=== PATIENT | female | born 1945 | race Caucasian/White ===

== ENCOUNTER 2019-08-17 08:30 | Observation (INO) | payer MEDICARE, OTHER ==
--- NOTE | 2019-08-17 09:09 | RAD ---
Chest one view HISTORY: Weakness. Dyspnea. COMPARISON: 12/06/2014. FINDINGS: Cardiac silhouette is magnified by projection. Pulmonary vasculature is unremarkable. Mediastinum is midline with a dual lead left subclavian cardiac electronic device. Right hemidiaphragm elevation is unchanged. No lobar consolidation or evidence of pneumothorax. IMPRESSION : No active cardiopulmonary abnormalities are demonstrated.
[2019-08-17 09:15] LABS: #Basophils 0.1 thou/uL (0.0-0.2); #Eosinphils 0.5 thou/uL (0.0-0.7); #Lymphocytes 3.7 thou/uL (1.20-3.40); #Monocytes 0.9 thou/uL (0.11-0.59); #Neutrophils 9.4 thou/uL (1.40-6.50); %Basophils 0.6 % (0.0-1.0); %Eosinophils 3.4 % (0.0-10.0); %Lymphocytes 25.2 % (21.0-51.0); %Monocytes 6.2 % (0.0-10.0); %Neutrophils 64.6 % (42.0-75.0); Hemoglobin 10.2 g/dL (12.0-16.0); Mean Corpuscular HGB CONC 33.1 g/dL (32.0-36.0); Mean Corpuscular Hemoglobin 30.3 pg (27.0-31.0); Mean Corpuscular Volume 91.8 fL (78.0-98.0); Mean Platelet Volume 8.6 fL (7.4-10.4); Platelet Count 307 thou/uL (130-400); RBC Distribution Width 15.1 % (11.5-14.5); Red Blood Cell (RBC) Count 3.38 mill/uL (4.20-5.40); White Blood Cell (WBC) Count 14.5 thou/uL (4.8-10.8)
[2019-08-17] MEDS ORDERED: cefTRIAXone\\ROCEPHIN 2 GM VIAL ONE (09:19)
[2019-08-17] MEDS ORDERED: Sodium Chloride 0.9% 100 ML ONE (09:19)
[2019-08-17 09:21] LABS: Bilirubin Negative (Negative); Blood, Urine Negative (Negative); Clarity Clear (Clear); Glucose, Urine (Dipstick) Normal (Negative); Leukocyte Negative Leu/uL (Negative); Nitrite Negative (Negative); Protein, Urine (Dipstick) Negative (Neg-Trace); Urobilinogen Normal mg/dL (Less than 2)
[2019-08-17 09:39] LABS: ALT (SGPT) 18 U/L (8-55); AST (SGOT) 29 U/L (5-34); Alkaline Phosphatase 53 U/L (40-110); Anion Gap 14 mmol/L (10-20); BUN (Urea Nitrogen) 13 mg/dL (9.8-20.1); Bilirubin, Total 0.5 mg/dL (0.2-1.2); Calc. Creatinine Clearance 0 mL/min (70-130); Calcium 9.6 mg/dL (7.8-10.44); Carbon Dioxide 23 mmol/L (23-31); Chloride 108 mmol/L (98-107); Estimated GFR-MDRD 62; Globulin 3.6 g/dL (2.4-3.5); Glucose 127 mg/dL (83-110); Potassium 3.7 mmol/L (3.5-5.1); Protein, Total 7.6 g/dL (6.0-8.3); Sodium 141 mmol/L (136-145)
--- NOTE | 2019-08-17 14:07 | CT ---
CT OF THE HEAD WITHOUT CONTRAST: 08/17/19 COMPARISON: 12/05/14. HISTORY: Weakness, history of multiple strokes. TECHNIQUE: Axial CT imaging at 5 mm intervals from vertex through skull base without contrast. FINDINGS: The imaged paranasal sinuses and mastoid air cells are well aerated. There is no displaced calvarial fracture, intracranial hemorrhage, midline shift, or mass effect. There is atherosclerotic calcification involving the distal left vertebral artery and bilateral indira nous carotid arteries. IMPRESSION: No intracranial hemorrhage, midline shift or mass effect. If there is clinical concern for acute infa rction, follow-up brain MRI suggested. POS: BLACK
[2019-08-17] MEDS ORDERED: Acetaminophen 325 MG TAB PO PRN (16:11)
[2019-08-17] MEDS ORDERED: Ondansetron PF 4 MG/2 ML Vial IVP PRN (16:11)
[2019-08-17] MEDS ORDERED: Ondansetron ODT 4 MG TAB SL PRN (16:11)
--- NOTE | 2019-08-17 16:37 | PDOC.FPRHP ---
- History of Present Illness Chief Complaint: Fatigue History of Present Illness: Pt is a 73 yo female with PMH significant for hypothyroidism, DM I, HLD, vascular dementia, HTN, CAD s/p pacemaker, CKD II, hx of cardiac murmur who presents to the emergency department for increasing weakness over the last few days. Her is her primary liquid sugar fortifier who states he is unable to care for the pt at home. Her can usually assist with her ADL's but now she is unable to get out of bed with his assistance. She denied any other symptoms during my interview. Of note, she endorsed LLQ abdominal pain to Dr. Chung. [facility] ED Course: In the ED CXR, Brain CT were WNL. UA was clean. She had an elevated white count. - Allergies/Adverse Reactions Allergies Allergy/AdvReac Type Severity Reaction Status Date / Time Iodine and Iodide Containing Allergy Verified 05/25/19 13:33 Produc meperidine HCl [From Demerol] Allergy Verified 05/25/19 13:33 propoxyphene HCl Allergy Verified 05/25/19 13:33 [From Darvon] - Home Medications Medication Instructions Recorded Confirmed Type Fenofibrate Nanocrystallized 145 mg PO DAILY 12/03/14 08/17/19 History [Tricor] Losartan Potassium [Cozaar] 100 mg PO DAILY 12/03/14 08/17/19 History Metoprolol Succinate 50 mg PO DAILY 12/03/14 08/17/19 History Pregabalin [Lyrica] 75 mg PO BID 12/03/14 08/17/19 History Venlafaxine HCl [Effexor XR] 75 mg PO BID 12/03/14 08/17/19 History Amlodipine [Norvasc] 10 mg PO DAILY #0 tab 12/18/14 08/17/19 Rx Clopidogrel Bisulfate [Plavix] 75 mg PO DAILY #0 tab 12/18/14 08/17/19 Rx Albuterol Sulfate [Proair HFA] 1 puff INH Q4HR PRN 08/17/19 08/17/19 History Aspirin 81 mg PO DAILY 08/17/19 08/17/19 History Atorvastatin Calcium [Lipitor] 40 mg PO QPM 08/17/19 08/17/19 History Insulin Lispro [Humalog Kwikpen] 5 - 10 unit SQ BID 08/17/19 08/17/19 History Levemir Flexpen [Levemir FlexPen] 30 units SC 1800 08/17/19 08/17/19 History Levothyroxine Sodium [Synthroid] 25 mcg PO DAILY 08/17/19 08/17/19 History metFORMIN [Glucophage] 850 mg PO BID 08/17/19 08/17/19 History - History PMHx: hypothyroidism, DM I, HLD, vascular dementia, HTN, CAD s/p pacemaker, CKD II, hx of cardiac murmur PSHx: hysterectomy, L4-L5 fusion, Pacemaker FHx: Father - htn Social: Denies tobacco, alcohol, drugs - Review of Systems General: denies: fever/chills, weight/appetite/sleep changes Eyes: denies: eye pain, vision changes ENT: denies: nasal congestion, rhinorrhea Respiratory: denies: cough, congestion, shortness of breath Cardiovascular: denies: chest pain, palpitation, edema Gastrointestinal: reports: abdominal pain. denies: nausea, vomiting, diarrhea, constipation Genitourinary: denies: incontinence, dysuria Skin: denies: rashes, lesions Musculoskeletal: denies: pain, tenderness Neurological: reports: weakness. denies: numbness, syncope Psychological: denies: anxiety, depression - Vital signs BP: 145/92 HR: 78 RR: 20 Tmax: 97.7 Pox: 96% on RA Wt: 82 kg - Physical Exam Constitutional: NAD, awake, alert and oriented HEENT: PERRLA, EOMI Neck: FROM, trachea midline, no JVD Heart: RRR, normal S1/S2, no edema -Heart: 3/6 systolic murmur noted on exam Lungs: CTAB, no respiratory distress Abdomen: soft, bowel sounds present -Abdomen: large abdomen, did not appreciate significant tenderness of my exam Musculoskeletal: normal structure, normal tone Neurological: no focal deficit, CN II-XII intact, normal sensation Skin: no rash/lesions, capillary refill <2 seconds Heme/Lymphatic: no purpura, no petechia Psychiatric: normal mood and affect FMR H&P: Results - Labs Result Diagrams: 08/17/19 09:07 08/17/19 09:07 Lab results: WBC 14.5 thou/uL (4.8-10.8) H 08/17/19 09:07 Hgb 10.2 g/dL (12.0-16.0) L 08/17/19 09:07 Hct 31.0 % (36.0-47.0) L 08/17/19 09:07 MCV 91.8 fL (78.0-98.0) 08/17/19 09:07 Plt Count 307 thou/uL (130-400) 08/17/19 09:07 Neutrophils % 64.6 % (42.0-75.0) 08/17/19 09:07 Sodium 141 mmol/L (136-145) 08/17/19 09:07 Potassium 3.7 mmol/L (3.5-5.1) 08/17/19 09:07 Chloride 108 mmol/L (98-107) H 08/17/19 09:07 Carbon Dioxide 23 mmol/L (23-31) 08/17/19 09:07 BUN 13 mg/dL (9.8-20.1) 08/17/19 09:07 Creatinine 0.90 mg/dL (0.6-1.1) 08/17/19 09:07 Glucose 127 mg/dL (83-110) H 08/17/19 09:07 Calcium 9.6 mg/dL (7.8-10.44) 08/17/19 09:07 Total Bilirubin 0.5 mg/dL (0.2-1.2) 08/17/19 09:07 AST 29 U/L (5-34) 08/17/19 09:07 ALT 18 U/L (8-55) 08/17/19 09:07 Alkaline Phosphatase 53 U/L (40-110) 08/17/19 09:07 Serum Total Protein 7.6 g/dL (6.0-8.3) 08/17/19 09:07 Albumin 4.0 g/dL (3.4-4.8) 08/17/19 09:07 Urine Ketones Negative mg/dL (Negative) 08/17/19 09:00 Urine Blood Negative (Negative) 08/17/19 09:00 Urine Nitrite Negative (Negative) 08/17/19 09:00 Ur Leukocyte Esterase Negative Erika/uL (Negative) 08/17/19 09:00 - EKG Interpretation EKG: NSR - Radiology Interpretation Chest x-ray Status: image reviewed by me, report reviewed by me Additional comment: no acute abnormalities CT scan - head Status: report reviewed by me Additional comment: no acute abnormalities FMR H&P: A/P - Problem List (1) Physical deconditioning Current Visit: Yes Status: Acute Code(s): R53.81 - OTHER MALAISE (2) LLQ discomfort Current Visit: Yes Status: Acute Code(s): R10.32 - LEFT LOWER QUADRANT PAIN (3) CVA (cerebral vascular accident) Current Visit: No Status: Acute Code(s): I63.9 - CEREBRAL INFARCTION, UNSPECIFIED Qualifiers: CVA mechanism: thrombosis Precerebral and cerebral artery: unspecified cerebral artery Qualified Code(s): I63.30 - Cerebral infarction due to thrombosis of unspecified cerebral artery (4) Diabetes 1.5, managed as type 2 Current Visit: No Status: Chronic Code(s): E13.9 - OTHER SPECIFIED DIABETES MELLITUS WITHOUT COMPLICATIONS (5) Dyslipidemia Current Visit: No Status: Chronic Code(s): E78.5 - HYPERLIPIDEMIA, UNSPECIFIED - Plan Pt is a 73 yo female here for deconditioning, LLQ pain: # Deconditioning # Weakness - discussed with Senior Placement Advisors - will see pt - Acute rehab consult placed - pt and agree with plan - denied by [facility] out of ED due to insurance # LLQ Pain - discuss with Dr. Craven about CT Abdomen in the setting of a leukocytosis , weakness # CAD s/p pacemaker - continue home meds # Hypothyroid - continue home meds # HTN - continue home meds # Vascular Dementia - monitor # DM - continue home meds # CKD Stage II - monitor # Systolic Cardiac Murmur - known Diet: HH VTE: SCD's Fluids: SL Code: DNR Dispo: admit to medical obs FMR H&P: Upper Level - Plan Date/Time: 08/17/19 0987 Gagandeep Metcalf, DO PGY3, have evaluated this patient and agree with findings/ plan as outlined by supply chain intern resident. Pertinent changes/additions are listed here. This is a 73 yo F w/hx of CAD, CVA, DM2, aortic stenosis and vascular dementia. Upon H&P she appears to be A&O x4, however her answers are disjointed and dont always make sense. No family or friends are available. Per ERMD she was brought to the ER for weakness, however pt states that she was having belly pain all day. Other than a WBC count of 14.5 her labs and vitals are WNL. Her exam is significant for 3/6 systolic murmur that radiates to her carotids and LLQ and suprapubic tenderness. UTI or diverticulitis are within the DDX for her pain. UA is not c/w UTI, thus will consider CT abd/pelvis with contrast. Otherwise will have pt evaluated for rehab placement as it appears the major reason for her presentation is deconditioning Addendum - Attending - Attending Attestation Date/Time: 08/18/19 0512 I personally evaluated the patient and discussed the management with Dr. Raymond. I agree with the History, Examination, Assessment and Plan documented above with any addition or exceptions noted below.
[2019-08-17] MEDS ORDERED: Albuterol Sulfate 2.5 mg/0.5 ml Neb NEB PRN (17:57)
[2019-08-17] MEDS ORDERED: HumaLOG 300 UNITS/3 ML VIAL SC PRN (17:59)
[2019-08-17] MEDS ORDERED: Dextrose 5% in Water 1,000 ML IV PRN (17:59)
[2019-08-17] MEDS ORDERED: Dextrose 50% Abboject 50 ML SYRINGE SLOW IVP PRN (17:59)
[2019-08-17] MEDS ORDERED: Insulin Glargine 30 UNITS in Pre-Filled Syringe 1 EACH SC SCH (18:00)
[2019-08-17] MEDS ORDERED: Non-Formulary Item 1 EACH (Levemir Flexpen [Levemir Flexpen] 30 UNITS) SC SCH (18:00)
[2019-08-17] MEDS: Pregabalin 75 MG CAP PO SCH (20:56)
[2019-08-17] MEDS: Atorvastatin Calcium 40 MG TAB PO SCH (20:56)
[2019-08-17] MEDS: predniSONE 50 MG TAB PO SCH (20:56)
[2019-08-17] MEDS: metFORMIN 850 MG TAB PO SCH (20:56)
[2019-08-17] MEDS: Venlafaxine HCl XR 75 MG CAP PO SCH (21:03)
[2019-08-17] MEDS: Acetaminophen 325 MG TAB PO PRN (21:48)
[2019-08-18] MEDS: predniSONE 50 MG TAB PO SCH ×2 (01:41→08:00)
[2019-08-18] MEDS: Levothyroxine Sodium 25 MCG TAB PO SCH (05:35)
[2019-08-18] MEDS: HumaLOG 300 UNITS/3 ML VIAL SC PRN ×2 (05:36→12:30)
--- NOTE | 2019-08-18 06:34 | PDOC.FM ---
- Subjective Subjective: Pt is awake in bed. is not at bedside. She is AAO x 3. Does require some redirecting. She endorsed LQ abdominal pain. She denies constipation or diarrhea. She otherwise has no complaints. - Objective Vital Signs & Weight: Vital Signs (12 hours) Temp Pulse Resp BP Pulse Ox 08/18/19 05:00 98.0 F 87 16 148/81 H 93 L 08/18/19 00:36 97.8 F 85 18 127/62 95 08/18/19 00:00 97.8 F 88 18 127/62 95 08/17/19 20:33 98.0 F 85 18 143/71 H 93 L Weight Weight 81 kg Result Diagrams: 08/18/19 06:50 08/17/19 09:07 Phys Exam - Physical Examination Constitutional: NAD HEENT: PERRLA, moist MMs Neck: no nodes, full ROM Respiratory: no wheezing, clear to auscultation bilateral Cardiovascular: RRR 3/6 systolic murmur Gastrointestinal: soft, no distention, positive bowel sounds mild tenderness to deep palpation in LQ, no rebound or guarding Musculoskeletal: no edema, pulses present Neurological: moves all 4 limbs Dx/Plan (1) Physical deconditioning Code(s): R53.81 - OTHER MALAISE Status: Acute (2) LLQ discomfort Code(s): R10.32 - LEFT LOWER QUADRANT PAIN Status: Acute (3) CVA (cerebral vascular accident) Code(s): I63.9 - CEREBRAL INFARCTION, UNSPECIFIED Status: Acute Qualifiers: CVA mechanism: thrombosis Precerebral and cerebral artery: unspecified cerebral artery Qualified Code(s): I63.30 - Cerebral infarction due to thrombosis of unspecified cerebral artery (4) Diabetes 1.5, managed as type 2 Code(s): E13.9 - OTHER SPECIFIED DIABETES MELLITUS WITHOUT COMPLICATIONS Status: Chronic (5) Dyslipidemia Code(s): E78.5 - HYPERLIPIDEMIA, UNSPECIFIED Status: Chronic - Plan Plan: Pt is a 73 yo female here for deconditioning, LLQ pain: # Deconditioning # Weakness - discussed with Senior Placement Advisors - will see pt - Acute rehab consult placed - pt and agree with plan - denied by [facility] out of ED due to insurance # LLQ Pain - pending u/s. Pt has allergy to iodine # CAD s/p pacemaker - continue home meds # Hypothyroid - continue home meds # HTN - continue home meds # Vascular Dementia - monitor # Hx of CVA - R sided sensory deficits - not documented in exam yesterday; will need to confirm with today - pending MRI # DM - continue home meds # CKD Stage II - monitor # Systolic Cardiac Murmur - known Diet: HH VTE: SCD's Fluids: SL Code: DNR Dispo: admit to medical obs Addendum - Attending - Attending Attestation Date/Time: 08/18/19 1302 I personally evaluated the patient and discussed the management with Dr. Raymond. I agree with the History, Examination, Assessment and Plan documented above with any addition or exceptions noted below.
[2019-08-18 07:28] LABS: Hemoglobin 10.4 g/dL (12.0-16.0); Mean Corpuscular HGB CONC 33.2 g/dL (32.0-36.0); Mean Corpuscular Hemoglobin 30.1 pg (27.0-31.0); Mean Corpuscular Volume 90.6 fL (78.0-98.0); Platelet Count 333 thou/uL (130-400); Red Blood Cell (RBC) Count 3.44 mill/uL (4.20-5.40); White Blood Cell (WBC) Count 10.6 thou/uL (4.8-10.8)
[2019-08-18] MEDS ORDERED: diphenhydrAMINE 25 MG CAP PO SCH (08:00)
[2019-08-18] MEDS: Venlafaxine HCl XR 75 MG CAP PO SCH ×2 (09:58→20:39)
[2019-08-18] MEDS: Amlodipine 5 MG TAB PO SCH (09:58)
[2019-08-18] MEDS: Fenofibrate Nanocrystallized 145 MG TAB PO SCH (09:59)
[2019-08-18] MEDS: Clopidogrel Bisulfate 75 MG TAB PO SCH (09:59)
[2019-08-18] MEDS: Losartan 25 MG TAB PO SCH (09:59)
[2019-08-18] MEDS: Pregabalin 75 MG CAP PO SCH ×2 (10:00→20:38)
[2019-08-18] MEDS: Aspirin Chewable 81 MG TAB PO SCH (10:00)
[2019-08-18] MEDS: metFORMIN 850 MG TAB PO SCH ×2 (10:08→20:38)
[2019-08-18 10:37] LABS: Band 2 % (5-11); Lymphocytes 17 % (21-51); MDiff Complete? YES; Neutrophil 81 % (42-75); Platelet Morphology Comment Appears Adequate; Polychromasia SLIGHT = 2-3 cells (100X) (0-2/hpf)
--- NOTE | 2019-08-18 11:50 | CT ---
CT OF THE ABDOMEN AND PELVIS WITH CONTRAST: COMPARISON: CT abdomen/pelvis 10/31/2015. HISTORY: Left lower quadrant abdominal pain and leukocytosis. TECHNIQUE: Multiple contiguous axial images were obtained in a CT of the abdomen and pelvis with contrast. Sagi ttal and coronal reformats were performed. FINDINGS: Thee is a subcentimeter hypodensity in the right kidney which is too small to definitely characterize but could represent a cyst. A nonobstructing calcification is seen within the left kidney measuring 3 mm in size. There is a 1.0 cm hypodensity in the tail of the pancreas. The liver, gallbladder, a drenal gland, and spleen are unremarkable. The patient is status post hysterectomy. The large and small bowel are unremarkable. No free air, f ree fluid, or stranding changes are seen in the abdomen or pelvis. The abdominal or pelvic lymphaden opathy are seen. Atherosclerotic calcifications are seen in the aorta. Degenerative changes are seen in the spine. The visualized inferior thorax and abdominal wall soft t issues are unremarkable. IMPRESSION: 1. No evidence of acute intraabdominal/pelvic abnormality. 2. Pancreatic hypodensity is stable compared to the prior examination and may represent a small simp le cyst or a pseudocyst. 3. Likely small right renal cyst also remains stable. 4. Nonobstructing left renal calcification. POS: EZEQUIELA
[2019-08-18 12:34] LABS: Bacteria/HPF None Seen HPF (None Seen); Bilirubin Negative (Negative); Blood, Urine 1+ (Negative); Clarity Clear (Clear); Glucose, Urine (Dipstick) 30 mg/dL (Negative); Leukocyte 75 Leu/uL (Negative); Nitrite Negative (Negative); Protein, Urine (Dipstick) 50 mg/dL (Neg-Trace); Squamous Epithelial 0-3 HPF (0-3); Urobilinogen Normal mg/dL (Less than 2)
[2019-08-18 12:36] LABS: Urine Culture Reflex Yes Yes
[2019-08-18] MEDS ORDERED: Iopamidol-370 76% 500 ML 1 ML ONE (13:17)
[2019-08-18] MEDS: Lactated Ringer's 1,000 ML IV SCH ×2 (16:48→23:54)
[2019-08-18] MEDS ORDERED: Prevnar 13-Val Conj/PF 0.5 ML SYRINGE IM ONE (17:45)
[2019-08-18] MEDS: Insulin Glargine 30 UNITS in Pre-Filled Syringe 1 EACH SC SCH (17:55)
[2019-08-18] MEDS: Atorvastatin Calcium 40 MG TAB PO SCH (20:38)
[2019-08-18] MEDS: Senokot S 8.6-50 MG TAB PO SCH (20:39)
[2019-08-19] MEDS: Levothyroxine Sodium 25 MCG TAB PO SCH (05:36)
--- NOTE | 2019-08-19 05:52 | PDOC.FM ---
- Subjective Subjective: Patient was resting comfortably in bed at the time of evaluation. She denied any acute overnight events, but stated that she was unable with the nurses for an unknown reason. Patient demonstrate difficulty with word finding and was slow to answer questions, often requiring redirection. - Objective Vital Signs & Weight: Vital Signs (12 hours) Temp Pulse Resp BP Pulse Ox 08/18/19 23:56 98.3 F 08/18/19 20:36 99.3 F 78 16 129/75 96 Weight Weight 81 kg I&O: 08/17/19 08/18/19 08/19/19 06:59 06:59 06:59 Intake Total 240 Output Total 200 975 Balance 40 -975 Result Diagrams: 08/18/19 06:50 08/19/19 08:51 Phys Exam - Physical Examination Constitutional: NAD HEENT: PERRLA, moist MMs, oral pharynx no lesions Neck: supple, full ROM Respiratory: no wheezing, no rales, no rhonchi, clear to auscultation bilateral Cardiovascular: RRR, no significant murmur, no rub Gastrointestinal: soft, non-tender, no distention, positive bowel sounds Musculoskeletal: no edema, pulses present Right sided weakness - patient states that she is at baseline Deviation from normal: A&Ox2 Skin: no rash Dx/Plan (1) LLQ discomfort Code(s): R10.32 - LEFT LOWER QUADRANT PAIN Status: Acute (2) Physical deconditioning Code(s): R53.81 - OTHER MALAISE Status: Acute (3) Dehydration, mild Code(s): E86.0 - DEHYDRATION Status: Acute (4) Diabetes 1.5, managed as type 2 Code(s): E13.9 - OTHER SPECIFIED DIABETES MELLITUS WITHOUT COMPLICATIONS Status: Chronic (5) Dyslipidemia Code(s): E78.5 - HYPERLIPIDEMIA, UNSPECIFIED Status: Chronic (6) Hypertension Code(s): I10 - ESSENTIAL (PRIMARY) HYPERTENSION Status: Chronic Qualifiers: Hypertension type: essential hypertension Qualified Code(s): I10 - Essential (primary) hypertension - Plan Plan: Patient is a 73 y/o female who presented to the ED for evaluation of physical deconditioning after patient's stated that he was no longer to care for her at home. # Deconditioning - Senior Placement Advisors: Consulted, recs appreciated - Acute Rehab consult placed - patient and both agree with plan - Patient was denied by [facility] following evaluation in ED 04/09 insurance provider # LLQ Pain - WBCs: 14.5 on admission - down to 10.6 on 08/17 - possibly Reactive Leukocytosis - CT ABD/Pelvis: NAF - Possibly 04/09 to urinary retention / stool retention - patient required Martínez catheter placement overnight - Martínez catheter placed on 08/18 - s/p evacuation of 350 ml of clear urine - Senokot S for constipation - Will monitor closely # CAD s/p pacemaker - Will continue home medication regimen # Hypothyroid - Continue home medication regimen # HTN - Continue home medication regimen # Vascular Dementia - Patient's stated that patient was altered from baseline, although reportedly A&Ox3 on initial evaluation - See below # Hx of CVA - Right-sided sensory deficits - not documented on previous exam; will need to confirm with today - Patient states that her right-sided deficits are stable, but patient was A& Ox2 so clinical picture is still unclear - CT Brain: NAF - MRI Brain: Pending # DM2 - Continue home medication regimen # CKD Stage II - Will continue to monitor # Systolic Cardiac Murmur - Stable - Will continue to monitor CODE: DNR PCP: IAN Fletcher Diet: LUCILA VTE: SCD's Fluids: SL Dispo: Patient is currently stable and admitted to the Medical Floor for ongoing evaluation of deconditioning. Case Management / Senior Placement Advisors consulted, recs appreciated. Will continue to evaluate for possible neurocognitive deficits - MRI pending later today. Expected LOS > 48H. Addendum - Attending - Attending Attestation Date/Time: 08/19/19 5980 I personally evaluated the patient and discussed the management with Dr. Forrester. I agree with the History, Examination, Assessment and Plan documented above with any addition or exceptions noted below. Patient status unchanged. We are still unable to find a cause of her supposed acute decline in function and mentation, or anything that would support an inpatient diagnosis. Possible MRI to evaluate for recurrent CVA but may not be possible due to her PM. CM working on placement.
[2019-08-19] MEDS: Senokot S 8.6-50 MG TAB PO SCH ×2 (08:24→21:23)
[2019-08-19] MEDS: Fenofibrate Nanocrystallized 145 MG TAB PO SCH (08:24)
[2019-08-19] MEDS: Amlodipine 5 MG TAB PO SCH (08:24)
[2019-08-19] MEDS: Clopidogrel Bisulfate 75 MG TAB PO SCH (08:25)
[2019-08-19] MEDS: Losartan 25 MG TAB PO SCH (08:25)
[2019-08-19] MEDS: Venlafaxine HCl XR 75 MG CAP PO SCH ×2 (08:26→21:23)
[2019-08-19] MEDS: metFORMIN 850 MG TAB PO SCH ×2 (08:26→21:21)
[2019-08-19] MEDS: Aspirin Chewable 81 MG TAB PO SCH (08:26)
[2019-08-19] MEDS: Pregabalin 75 MG CAP PO SCH ×2 (08:26→21:21)
[2019-08-19 09:28] LABS: Anion Gap 14 mmol/L (10-20); BUN (Urea Nitrogen) 21 mg/dL (9.8-20.1); Calc. Creatinine Clearance 66 mL/min (70-130); Carbon Dioxide 25 mmol/L (23-31); Chloride 104 mmol/L (98-107); Estimated GFR-MDRD 55; Glucose 105 mg/dL (83-110); Potassium 3.4 mmol/L (3.5-5.1); Sodium 140 mmol/L (136-145)
[2019-08-19] MEDS ORDERED: Potassium Chloride 20 MEQ TAB PO SCH (10:45)
[2019-08-19] MEDS: Lactated Ringer's 1,000 ML IV SCH ×3 (13:16→21:23)
[2019-08-19] MEDS: Insulin Glargine 30 UNITS in Pre-Filled Syringe 1 EACH SC SCH (18:24)
[2019-08-19 18:36] VITALS: BMI 33.1
[2019-08-19] MEDS: Atorvastatin Calcium 40 MG TAB PO SCH (21:21)
[2019-08-20] MEDS: Lactated Ringer's 1,000 ML IV SCH ×2 (03:54→08:32)
[2019-08-20] MEDS: Acetaminophen 325 MG TAB PO PRN (03:54)
[2019-08-20] MEDS: Levothyroxine Sodium 25 MCG TAB PO SCH (05:17)
[2019-08-20 05:37] LABS: #Eosinphils 0.3 thou/uL (0.0-0.7); #Lymphocytes 4.1 thou/uL (1.20-3.40); #Neutrophils 7.6 thou/uL (1.40-6.50); %Basophils 0.4 % (0.0-1.0); %Lymphocytes 31.4 % (21.0-51.0); %Monocytes 7.9 % (0.0-10.0); %Neutrophils 58.4 % (42.0-75.0); Hemoglobin 10.1 g/dL (12.0-16.0); Mean Corpuscular HGB CONC 33.2 g/dL (32.0-36.0); Mean Corpuscular Hemoglobin 30.1 pg (27.0-31.0); Mean Corpuscular Volume 90.8 fL (78.0-98.0); Mean Platelet Volume 8.5 fL (7.4-10.4); Platelet Count 358 thou/uL (130-400); RBC Distribution Width 15.2 % (11.5-14.5); Red Blood Cell (RBC) Count 3.36 mill/uL (4.20-5.40)
--- NOTE | 2019-08-20 05:52 | PDOC.FM ---
- Subjective Subjective: Patient was pleasant and resting comfortably in bed at the time of evaluation. She denied any acute overnight events, to include chest pain, SOB and subjective fevers. Note: Per nursing staff, patient's provided documentation of make/model of current cardiac device. - Objective Vital Signs & Weight: Vital Signs (12 hours) Temp Pulse Resp BP Pulse Ox 08/19/19 21:03 97.7 F 74 17 130/78 92 L Weight Admit Weight 80.739 kg Weight 84.8 kg I&O: 08/18/19 08/19/19 08/20/19 06:59 06:59 06:59 Intake Total 240 1200 1880 Output Total 200 1525 1800 Balance 40 -325 80 Result Diagrams: 08/20/19 05:03 08/20/19 05:03 Phys Exam - Physical Examination Constitutional: NAD HEENT: PERRLA, moist MMs, sclera anicteric, oral pharynx no lesions Neck: supple, full ROM Respiratory: no wheezing, no rales, no rhonchi, clear to auscultation bilateral Cardiovascular: RRR, no rub 3/6 systolic murmur with radiation to both Carotid Arteries Gastrointestinal: soft, non-tender, no distention, positive bowel sounds Musculoskeletal: no edema, pulses present Neurological: non-focal Continued right-sided weakness of upper/lower extremities Psychiatric: normal affect Deviation from normal: A&Ox2 (Person, Time) Skin: no rash Dx/Plan (1) LLQ discomfort Code(s): R10.32 - LEFT LOWER QUADRANT PAIN Status: Acute (2) Physical deconditioning Code(s): R53.81 - OTHER MALAISE Status: Acute (3) Dehydration, mild Code(s): E86.0 - DEHYDRATION Status: Acute (4) Diabetes 1.5, managed as type 2 Code(s): E13.9 - OTHER SPECIFIED DIABETES MELLITUS WITHOUT COMPLICATIONS Status: Chronic (5) Dyslipidemia Code(s): E78.5 - HYPERLIPIDEMIA, UNSPECIFIED Status: Chronic (6) Hypertension Code(s): I10 - ESSENTIAL (PRIMARY) HYPERTENSION Status: Chronic Qualifiers: Hypertension type: essential hypertension Qualified Code(s): I10 - Essential (primary) hypertension - Plan Plan: Patient is a 73 y/o female who presented to the ED for evaluation of physical deconditioning after patient's stated that he was no longer to care for her at home. # Deconditioning - Senior Placement Advisors: Consulted, recs appreciated - Acute Rehab consult placed - patient and both agree with plan - Patient was denied by [facility] following evaluation in ED 04/09 insurance provider # LLQ Pain - WBCs: 14.5 on admission - down to 10.6 on 08/17 - possibly Reactive Leukocytosis - CT ABD/Pelvis: NAF - Possibly 04/09 to urinary retention / stool retention - patient required Martínez catheter placement overnight - Martínez catheter placed on 08/18 - s/p evacuation of 350 ml of clear urine - Senokot S for constipation - will consider augmenting today if patient complains of constipation - Will monitor closely # CAD s/p pacemaker - Will continue home medication regimen # Hypothyroid - Continue home medication regimen # HTN - Continue home medication regimen # Vascular Dementia - Patient's stated that patient was altered from baseline, although reportedly A&Ox3 on initial evaluation - See below # Hx of CVA - Right-sided sensory deficits - consistent throughout hospitalization - Patient states that her right-sided deficits are stable, but patient was A& Ox2 so clinical picture is still unclear - CT Brain: NAF - MRI Brain: Pending # DM2 - Continue home medication regimen # CKD Stage II - Will continue to monitor # Systolic Cardiac Murmur - Stable - Will continue to monitor CODE: DNR PCP: IAN Fletcher Diet: VTE: SCD's Fluids: SL Dispo: Patient is currently stable and admitted to the Medical Floor for ongoing evaluation of deconditioning - medically stable at this point in time. Case Management / Senior Placement Advisors consulted, recs appreciated. Will continue to evaluate for possible neurocognitive deficits - MRI pending although may not be able to complete based on cardiac device - will confirm with Radiology today. Expected LOS > 48H. Addendum - Attending - Attending Attestation Date/Time: 08/20/19 0800 I personally evaluated the patient and discussed the management with Dr. Forrester. I agree with the History, Examination, Assessment and Plan documented above with any addition or exceptions noted below. Patient more alert this morning with clearer thought and speech. We still have been unable to find any major medical issue or qualifying inpatient diagnosis. CM on board for assistance with placement. Rehab has evaluated patient. Continue home meds and await placement.
[2019-08-20 06:01] LABS: Anion Gap 12 mmol/L (10-20); BUN (Urea Nitrogen) 18 mg/dL (9.8-20.1); Calc. Creatinine Clearance 81 mL/min (70-130); Carbon Dioxide 26 mmol/L (23-31); Chloride 102 mmol/L (98-107); Estimated GFR-MDRD 67; Glucose 79 mg/dL (83-110); Potassium 3.5 mmol/L (3.5-5.1); Sodium 136 mmol/L (136-145)
[2019-08-20] MEDS: Clopidogrel Bisulfate 75 MG TAB PO SCH (08:28)
[2019-08-20] MEDS: Losartan 25 MG TAB PO SCH (08:28)
[2019-08-20] MEDS: Fenofibrate Nanocrystallized 145 MG TAB PO SCH (08:28)
[2019-08-20] MEDS: Potassium Chloride 20 MEQ TAB PO SCH (08:28)
[2019-08-20] MEDS: Amlodipine 5 MG TAB PO SCH (08:29)
[2019-08-20] MEDS: Venlafaxine HCl XR 75 MG CAP PO SCH ×2 (08:29→21:57)
[2019-08-20] MEDS: Aspirin Chewable 81 MG TAB PO SCH (08:30)
[2019-08-20] MEDS: Pregabalin 75 MG CAP PO SCH ×2 (08:30→22:01)
[2019-08-20] MEDS: Senokot S 8.6-50 MG TAB PO SCH ×2 (08:30→22:01)
[2019-08-20] MEDS: metFORMIN 850 MG TAB PO SCH ×2 (08:31→22:00)
[2019-08-20] MEDS ORDERED: Tamsulosin HCl 0.4 MG CAP PO SCH (12:00)
[2019-08-20] MEDS ORDERED: Polyethylene Glycol 3350 17 GM Packet PO SCH (12:00)
[2019-08-20] MEDS ORDERED: Fleet Enema 133 ML BOT PR SCH (14:00)
[2019-08-20] MEDS: Insulin Glargine 30 UNITS in Pre-Filled Syringe 1 EACH SC SCH (17:41)
[2019-08-20] MEDS: Atorvastatin Calcium 40 MG TAB PO SCH (21:57)
[2019-08-21 05:49] LABS: Anion Gap 13 mmol/L (10-20); BUN (Urea Nitrogen) 18 mg/dL (9.8-20.1); Calc. Creatinine Clearance 77 mL/min (70-130); Calcium 9.1 mg/dL (7.8-10.44); Carbon Dioxide 25 mmol/L (23-31); Chloride 103 mmol/L (98-107); Estimated GFR-MDRD 63; Glucose 125 mg/dL (83-110); Potassium 3.7 mmol/L (3.5-5.1); Sodium 137 mmol/L (136-145)
[2019-08-21] MEDS: Levothyroxine Sodium 25 MCG TAB PO SCH (06:13)
--- NOTE | 2019-08-21 06:19 | PDOC.FM ---
- Subjective Subjective: Patient was resting comfortably in bed at the time of evaluation. She denied any acute overnight events, other than poor sleep due to the nature of the hospital bed. - Objective Vital Signs & Weight: Vital Signs (12 hours) Temp Pulse Resp BP Pulse Ox 08/21/19 03:58 97.9 F 72 18 131/80 93 L 08/20/19 23:44 98.1 F 70 18 139/77 95 08/20/19 20:29 97.6 F 67 18 109/68 94 L Weight Admit Weight 80.739 kg Weight 84.8 kg I&O: 08/19/19 08/20/19 08/21/19 06:59 06:59 06:59 Intake Total 1200 1880 480 Output Total 1525 1800 Balance -325 80 480 Result Diagrams: 08/20/19 05:03 08/21/19 05:03 Phys Exam - Physical Examination Constitutional: NAD HEENT: moist MMs, sclera anicteric, oral pharynx no lesions Neck: supple, full ROM Respiratory: no wheezing, no rales, no rhonchi, clear to auscultation bilateral Cardiovascular: RRR, no significant murmur, no rub Gastrointestinal: soft, non-tender, no distention, positive bowel sounds Musculoskeletal: no edema, pulses present Moderately decreased strength and ROM in RUE and RLE Dx/Plan (1) LLQ discomfort Code(s): R10.32 - LEFT LOWER QUADRANT PAIN Status: Acute (2) Physical deconditioning Code(s): R53.81 - OTHER MALAISE Status: Acute (3) Dehydration, mild Code(s): E86.0 - DEHYDRATION Status: Acute (4) Diabetes 1.5, managed as type 2 Code(s): E13.9 - OTHER SPECIFIED DIABETES MELLITUS WITHOUT COMPLICATIONS Status: Chronic (5) Dyslipidemia Code(s): E78.5 - HYPERLIPIDEMIA, UNSPECIFIED Status: Chronic (6) Hypertension Code(s): I10 - ESSENTIAL (PRIMARY) HYPERTENSION Status: Chronic Qualifiers: Hypertension type: essential hypertension Qualified Code(s): I10 - Essential (primary) hypertension - Plan Plan: Patient is a 73 y/o female who presented to the ED for evaluation of physical deconditioning and possible AMS after patient's stated that he was no longer able to care for her at home. # Deconditioning - Senior Placement Advisors: Consulted, recs appreciated - Acute Rehab consult placed - patient and both agree with plan - Patient was denied by [facility] following evaluation in ED / insurance provider # LLQ Pain - WBCs: 14.5 on admission - down to 10.6 on 08/17 - possibly Reactive Leukocytosis - CT ABD/Pelvis: NAF - Possibly 2/2 to urinary retention / stool retention - patient has Martínez Catheter in place - Voiding Trial: Passed on 08/19 - will attempt to d/c Martínez later this AM - Senokot S, Miralax and Fleets Enemas for constipation - s/p "massive" bowel movement on 08/19, per Nursing - Will monitor closely # CAD s/p pacemaker - Will continue home medication regimen # Hypothyroid - Continue home medication regimen # HTN - Continue home medication regimen # Vascular Dementia - Patient's stated that patient was altered from baseline on presentation, although reportedly A&Ox3 on initial evaluation - Patient's now notes that patient is "more like herself" - See below # Hx of CVA - Right-sided sensory deficits - consistent throughout hospitalization - Patient states that her right-sided deficits are stable, but patient was A& Ox2 so clinical picture is still unclear - CT Brain: NAF - MRI Brain: Pending - Will likely not performed based on cardiac device - will re-engage with Radiology today # DM2 - Continue home medication regimen # CKD Stage II - Will continue to monitor # Systolic Cardiac Murmur - Stable - Will continue to monitor CODE: DNR PCP: IAN Fletcher Diet: HH VTE: SCD's Fluids: SL Dispo: Patient is currently stable and admitted to the Medical Floor for ongoing evaluation of deconditioning - medically stable at this point in time. Case Management / Senior Placement Advisors consulted, recs appreciated. Will continue to evaluate for possible neurocognitive deficits - MRI pending although may not be able to complete based on cardiac device - will confirm with Radiology today. Expected LOS > 48H. Addendum - Attending - Attending Attestation Date/Time: 08/21/19 0049 I personally evaluated the patient and discussed the management with Dr. Forrester I agree with the History, Examination, Assessment and Plan documented above with any addition or exceptions noted below - Patient without complaints. Afebrile VSS A/P: 1) Deconditioning- awaiting insurance approval for rehab. Continue PT/OT. 2) Urinary retention- voiding trial passed. 3) Constipation- resolved; continue bowel regimen
[2019-08-21] MEDS: Acetaminophen 325 MG TAB PO PRN ×2 (08:31→16:45)
[2019-08-21] MEDS: Clopidogrel Bisulfate 75 MG TAB PO SCH (08:35)
[2019-08-21] MEDS: Senokot S 8.6-50 MG TAB PO SCH ×2 (08:35→21:20)
[2019-08-21] MEDS: Tamsulosin HCl 0.4 MG CAP PO SCH (08:35)
[2019-08-21] MEDS: Fenofibrate Nanocrystallized 145 MG TAB PO SCH (08:35)
[2019-08-21] MEDS: Aspirin Chewable 81 MG TAB PO SCH (08:35)
[2019-08-21] MEDS: metFORMIN 850 MG TAB PO SCH ×2 (08:35→21:20)
[2019-08-21] MEDS: Venlafaxine HCl XR 75 MG CAP PO SCH ×2 (08:35→21:20)
[2019-08-21] MEDS: Polyethylene Glycol 3350 17 GM Packet PO SCH (08:36)
[2019-08-21] MEDS: Potassium Chloride 20 MEQ TAB PO SCH (08:36)
[2019-08-21] MEDS: Fleet Enema 133 ML BOT PR SCH (08:36)
[2019-08-21] MEDS: Pregabalin 75 MG CAP PO SCH ×2 (08:37→21:21)
[2019-08-21] MEDS: Amlodipine 5 MG TAB PO SCH ×2 (08:57→09:46)
[2019-08-21] MEDS: Losartan 25 MG TAB PO SCH ×2 (08:57→09:45)
[2019-08-21] MEDS ORDERED: Ondansetron ODT 4 MG TAB PO PRN (13:18)
[2019-08-21] MEDS: HumaLOG 300 UNITS/3 ML VIAL SC PRN (16:44)
[2019-08-21] MEDS: Insulin Glargine 30 UNITS in Pre-Filled Syringe 1 EACH SC SCH (17:52)
[2019-08-21] MEDS: Atorvastatin Calcium 40 MG TAB PO SCH (21:20)
[2019-08-22 05:53] LABS: Anion Gap 10 mmol/L (10-20); BUN (Urea Nitrogen) 19 mg/dL (9.8-20.1); Calc. Creatinine Clearance 72 mL/min (70-130); Calcium 8.9 mg/dL (7.8-10.44); Carbon Dioxide 26 mmol/L (23-31); Chloride 104 mmol/L (98-107); Estimated GFR-MDRD 59; Glucose 99 mg/dL (83-110); Potassium 3.8 mmol/L (3.5-5.1); Sodium 136 mmol/L (136-145)
[2019-08-22] MEDS: Levothyroxine Sodium 25 MCG TAB PO SCH (05:54)
--- NOTE | 2019-08-22 05:55 | PDOC.FM ---
- Subjective Subjective: Patient was resting comfortably in bed, watching TV, at the time of evaluation. Patient denied any acute overnight events, but demonstrated notable difficulty with word-finding compared to previous exam. Patient was A&Ox3. - Objective Vital Signs & Weight: Vital Signs (12 hours) Temp Pulse Resp BP BP Pulse Ox 08/22/19 04:14 97.9 F 69 18 108/67 94 L 08/22/19 00:00 98 F 80 16 124/72 95 08/21/19 20:00 97.9 F 60 18 103/68 103/68 96 Weight Admit Weight 80.739 kg Weight 84.8 kg I&O: 08/20/19 08/21/19 08/22/19 06:59 06:59 06:59 Intake Total 1880 480 610 Output Total 1800 950 Balance 80 480 -340 Result Diagrams: 08/20/19 05:03 08/22/19 05:03 Phys Exam - Physical Examination Constitutional: NAD HEENT: moist MMs, sclera anicteric, oral pharynx no lesions Neck: supple, full ROM Respiratory: no wheezing, no rales, no rhonchi, clear to auscultation bilateral Cardiovascular: RRR, no rub 3/6 systolic murmur heard diffusely, with radiation to Carotid Arteries Gastrointestinal: soft, non-tender, no distention, positive bowel sounds Musculoskeletal: no edema, pulses present Right-sided weakness - stable Psychiatric: A&O x 3 Skin: no rash Dx/Plan (1) LLQ discomfort Code(s): R10.32 - LEFT LOWER QUADRANT PAIN Status: Resolved (2) Physical deconditioning Code(s): R53.81 - OTHER MALAISE Status: Acute (3) Dehydration, mild Code(s): E86.0 - DEHYDRATION Status: Resolved (4) Diabetes 1.5, managed as type 2 Code(s): E13.9 - OTHER SPECIFIED DIABETES MELLITUS WITHOUT COMPLICATIONS Status: Chronic (5) Dyslipidemia Code(s): E78.5 - HYPERLIPIDEMIA, UNSPECIFIED Status: Chronic (6) Hypertension Code(s): I10 - ESSENTIAL (PRIMARY) HYPERTENSION Status: Chronic Qualifiers: Hypertension type: essential hypertension Qualified Code(s): I10 - Essential (primary) hypertension - Plan Plan: Patient is a 73 y/o female who presented to the ED for evaluation of physical deconditioning and possible AMS after patient's stated that he was no longer able to care for her at home. # Deconditioning - Senior Placement Advisors: Consulted, recs appreciated - currently pending insurance provider authorization - Acute Rehab consult placed - patient and both agree with plan - Patient was denied by [facility] following evaluation in ED 04/09 insurance provider - PT/OT: Consulted, recs appreciated # LLQ Pain, resolved - WBCs: 14.5 on admission - down to 10.2 on 08/17 w/ slight bump to 13.0 on 08/18 - possibly Reactive Leukocytosis - Patient afebrile w/ VSS - CT ABD/Pelvis: NAF - Possibly 04/09 to urinary retention / stool retention - Voiding Trial: Passed on 08/19 - Martínez DC'd on 08/20 - Senokot S, Miralax and Fleets Enemas for constipation - s/p "massive" bowel movement on 08/19, per Nursing - Patient denies ABD symptoms this AM with benign physical exam # CAD s/p pacemaker - Will continue home medication regimen # Hypothyroid - Continue home medication regimen # HTN - Continue home medication regimen # Vascular Dementia - Patient's stated that patient was altered from baseline on presentation, although reportedly A&Ox3 on initial evaluation - Patient's now notes that patient is "more like herself" - Patient's mood and mental status appear to have improved since initial presentation, w/ A&OX3 on most recent evaluation - See below # Hx of CVA - Right-sided sensory deficits - consistent throughout hospitalization - Patient states that her right-sided deficits are stable - CT Brain: NAF - MRI Brain: Not performed due to patient's cardiac device # DM2 - Continue home medication regimen # CKD Stage II - Will continue to monitor # Systolic Cardiac Murmur - Stable - Will continue to monitor CODE: DNR PCP: IAN Fletcher Diet: HH Activity: Ambulate w/ Assist VTE: SCD's Fluids: SL Dispo: Patient is currently stable and admitted to the Medical Floor for ongoing evaluation of Deconditioning - medically stable at this point in time. Case Management / Senior Placement Advisors consulted, recs appreciated. Will continue to monitor mental status and prep for DC pending insurance provider authorization. Expected LOS > 48H.
[2019-08-22] MEDS: Amlodipine 5 MG TAB PO SCH (07:45)
[2019-08-22] MEDS: Polyethylene Glycol 3350 17 GM Packet PO SCH (07:45)
[2019-08-22] MEDS: Losartan 25 MG TAB PO SCH (07:46)
[2019-08-22] MEDS: Venlafaxine HCl XR 75 MG CAP PO SCH ×2 (07:46→21:05)
[2019-08-22] MEDS: Tamsulosin HCl 0.4 MG CAP PO SCH (07:46)
[2019-08-22] MEDS: Clopidogrel Bisulfate 75 MG TAB PO SCH (07:46)
[2019-08-22] MEDS: Fenofibrate Nanocrystallized 145 MG TAB PO SCH (07:46)
[2019-08-22] MEDS: Potassium Chloride 20 MEQ TAB PO SCH (07:47)
[2019-08-22] MEDS: Aspirin Chewable 81 MG TAB PO SCH (07:47)
[2019-08-22] MEDS: Senokot S 8.6-50 MG TAB PO SCH ×2 (07:47→21:06)
[2019-08-22] MEDS: Pregabalin 75 MG CAP PO SCH ×2 (07:47→21:06)
[2019-08-22] MEDS: Fleet Enema 133 ML BOT PR SCH (08:01)
[2019-08-22] MEDS: metFORMIN 850 MG TAB PO SCH ×2 (08:18→21:06)
[2019-08-22] MEDS: Atorvastatin Calcium 40 MG TAB PO SCH (21:06)
[2019-08-22] MEDS: Insulin Glargine 30 UNITS in Pre-Filled Syringe 1 EACH SC SCH (21:07)
--- NOTE | 2019-08-23 05:57 | PDOC.FM ---
- Subjective Subjective: Patient was laying in bed, finishing her breakfast, at the time of evaluation. She denied any acute overnight events. Patient's mood and affect were mildly depressed/flattened, consistent with previous exam. - Objective Vital Signs & Weight: Vital Signs (12 hours) Temp Pulse Resp BP Pulse Ox 08/22/19 19:36 97.4 F L 63 16 107/72 96 Weight Admit Weight 80.739 kg Weight 84.8 kg I&O: 08/21/19 08/22/19 08/23/19 06:59 06:59 06:59 Intake Total 480 610 720 Output Total 950 Balance 480 -340 720 Result Diagrams: 08/20/19 05:03 08/23/19 05:51 Phys Exam - Physical Examination Constitutional: NAD HEENT: moist MMs, sclera anicteric, oral pharynx no lesions Neck: supple, full ROM Respiratory: no wheezing, no rales, no rhonchi, clear to auscultation bilateral Cardiovascular: RRR, no rub 3/6 systolic murmur, c/w previous exam Gastrointestinal: soft, non-tender, no distention, positive bowel sounds Musculoskeletal: no edema, pulses present Neurological: moves all 4 limbs RUE/RLE weakness, c/w previous exam Psychiatric: A&O x 3 Skin: no rash Dx/Plan (1) LLQ discomfort Code(s): R10.32 - LEFT LOWER QUADRANT PAIN Status: Resolved (2) Physical deconditioning Code(s): R53.81 - OTHER MALAISE Status: Acute (3) Dehydration, mild Code(s): E86.0 - DEHYDRATION Status: Acute (4) Diabetes 1.5, managed as type 2 Code(s): E13.9 - OTHER SPECIFIED DIABETES MELLITUS WITHOUT COMPLICATIONS Status: Chronic (5) Dyslipidemia Code(s): E78.5 - HYPERLIPIDEMIA, UNSPECIFIED Status: Chronic (6) Hypertension Code(s): I10 - ESSENTIAL (PRIMARY) HYPERTENSION Status: Chronic Qualifiers: Hypertension type: essential hypertension Qualified Code(s): I10 - Essential (primary) hypertension - Plan Plan: Patient is a 73 y/o female who presented to the ED for evaluation of physical deconditioning and possible AMS after patient's stated that he was no longer able to care for her at home. # Deconditioning - Senior Placement Advisors: Consulted, recs appreciated - Insurance provider initially denied Inpatient Rehab placement on 08/21 - will initiate [id number] on 08/22 - Patient was denied by [facility] following evaluation in ED 2/ insurance provider - PT/OT: Consulted, recs appreciated # LLQ Pain, resolved - WBCs: 14.5 on admission - down to 10.2 on 08/17 w/ slight bump to 13.0 on 08/18 - possibly Reactive Leukocytosis - Patient afebrile w/ VSS - CT ABD/Pelvis: NAF - Possibly 04/09 to urinary retention / stool retention - Voiding Trial: Passed on 08/19 - Martínez DC'd on 08/20 - Senokot S, Miralax and Fleets Enemas for constipation - s/p "massive" bowel movement on 08/19, per Nursing - Fleets Enemas d/c'd - Patient denies ABD symptoms this AM with benign physical exam # CAD s/p pacemaker - Will continue home medication regimen # Hypothyroid - Continue home medication regimen # HTN - Continue home medication regimen # Vascular Dementia - Patient's stated that patient was altered from baseline on presentation, although reportedly A&Ox3 on initial evaluation - Patient's now notes that patient is "more like herself" - Patient's mood and mental status appear to have improved since initial presentation, w/ A&OX3 on most recent evaluation - See below # Hx of CVA - Right-sided sensory deficits - consistent throughout hospitalization - Patient states that her right-sided deficits are stable - CT Brain: NAF - MRI Brain: Not performed due to patient's cardiac device # DM2 - Continue home medication regimen # CKD Stage II - Will continue to monitor # Systolic Cardiac Murmur - Stable - Will continue to monitor CODE: DNR PCP: IAN Fletcher Diet: HH Activity: Ambulate w/ Assist VTE: SCD's Fluids: SL Dispo: Patient is currently stable and admitted to the Medical Floor for ongoing evaluation of Deconditioning - medically stable at this point in time. Case Management / Senior Placement Advisors consulted, recs appreciated. Will initiate [id number] as per above this AM. Will continue to monitor mental status and prep for DC pending insurance provider authorization. Expected LOS > 48H.
[2019-08-23 06:37] LABS: Anion Gap 13 mmol/L (10-20); BUN (Urea Nitrogen) 21 mg/dL (9.8-20.1); Calc. Creatinine Clearance 74 mL/min (70-130); Calcium 9.1 mg/dL (7.8-10.44); Carbon Dioxide 24 mmol/L (23-31); Chloride 104 mmol/L (98-107); Estimated GFR-MDRD 60; Glucose 79 mg/dL (83-110); Potassium 3.8 mmol/L (3.5-5.1); Sodium 137 mmol/L (136-145)
[2019-08-23] MEDS: Levothyroxine Sodium 25 MCG TAB PO SCH (06:56)
[2019-08-23] MEDS: Losartan 25 MG TAB PO SCH (09:42)
[2019-08-23] MEDS: Polyethylene Glycol 3350 17 GM Packet PO SCH (09:42)
[2019-08-23] MEDS: Venlafaxine HCl XR 75 MG CAP PO SCH ×2 (09:43→21:01)
[2019-08-23] MEDS: Senokot S 8.6-50 MG TAB PO SCH ×2 (09:43→20:59)
[2019-08-23] MEDS: Fenofibrate Nanocrystallized 145 MG TAB PO SCH (09:43)
[2019-08-23] MEDS: Clopidogrel Bisulfate 75 MG TAB PO SCH (09:43)
[2019-08-23] MEDS: Tamsulosin HCl 0.4 MG CAP PO SCH (09:43)
[2019-08-23] MEDS: Aspirin Chewable 81 MG TAB PO SCH (09:43)
[2019-08-23] MEDS: Potassium Chloride 20 MEQ TAB PO SCH (09:44)
[2019-08-23] MEDS: Pregabalin 75 MG CAP PO SCH ×2 (09:45→21:00)
[2019-08-23] MEDS: Amlodipine 5 MG TAB PO SCH (09:45)
[2019-08-23] MEDS: metFORMIN 850 MG TAB PO SCH ×2 (09:46→21:05)
[2019-08-23] MEDS: Insulin Glargine 30 UNITS in Pre-Filled Syringe 1 EACH SC SCH (19:25)
[2019-08-23] MEDS ORDERED: Insulin Glargine 20 UNITS in Pre-Filled Syringe 1 EACH SC SCH (19:45)
[2019-08-23] MEDS: Atorvastatin Calcium 40 MG TAB PO SCH (21:02)
--- NOTE | 2019-08-24 05:20 | PDOC.FM ---
- Subjective Subjective: Patient was resting comfortably in bed at the time of evaluation with her present. Patient denied any acute overnight events. - Objective Vital Signs & Weight: Vital Signs (12 hours) Temp Pulse Resp BP Pulse Ox 08/23/19 20:00 97.9 F 78 16 120/70 92 L Weight Admit Weight 80.739 kg Weight 84.8 kg I&O: 08/22/19 08/23/19 08/24/19 06:59 06:59 06:59 Intake Total 610 720 Output Total 950 Balance -340 720 Result Diagrams: 08/24/19 09:48 08/23/19 05:51 Phys Exam - Physical Examination Constitutional: NAD HEENT: moist MMs, sclera anicteric, oral pharynx no lesions Neck: supple, full ROM Respiratory: no wheezing, no rales, no rhonchi, clear to auscultation bilateral Cardiovascular: RRR, no rub 3/6 systolic murmur with radiation to Carotids - stable Gastrointestinal: soft, non-tender, no distention, positive bowel sounds Musculoskeletal: no edema, pulses present Stable right-sided defecits Deviation from normal: Flattened affect Dx/Plan (1) LLQ discomfort Code(s): R10.32 - LEFT LOWER QUADRANT PAIN Status: Resolved (2) Physical deconditioning Code(s): R53.81 - OTHER MALAISE Status: Acute (3) Dehydration, mild Code(s): E86.0 - DEHYDRATION Status: Acute (4) Diabetes 1.5, managed as type 2 Code(s): E13.9 - OTHER SPECIFIED DIABETES MELLITUS WITHOUT COMPLICATIONS Status: Chronic (5) Dyslipidemia Code(s): E78.5 - HYPERLIPIDEMIA, UNSPECIFIED Status: Chronic (6) Hypertension Code(s): I10 - ESSENTIAL (PRIMARY) HYPERTENSION Status: Chronic Qualifiers: Hypertension type: essential hypertension Qualified Code(s): I10 - Essential (primary) hypertension - Plan Plan: Patient is a 73 y/o female who presented to the ED for evaluation of physical deconditioning and possible AMS after patient's stated that he was no longer able to care for her at home. # Deconditioning - Senior Placement Advisors: Consulted, recs appreciated - Insurance provider initially denied Inpatient Rehab placement on 08/21 - denial confirmed following Ogcw-fu-Uzri on 08/22 - Patient was denied by [facility] following evaluation in ED /2 insurance provider - PT/OT: Consulted, recs appreciated # LLQ Pain, resolved - Patient initially complained of LLQ Pain during initial evaluation - Patient continues to remain afebrile w/ VSS - CT ABD/Pelvis: NAF - Large amount of urine noted in bladder, with large stool burden seen also - Possibly 2/2 to urinary retention / stool retention - Senokot S, Miralax and Fleets Enemas for constipation - s/p "massive" bowel movement on 08/19, per Nursing - Voiding Trial: Passed on 08/19 - Martínez DC'd on 08/20 - Fleets Enemas d/c'd - Patient continues to deny ABD symptoms and difficulty w/ voiding/stooling # CAD s/p pacemaker - Will continue home medication regimen # Hypothyroid - Continue home medication regimen # HTN - Continue home medication regimen # Vascular Dementia - Patient's stated that patient was altered from baseline on presentation, although reportedly A&Ox3 on initial evaluation - Patient's now notes that patient is "more like herself" - Patient's mood and mental status appear to have improved since initial presentation, w/ A&OX3 on most recent evaluation - See below # Hx of CVA - Right-sided sensory deficits - consistent throughout hospitalization - Patient states that her right-sided deficits are stable - CT Brain: NAF - MRI Brain: Not performed due to patient's cardiac device # DM2 - Continue home medication regimen # CKD Stage II - Will continue to monitor # Systolic Cardiac Murmur - Stable - Will continue to monitor CODE: DNR PCP: IAN Fletcher Diet: HH Activity: Ambulate w/ Assist VTE: SCD's Fluids: SL Dispo: Patient is currently admitted to the Medical Floor and awaiting placement - medically stable at this point in time. Case Management / Senior Placement Advisors consulted, recs appreciated. Referrals sent for SNF to [facility], w/ [facility] listed as alternative. Will continue to monitor mental status and prep for DC pending insurance provider authorization. Expected LOS > 48H. Addendum - Attending - Attending Attestation Date/Time: 08/24/19 9285 I personally evaluated the patient and discussed the management with Dr. Forrester I agree with the History, Examination, Assessment and Plan documented above with any addition or exceptions noted below - Patient without complaints. Afebrile VSS. A/P: 1) Deconditioning- awaiting SNF placement. 2) DM- continue current meds, 3) HTN- stable; continue current meds.
[2019-08-24] MEDS: Levothyroxine Sodium 25 MCG TAB PO SCH (06:16)
[2019-08-24] MEDS: Tamsulosin HCl 0.4 MG CAP PO SCH (09:44)
[2019-08-24] MEDS: Potassium Chloride 20 MEQ TAB PO SCH (09:44)
[2019-08-24] MEDS: Polyethylene Glycol 3350 17 GM Packet PO SCH (09:44)
[2019-08-24] MEDS: Amlodipine 5 MG TAB PO SCH (09:45)
[2019-08-24] MEDS: Fenofibrate Nanocrystallized 145 MG TAB PO SCH (09:45)
[2019-08-24] MEDS: Pregabalin 75 MG CAP PO SCH ×2 (09:46→21:08)
[2019-08-24] MEDS: Venlafaxine HCl XR 75 MG CAP PO SCH ×2 (09:47→21:08)
[2019-08-24] MEDS: Senokot S 8.6-50 MG TAB PO SCH ×2 (09:47→21:08)
[2019-08-24] MEDS: Aspirin Chewable 81 MG TAB PO SCH (09:47)
[2019-08-24] MEDS: Clopidogrel Bisulfate 75 MG TAB PO SCH (09:47)
[2019-08-24] MEDS: metFORMIN 850 MG TAB PO SCH ×2 (09:49→21:07)
[2019-08-24] MEDS: Losartan 25 MG TAB PO SCH (09:53)
[2019-08-24 09:57] LABS: #Eosinphils 0.6 thou/uL (0.0-0.7); #Lymphocytes 2.9 thou/uL (1.20-3.40); #Monocytes 0.8 thou/uL (0.11-0.59); #Neutrophils 5.5 thou/uL (1.40-6.50); %Basophils 0.4 % (0.0-1.0); %Eosinophils 5.6 % (0.0-10.0); %Lymphocytes 29.6 % (21.0-51.0); %Monocytes 8.4 % (0.0-10.0); Hemoglobin 10.5 g/dL (12.0-16.0); Mean Corpuscular HGB CONC 33.5 g/dL (32.0-36.0); Mean Corpuscular Hemoglobin 30.2 pg (27.0-31.0); Mean Corpuscular Volume 90.4 fL (78.0-98.0); Mean Platelet Volume 8.1 fL (7.4-10.4); Platelet Count 380 thou/uL (130-400); RBC Distribution Width 14.7 % (11.5-14.5); Red Blood Cell (RBC) Count 3.47 mill/uL (4.20-5.40); White Blood Cell (WBC) Count 9.9 thou/uL (4.8-10.8)
[2019-08-24] MEDS: Acetaminophen 325 MG TAB PO PRN (15:54)
[2019-08-24] MEDS: Insulin Glargine 30 UNITS in Pre-Filled Syringe 1 EACH SC SCH (18:38)
[2019-08-24] MEDS: Atorvastatin Calcium 40 MG TAB PO SCH (21:07)
--- NOTE | 2019-08-25 04:30 | PDOC.FM ---
- Subjective Subjective: Patient was resting comfortably in bed at the time of evaluation. She denied any current pain or acute overnight events. - Objective Vital Signs & Weight: Vital Signs (12 hours) Temp Pulse Resp BP BP Pulse Ox 08/24/19 20:00 97.4 F L 66 16 106/63 94 L 08/24/19 16:29 97.4 F L 67 16 102/68 102/68 94 L Weight Admit Weight 80.739 kg Weight 84.8 kg I&O: 08/23/19 08/24/19 08/25/19 06:59 06:59 06:59 Intake Total 720 840 Balance 720 840 Result Diagrams: 08/24/19 09:48 08/23/19 05:51 Phys Exam - Physical Examination Constitutional: NAD HEENT: moist MMs, sclera anicteric, oral pharynx no lesions Neck: supple, full ROM Respiratory: no wheezing, no rales, no rhonchi, clear to auscultation bilateral Cardiovascular: RRR, no rub 3/6 systolic murmur w/ radiation to Carotid Arteries - stable Gastrointestinal: soft, non-tender, no distention, positive bowel sounds Musculoskeletal: no edema, pulses present Neurological: non-focal Persistent right-sided weakness Skin: no rash Dx/Plan (1) LLQ discomfort Code(s): R10.32 - LEFT LOWER QUADRANT PAIN Status: Resolved (2) Physical deconditioning Code(s): R53.81 - OTHER MALAISE Status: Acute (3) Dehydration, mild Code(s): E86.0 - DEHYDRATION Status: Acute (4) Diabetes 1.5, managed as type 2 Code(s): E13.9 - OTHER SPECIFIED DIABETES MELLITUS WITHOUT COMPLICATIONS Status: Chronic (5) Dyslipidemia Code(s): E78.5 - HYPERLIPIDEMIA, UNSPECIFIED Status: Chronic (6) Hypertension Code(s): I10 - ESSENTIAL (PRIMARY) HYPERTENSION Status: Chronic Qualifiers: Hypertension type: essential hypertension Qualified Code(s): I10 - Essential (primary) hypertension - Plan Plan: Patient is a 73 y/o female who presented to the ED for evaluation of physical deconditioning and possible AMS after patient's stated that he was no longer able to care for her at home. # Deconditioning - Senior Placement Advisors: Consulted, recs appreciated - PT/OT: Consulted, recs appreciated - Patient was initially denied by [facility] following evaluation in ED 04/09 insurance provider - Insurance provider denied Inpatient Rehab placement on 08/21 - denial confirmed following Skqn-[id number] on 08/22 - Choice Letter sent to [facility], awaiting insurance provider authorization # LLQ Pain, resolved - Patient initially complained of LLQ Pain during initial evaluation - Patient continues to remain afebrile w/ VSS - CT ABD/Pelvis: NAF - Large amount of urine noted in bladder, with large stool burden seen also - Possibly 04/09 to urinary retention / stool retention - Senokot S, Miralax and Fleets Enemas for constipation - s/p "massive" bowel movement on 08/19, per Nursing - Voiding Trial: Passed on 08/19 - Martínez DC'd on 08/20 - Fleets Enemas d/c'd - Patient continues to deny ABD symptoms or difficulty w/ voiding/stooling # CAD s/p pacemaker - Will continue home medication regimen # Hypothyroid - Continue home medication regimen # HTN - Continue home medication regimen # Vascular Dementia - Patient's stated that patient was altered from baseline on presentation, although reportedly A&Ox3 on initial evaluation - Patient's now notes that patient is "more like herself" - Patient's mood and mental status appear to have improved since initial presentation, w/ A&OX3 on most recent evaluation - See below # Hx of CVA - Right-sided sensory deficits - consistent throughout hospitalization - Patient states that her right-sided deficits are stable - CT Brain: NAF - MRI Brain: Not performed due to patient's cardiac device # DM2 - Glucose measurements have been at acceptable range since admission - Continue home medication regimen - Hypoglycemia Protocol # CKD Stage II - CR; 0.92 on 08/22 - Will continue to monitor # Systolic Cardiac Murmur - Stable - Will continue to monitor CODE: DNR PCP: IAN Fletcher Diet: HH Activity: Ambulate w/ Assist VTE: SCD's Fluids: SL Dispo: Patient is currently admitted to the Medical Floor and awaiting placement - continues to remain medically stable at this point in time. Case Management / Senior Placement Advisors consulted, recs appreciated. Referrals sent for SNF to [facility], w/ [facility] listed as alternative. Will continue to monitor mental status, vital signs and prep for DC pending insurance provider authorization. Expected LOS > 48H. Addendum - Attending - Attending Attestation Date/Time: 08/25/191928 I personally evaluated the patient and discussed the management with Dr. Forrester I agree with the History, Examination, Assessment and Plan documented above with any addition or exceptions noted below- Patient without compalints. Afebrile VSS. A/P: 1) Deconditioining- awaiting insurance approval for SNF placement. Continue PT. 2) DM- stable. .
[2019-08-25] MEDS: Levothyroxine Sodium 25 MCG TAB PO SCH (05:44)
[2019-08-25] MEDS: Polyethylene Glycol 3350 17 GM Packet PO SCH (09:05)
[2019-08-25] MEDS: Venlafaxine HCl XR 75 MG CAP PO SCH ×2 (09:07→20:38)
[2019-08-25] MEDS: metFORMIN 850 MG TAB PO SCH ×2 (09:10→20:38)
[2019-08-25] MEDS: Fenofibrate Nanocrystallized 145 MG TAB PO SCH (09:10)
[2019-08-25] MEDS: Clopidogrel Bisulfate 75 MG TAB PO SCH (09:11)
[2019-08-25] MEDS: Aspirin Chewable 81 MG TAB PO SCH (09:11)
[2019-08-25] MEDS: Pregabalin 75 MG CAP PO SCH ×2 (09:12→20:37)
[2019-08-25] MEDS: Amlodipine 5 MG TAB PO SCH (09:12)
[2019-08-25] MEDS: Losartan 25 MG TAB PO SCH (09:15)
[2019-08-25] MEDS: Tamsulosin HCl 0.4 MG CAP PO SCH (09:16)
[2019-08-25] MEDS: Senokot S 8.6-50 MG TAB PO SCH ×2 (09:16→20:38)
[2019-08-25] MEDS: Potassium Chloride 20 MEQ TAB PO SCH (13:34)
[2019-08-25] MEDS: Insulin Glargine 30 UNITS in Pre-Filled Syringe 1 EACH SC SCH ×2 (17:18→18:30)
[2019-08-25] MEDS: HumaLOG 300 UNITS/3 ML VIAL SC PRN (17:18)
[2019-08-25] MEDS: Atorvastatin Calcium 40 MG TAB PO SCH (20:38)
[2019-08-26] MEDS: Levothyroxine Sodium 25 MCG TAB PO SCH (05:28)
[2019-08-26] MEDS: metFORMIN 850 MG TAB PO SCH ×2 (09:41→21:01)
[2019-08-26] MEDS: Tamsulosin HCl 0.4 MG CAP PO SCH (09:41)
[2019-08-26] MEDS: Aspirin Chewable 81 MG TAB PO SCH (09:41)
[2019-08-26] MEDS: Clopidogrel Bisulfate 75 MG TAB PO SCH (09:41)
[2019-08-26] MEDS: Venlafaxine HCl XR 75 MG CAP PO SCH ×2 (09:41→21:00)
[2019-08-26] MEDS: Fenofibrate Nanocrystallized 145 MG TAB PO SCH (09:41)
[2019-08-26] MEDS: Polyethylene Glycol 3350 17 GM Packet PO SCH (09:59)
[2019-08-26] MEDS: Senokot S 8.6-50 MG TAB PO SCH ×2 (10:00→21:01)
[2019-08-26] MEDS: Pregabalin 75 MG CAP PO SCH ×2 (10:49→21:01)
--- NOTE | 2019-08-26 10:56 | EKG ---
Test Reason : Blood Pressure : / mmHG Vent. Rate : 084 BPM Atrial Rate : 084 BPM P-R Int : 190 ms QRS Dur : 086 ms QT Int : 382 ms P-R-T Axes : 055 011 037 degrees QTc Int : 451 ms Atrial-paced rhythm Abnormal ECG Confirmed by ZENA BACON DO ([id number]), multimedia editor BENITO IGNACIO ([id number]) on 08/26/2019 10:56:13 AM Referred By: Confirmed By:ZENA BACON DO
[2019-08-26] MEDS: HumaLOG 300 UNITS/3 ML VIAL SC PRN (11:48)
[2019-08-26] MEDS: Amlodipine 5 MG TAB PO SCH (11:58)
[2019-08-26] MEDS: Losartan 25 MG TAB PO SCH (11:59)
--- NOTE | 2019-08-26 14:05 | PDOC.FM ---
- Subjective Subjective: Patient is doing well this morning. Ate breakfast this morning, worked with PT yesterday. She is ready for d/c pending SNF placement. She denies CP, SOB, constipation, dysuria. - Objective MAR Reviewed: Yes Vital Signs & Weight: Vital Signs (12 hours) Temp Pulse Resp BP Pulse Ox 08/26/19 07:48 98.0 F 63 18 113/72 96 Weight Admit Weight 80.739 kg Weight 84.8 kg I&O: 08/25/19 08/26/19 08/27/19 06:59 06:59 06:59 Intake Total 840 240 Balance 840 240 Result Diagrams: 08/24/19 09:48 08/23/19 05:51 Phys Exam - Physical Examination Constitutional: NAD HEENT: PERRLA, moist MMs, sclera anicteric Respiratory: no wheezing, no rales, clear to auscultation bilateral Cardiovascular: RRR, no significant murmur Gastrointestinal: soft, non-tender, no distention, positive bowel sounds Musculoskeletal: no edema, pulses present Neurological: normal sensation, moves all 4 limbs Lymphatic: no nodes Psychiatric: normal affect Dx/Plan (1) Physical deconditioning Code(s): R53.81 - OTHER MALAISE Status: Acute (2) Diabetes 1.5, managed as type 2 Code(s): E13.9 - OTHER SPECIFIED DIABETES MELLITUS WITHOUT COMPLICATIONS Status: Chronic (3) Hypertension Code(s): I10 - ESSENTIAL (PRIMARY) HYPERTENSION Status: Chronic Qualifiers: Hypertension type: essential hypertension Qualified Code(s): I10 - Essential (primary) hypertension (4) CVA (cerebral vascular accident) Code(s): I63.9 - CEREBRAL INFARCTION, UNSPECIFIED Status: Chronic Qualifiers: CVA mechanism: thrombosis Precerebral and cerebral artery: unspecified cerebral artery Qualified Code(s): I63.30 - Cerebral infarction due to thrombosis of unspecified cerebral artery - Plan Plan: Deconditioning - Senior Placement Advisors: Consulted, recs appreciated - PT/OT: Consulted, recs appreciated - Patient was initially denied by [facility] following evaluation in ED 04/09 insurance provider - Insurance provider denied Inpatient Rehab placement on 08/21 - denial confirmed following [id number] on 08/22 - Choice Letter sent to [facility], awaiting insurance provider authorization # CAD s/p pacemaker - Will continue home medication regimen # Hypothyroid - Continue home medication regimen # HTN - Continue home medication regimen # Vascular Dementia - Patient's stated that patient was altered from baseline on presentation, although reportedly A&Ox3 on initial evaluation - Patient's now notes that patient is "more like herself" - Patient's mood and mental status appear to have improved since initial presentation, w/ A&OX3 on most recent evaluation - See below # Hx of CVA - Right-sided sensory deficits - consistent throughout hospitalization - Patient states that her right-sided deficits are stable - CT Brain: NAF - MRI Brain: Not performed due to patient's cardiac device # DM2 - Glucose measurements have been at acceptable range since admission - Continue home medication regimen - Hypoglycemia Protocol # CKD Stage II - CR; 0.92 on 08/22 - Will continue to monitor # Systolic Cardiac Murmur - Stable - Will continue to monitor CODE: DNR PCP: IAN Fletcher Diet: HH Activity: Ambulate w/ Assist VTE: SCD's Dispo: stable, ready for d/c pending placement Addendum - Attending - Attending Attestation Date/Time: 08/26/19 [id number] I personally evaluated the patient and discussed the management with Dr. Bernard I agree with the History, Examination, Assessment and Plan documented above with any addition or exceptions noted below - Patient without complaints. Comfortable watching TV. Afebrile VSS. A/P: 1) Deconditioning - awaiting placement at [facility].
[2019-08-26] MEDS: Insulin Glargine 30 UNITS in Pre-Filled Syringe 1 EACH SC SCH (17:39)
[2019-08-26] MEDS: Atorvastatin Calcium 40 MG TAB PO SCH (21:01)
[2019-08-27] MEDS: Levothyroxine Sodium 25 MCG TAB PO SCH (05:22)
--- NOTE | 2019-08-27 07:36 | PDOC.FM ---
- Subjective Subjective: Pt is doing well, denies pain, SOB, n/v/d/c. No acute events overnight. - Objective MAR Reviewed: Yes Vital Signs & Weight: Vital Signs (12 hours) Temp Pulse Resp BP Pulse Ox 08/27/19 07:20 97.6 F 78 16 134/82 95 08/27/19 00:23 97.6 F 67 17 119/71 96 08/26/19 19:53 97.7 F 66 66 H 96/62 94 L Weight Admit Weight 80.739 kg Weight 84.8 kg I&O: 08/26/19 08/27/19 08/28/19 06:59 06:59 06:59 Intake Total 240 Balance 240 Result Diagrams: 08/24/19 09:48 08/23/19 05:51 Phys Exam - Physical Examination Constitutional: NAD HEENT: moist MMs Respiratory: no wheezing, no rales, clear to auscultation bilateral Cardiovascular: RRR Gastrointestinal: soft, non-tender, positive bowel sounds Musculoskeletal: no edema, pulses present Neurological: moves all 4 limbs Deviation from normal: AOx1 Dx/Plan (1) Physical deconditioning Code(s): R53.81 - OTHER MALAISE Status: Acute (2) Diabetes 1.5, managed as type 2 Code(s): E13.9 - OTHER SPECIFIED DIABETES MELLITUS WITHOUT COMPLICATIONS Status: Chronic (3) Hypertension Code(s): I10 - ESSENTIAL (PRIMARY) HYPERTENSION Status: Chronic Qualifiers: Hypertension type: essential hypertension Qualified Code(s): I10 - Essential (primary) hypertension (4) CVA (cerebral vascular accident) Code(s): I63.9 - CEREBRAL INFARCTION, UNSPECIFIED Status: Chronic Qualifiers: CVA mechanism: thrombosis Precerebral and cerebral artery: unspecified cerebral artery Qualified Code(s): I63.30 - Cerebral infarction due to thrombosis of unspecified cerebral artery - Plan Plan: Deconditioning - Senior Placement Advisors: Consulted, recs appreciated - PT/OT: Consulted, recs appreciated - Patient was initially denied by [facility] following evaluation in ED 04/09 insurance provider - Insurance provider denied Inpatient Rehab placement on 08/21 - denial confirmed following [id number] on 08/22 - Choice Letter sent to [facility], awaiting insurance provider authorization # CAD s/p pacemaker - Will continue home medication regimen # Hypothyroid - Continue home medication regimen # HTN - Continue home medication regimen # Vascular Dementia - Patient's stated that patient was altered from baseline on presentation, although reportedly A&Ox3 on initial evaluation - Patient's now notes that patient is "more like herself" - Patient's mood and mental status appear to have improved since initial presentation, w/ A&OX3 on most recent evaluation - See below # Hx of CVA - Right-sided sensory deficits - consistent throughout hospitalization - Patient states that her right-sided deficits are stable - CT Brain: NAF - MRI Brain: Not performed due to patient's cardiac device # DM2 - Glucose measurements have been at acceptable range since admission - Continue home medication regimen - Hypoglycemia Protocol # CKD Stage II - CR; 0.92 on 08/22 - Will continue to monitor # Systolic Cardiac Murmur - Stable - Will continue to monitor CODE: DNR PCP: IAN Fletcher Diet: HH Activity: Ambulate w/ Assist VTE: SCD's Dispo: stable, ready for d/c pending placement Addendum - Attending - Attending Attestation Date/Time: 08/27/19 1250 I personally evaluated the patient and discussed the management with Dr. [] I agree with the History, Examination, Assessment and Plan documented above with any addition or exceptions noted below.
[2019-08-27] MEDS: metFORMIN 850 MG TAB PO SCH ×2 (08:59→21:48)
[2019-08-27] MEDS: Fenofibrate Nanocrystallized 145 MG TAB PO SCH (09:00)
[2019-08-27] MEDS: Venlafaxine HCl XR 75 MG CAP PO SCH ×2 (09:00→21:48)
[2019-08-27] MEDS: Tamsulosin HCl 0.4 MG CAP PO SCH (09:00)
[2019-08-27] MEDS: Amlodipine 5 MG TAB PO SCH (09:00)
[2019-08-27] MEDS: Clopidogrel Bisulfate 75 MG TAB PO SCH (09:00)
[2019-08-27] MEDS: Aspirin Chewable 81 MG TAB PO SCH (09:00)
[2019-08-27] MEDS: Pregabalin 75 MG CAP PO SCH ×2 (09:00→21:48)
[2019-08-27] MEDS: Losartan 25 MG TAB PO SCH (09:01)
[2019-08-27] MEDS: Polyethylene Glycol 3350 17 GM Packet PO SCH (09:19)
[2019-08-27] MEDS: Senokot S 8.6-50 MG TAB PO SCH ×2 (09:20→21:48)
[2019-08-27] MEDS: Insulin Glargine 30 UNITS in Pre-Filled Syringe 1 EACH SC SCH (18:47)
[2019-08-27] MEDS: Atorvastatin Calcium 40 MG TAB PO SCH (21:48)
[2019-08-28] MEDS: Levothyroxine Sodium 25 MCG TAB PO SCH (04:59)
--- NOTE | 2019-08-28 06:35 | PDOC.FM ---
- Subjective Subjective: Doing well this morning. She states she feels the same as yesterday, no concerns. - Objective MAR Reviewed: Yes Vital Signs & Weight: Vital Signs (12 hours) Temp Pulse Resp BP Pulse Ox 08/27/19 19:32 97.8 F 61 17 96/60 97 Weight Admit Weight 80.739 kg Weight 84.8 kg I&O: 08/26/19 08/27/19 08/28/19 06:59 06:59 06:59 Intake Total 240 480 Balance 240 480 Result Diagrams: 08/24/19 09:48 08/23/19 05:51 Phys Exam - Physical Examination Constitutional: NAD HEENT: PERRLA, moist MMs Neck: supple Respiratory: no wheezing, no rales, no rhonchi, clear to auscultation bilateral Cardiovascular: RRR, no rub Gastrointestinal: soft, non-tender Musculoskeletal: no edema, pulses present atrophied Neurological: non-focal Psychiatric: normal affect Dx/Plan (1) Type II diabetes mellitus Status: Acute (2) Physical deconditioning Code(s): R53.81 - OTHER MALAISE Status: Acute (3) Dehydration, mild Code(s): E86.0 - DEHYDRATION Status: Acute (4) Dysphagia Code(s): R13.10 - DYSPHAGIA, UNSPECIFIED Status: Acute (5) CVA (cerebral vascular accident) Code(s): I63.9 - CEREBRAL INFARCTION, UNSPECIFIED Status: Chronic Qualifiers: CVA mechanism: thrombosis Precerebral and cerebral artery: unspecified cerebral artery Qualified Code(s): I63.30 - Cerebral infarction due to thrombosis of unspecified cerebral artery (6) Dyslipidemia Code(s): E78.5 - HYPERLIPIDEMIA, UNSPECIFIED Status: Chronic (7) Hyperhomocystinemia Code(s): E72.11 - HOMOCYSTINURIA Status: Chronic (8) Hypertension Code(s): I10 - ESSENTIAL (PRIMARY) HYPERTENSION Status: Chronic Qualifiers: Hypertension type: essential hypertension Qualified Code(s): I10 - Essential (primary) hypertension - Plan Plan: Deconditioning - Senior Placement Advisors: Consulted, recs appreciated - PT/OT: Consulted, recs appreciated - Patient was initially denied by [facility] following evaluation in ED 04/09 insurance provider - Insurance provider denied Inpatient Rehab placement on 08/21 - denial confirmed following [id number] on 08/22 - Choice Letter sent to [facility], awaiting insurance provider authorization CAD s/p pacemaker - Will continue home medication regimen Hypothyroid - Continue home medication regimen HTN - Continue home medication regimen Vascular Dementia - Patient's mood and mental status appear to have improved since initial presentation, w/ A&OX3 on most recent evaluation - See below Hx of CVA - Right-sided sensory deficits - consistent throughout hospitalization - Patient states that her right-sided deficits are stable - CT Brain: NAF - MRI Brain: Not performed due to patient's cardiac device DM2 - Glucose measurements have been at acceptable range since admission - Continue home medication regimen - Hypoglycemia Protocol CKD Stage II - stable - CR; 0.92 on 08/22 - Will continue to monitor Systolic Cardiac Murmur - Stable - Will continue to monitor CODE: DNR PCP: IAN Fletcher Diet: Activity: Ambulate w/ Assist VTE: SCD's Dispo: stable, ready for d/c pending placement
[2019-08-28] MEDS: Clopidogrel Bisulfate 75 MG TAB PO SCH (09:57)
[2019-08-28] MEDS: Aspirin Chewable 81 MG TAB PO SCH (09:57)
[2019-08-28] MEDS: Senokot S 8.6-50 MG TAB PO SCH ×2 (09:57→20:34)
[2019-08-28] MEDS: Fenofibrate Nanocrystallized 145 MG TAB PO SCH (09:58)
[2019-08-28] MEDS: metFORMIN 850 MG TAB PO SCH ×2 (09:58→20:36)
[2019-08-28] MEDS: Tamsulosin HCl 0.4 MG CAP PO SCH (09:59)
[2019-08-28] MEDS: Venlafaxine HCl XR 75 MG CAP PO SCH ×2 (09:59→20:36)
[2019-08-28] MEDS: Polyethylene Glycol 3350 17 GM Packet PO SCH (10:01)
[2019-08-28] MEDS: Losartan 25 MG TAB PO SCH (10:02)
[2019-08-28] MEDS: Amlodipine 5 MG TAB PO SCH (10:02)
[2019-08-28] MEDS: Pregabalin 75 MG CAP PO SCH ×2 (10:03→20:34)
--- NOTE | 2019-08-28 12:18 | PRG ---
DATE OF SERVICE: 08/28/2019 Ms. Crowell is a pleasant, but unfortunate 73-year-old female patient with a history of CVA. She also has type 2 diabetes and presented mildly dehydrated with some physical deconditioning. We are currently awaiting SNF placement as she is clinically much improved. Job ID: [id number]
[2019-08-28] MEDS: Insulin Glargine 30 UNITS in Pre-Filled Syringe 1 EACH SC SCH (19:00)
[2019-08-28] MEDS: Atorvastatin Calcium 40 MG TAB PO SCH (20:36)
[2019-08-29] MEDS: Levothyroxine Sodium 25 MCG TAB PO SCH (05:44)
[2019-08-29 07:38] VITALS: TEMP 97.5
--- NOTE | 2019-08-29 08:16 | PDOC.FM ---
- Subjective Subjective: Doing well this morning. No concerns or complaints. - Objective MAR Reviewed: Yes Vital Signs & Weight: Vital Signs (12 hours) Temp Pulse Resp BP Pulse Ox 08/29/19 07:35 97.5 F L 64 18 120/78 95 08/29/19 04:00 97.4 F L 71 16 122/72 96 08/29/19 00:00 97.4 F L 65 16 105/67 97 Weight Admit Weight 80.739 kg Weight 84.8 kg I&O: 08/28/19 08/29/19 08/30/19 06:59 06:59 06:59 Intake Total 480 Balance 480 Result Diagrams: 08/24/19 09:48 08/23/19 05:51 Phys Exam - Physical Examination Constitutional: NAD HEENT: moist MMs Neck: supple, full ROM Respiratory: no wheezing, no rales, no rhonchi, clear to auscultation bilateral Cardiovascular: RRR, no significant murmur Gastrointestinal: soft, non-tender Neurological: non-focal Psychiatric: normal affect, A&O x 3 Skin: normal turgor Dx/Plan (1) Type II diabetes mellitus Status: Acute (2) Physical deconditioning Code(s): R53.81 - OTHER MALAISE Status: Acute (3) Dehydration, mild Code(s): E86.0 - DEHYDRATION Status: Acute (4) Dysphagia Code(s): R13.10 - DYSPHAGIA, UNSPECIFIED Status: Acute (5) CVA (cerebral vascular accident) Code(s): I63.9 - CEREBRAL INFARCTION, UNSPECIFIED Status: Chronic Qualifiers: CVA mechanism: thrombosis Precerebral and cerebral artery: unspecified cerebral artery Qualified Code(s): I63.30 - Cerebral infarction due to thrombosis of unspecified cerebral artery (6) Dyslipidemia Code(s): E78.5 - HYPERLIPIDEMIA, UNSPECIFIED Status: Chronic (7) Hyperhomocystinemia Code(s): E72.11 - HOMOCYSTINURIA Status: Chronic (8) Hypertension Code(s): I10 - ESSENTIAL (PRIMARY) HYPERTENSION Status: Chronic Qualifiers: Hypertension type: essential hypertension Qualified Code(s): I10 - Essential (primary) hypertension - Plan Plan: Deconditioning - Senior Placement Advisors: Consulted, recs appreciated - PT/OT: Consulted, recs appreciated - Approved at [facility]. Plan to d/c today. CAD s/p pacemaker - Will continue home medication regimen Hypothyroid - Continue home medication regimen HTN - Continue home medication regimen Vascular Dementia - Patient's mood and mental status appear to have improved since initial presentation, w/ A&OX3 on most recent evaluation - See below Hx of CVA - Right-sided sensory deficits - consistent throughout hospitalization - Patient states that her right-sided deficits are stable - CT Brain: NAF - MRI Brain: Not performed due to patient's cardiac device DM2 - Glucose measurements have been at acceptable range since admission - Continue home medication regimen - Hypoglycemia Protocol CKD Stage II - stable Systolic Cardiac Murmur - Stable - Will continue to monitor CODE: DNR PCP: IAN Fletcher Diet: HH Activity: Ambulate w/ Assist VTE: SCD's Dispo: stable, ready for d/c pending placement Addendum - Attending - Attending Attestation Date/Time: 08/29/19 9891 I personally evaluated the patient and discussed the management with Dr. Morrow. I agree with the History, Examination, Assessment and Plan documented above with any addition or exceptions noted below. Patient stable for discharge to [facility] for SNF.
[2019-08-29] MEDS: Pregabalin 75 MG CAP PO SCH (08:28)
[2019-08-29] MEDS: Tamsulosin HCl 0.4 MG CAP PO SCH (08:28)
[2019-08-29] MEDS: Polyethylene Glycol 3350 17 GM Packet PO SCH (08:30)
[2019-08-29] MEDS: Senokot S 8.6-50 MG TAB PO SCH (08:32)
[2019-08-29] MEDS: Aspirin Chewable 81 MG TAB PO SCH (08:32)
[2019-08-29] MEDS: Venlafaxine HCl XR 75 MG CAP PO SCH (08:32)
[2019-08-29] MEDS: Clopidogrel Bisulfate 75 MG TAB PO SCH (08:32)
[2019-08-29] MEDS: Fenofibrate Nanocrystallized 145 MG TAB PO SCH (08:32)
[2019-08-29] MEDS: Amlodipine 5 MG TAB PO SCH (08:33)
[2019-08-29] MEDS: Losartan 25 MG TAB PO SCH (08:34)
[2019-08-29] MEDS: metFORMIN 850 MG TAB PO SCH (08:40)
[2019-08-29 11:05] VITALS: BP 108/66
--- NOTE | 2019-08-30 13:42 | DIS ---
DATE OF ADMISSION: 08/17/2019 DATE OF DISCHARGE: 08/29/2019 RESIDENT: Rebeca Morrow MD ADMITTING ATTENDING: Arley Sutton MD DISCHARGE ATTENDING: Arley Sutton MD CONSULT: None. PROCEDURES PERFORMED: Martínez catheter, enemas. PRIMARY DIAGNOSIS: Deconditioning. SECONDARY DIAGNOSES: Left lower quadrant pain, coronary artery disease, hypothyroidism, hypertension, vascular dementia, diabetes, chronic kidney disease, and systolic cardiac murmur. DISCHARGE MEDICATIONS: 1. Albuterol. 2. Aspirin. 3. Atorvastatin 40 mg nightly. 4. Fenofibrate 145 mg daily. 5. Insulin sliding scale. 6. Levemir 30 units subcu nightly. 7. Synthroid 25 mcg daily. 8. Losartan 100 mg daily. 9. Metformin 850 b.i.d. 10. Metoprolol 50 daily. 11. Lyrica 75 b.i.d. 12. Venlafaxine 75 mg b.i.d. 13. Amlodipine 10 mg daily. 14. Plavix 75 mg daily. DISCONTINUED MEDICATIONS: None. HISTORY OF PRESENT ILLNESS/HOSPITAL COURSE: Ms. Crowell is a 73-year-old female with past medical history of hypothyroidism, diabetes, hyperlipidemia, vascular dementia, hypertension, coronary artery disease, chronic kidney disease, history of cardiac murmur, who presented for increasing weakness all over for the past several days. 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 Upon admission, a rehab consult was placed and she was subsequently denied inpatient rehab. Case Management was done [place] a [place] [facility] [place] versus group home to be discharged to. Insurance approval took several days which lengthened her hospital stay significantly. She was finally able to be discharged [place] the [place] a [place] [facility] [place] for continued physical and occupational therapy. DISPOSITION: Stable. DISCHARGE INSTRUCTIONS: 1. Location: [facility]. 2. Diet: Heart healthy, diabetic. 3. Activity: Ad tony. 4. Followup: Follow up with primary care physician once discharged. Job ID: [id number] MTDD
== END 2019-08-29 12:31 ==
LOC: ERS 08:30 → T4-B 12:17
PROVIDERS: ADMIT Student in an Organized Health Care Education/Training Program; ATTEND Student in an Organized Health Care Education/Training Program
DX: R53.81 Other malaise (principal); R10.32 Left lower quadrant pain; I12.9 Hypertensive chronic kidney disease with stage 1 through stage 4 chronic kidney disease, or unspecified chronic kidney disease; E11.22 Type 2 diabetes mellitus with diabetic chronic kidney disease; N18.2 Chronic kidney disease, stage 2 (mild); E03.9 Hypothyroidism, unspecified; E78.5 Hyperlipidemia, unspecified; F01.50 Vascular dementia, unspecified severity, without behavioral disturbance, psychotic disturbance, mood disturbance, and anxiety; I25.10 Atherosclerotic heart disease of native coronary artery without angina pectoris; Z79.4 Long term (current) use of insulin; Z79.82 Long term (current) use of aspirin; Z79.899 Other long term (current) drug therapy; Z86.73 Personal history of transient ischemic attack (TIA), and cerebral infarction without residual deficits; Z88.5 Allergy status to narcotic agent; Z91.041 Radiographic dye allergy status
CPT/HCPCS: 36415; 36416; 51701; 51702; 51798; 70450; 71045; 74177; 80048; 80053; 81001; 81003; 84484; 85007; 85025; 85027; 87086; 93005; 96361; 96365; G0378; J0696; J1815; J3490; J7512; Q0162; Q0163; Q9967

== ENCOUNTER 2019-09-10 13:36 | Inpatient (IN) | payer MEDICARE ==
[~2019-09-10 13:36] MED LIST: Iopamidol-370 76% 500 ML 1 ML ONE
[2019-09-10] MEDS ORDERED: diphenhydrAMINE 50 MG/ML VIAL ONE (13:53)
[2019-09-10] MEDS ORDERED: Famotidine/PF 20 mg/2ml Vial ONE (13:53)
[2019-09-10] MEDS ORDERED: methylPREDNISolone Sod Succ/PF 125 MG/2 ML VIAL ONE (13:53)
[2019-09-10] MEDS ORDERED: Hydrocortisone Sod Succ/PF 100 mg/2 ml Vial ONE (13:54)
[2019-09-10 14:10] LABS: #Basophils 0.1 thou/uL (0.0-0.2); #Eosinphils 0.2 thou/uL (0.0-0.7); #Monocytes 0.6 thou/uL (0.11-0.59); #Neutrophils 4.8 thou/uL (1.40-6.50); %Basophils 0.6 % (0.0-1.0); %Eosinophils 2.2 % (0.0-10.0); %Lymphocytes 34.5 % (21.0-51.0); %Monocytes 7.1 % (0.0-10.0); %Neutrophils 55.6 % (42.0-75.0); Hemoglobin 11.4 g/dL (12.0-16.0); Mean Corpuscular HGB CONC 33.1 g/dL (32.0-36.0); Mean Corpuscular Hemoglobin 29.4 pg (27.0-31.0); Mean Corpuscular Volume 88.8 fL (78.0-98.0); Mean Platelet Volume 9.4 fL (7.4-10.4); Platelet Count 280 thou/uL (130-400); RBC Distribution Width 13.8 % (11.5-14.5); Red Blood Cell (RBC) Count 3.89 mill/uL (4.20-5.40); White Blood Cell (WBC) Count 8.6 thou/uL (4.8-10.8)
[2019-09-10 14:16] LABS: INR-International Normal Ratio 1.1; PTT 27.9 sec (22.9-36.1); Prothrombin Time 14.3 sec (12.0-14.7)
[2019-09-10 14:36] LABS: ALT (SGPT) 22 U/L (8-55); AST (SGOT) 34 U/L (5-34); Albumin 3.9 g/dL (3.4-4.8); Alkaline Phosphatase 37 U/L (40-110); Anion Gap 15 mmol/L (10-20); BUN (Urea Nitrogen) 34 mg/dL (9.8-20.1); Bilirubin, Total 0.4 mg/dL (0.2-1.2); CK (CPK) 36 U/L (29-168); Calc. Creatinine Clearance 0 mL/min (70-130); Calcium 9.6 mg/dL (7.8-10.44); Carbon Dioxide 21 mmol/L (23-31); Chloride 106 mmol/L (98-107); Estimated GFR-MDRD 37; Globulin 3.2 g/dL (2.4-3.5); Glucose 99 mg/dL (83-110); Potassium 4.7 mmol/L (3.5-5.1); Protein, Total 7.1 g/dL (6.0-8.3); Sodium 137 mmol/L (136-145)
[2019-09-10] MEDS ORDERED: Aspirin Chewable 81 MG TAB ONE (14:39)
[2019-09-10 14:51] LABS: CKMB 1.5 ng/mL (0-6.6)
--- NOTE | 2019-09-10 15:26 | CT ---
CT BRAIN: Date: 09-10-2019 Provided Clinical History: Right sided facial droop and weakness. Comparison: 08-17-2019 FINDINGS: The ventricular system appears normal in size and morphology. There is no evidence for intracranial h emorrhage or mass effect. The extracranial soft tissues and osseous structures demonstrate no acute f indings. IMPRESSION: No evidence for intracranial hemorrhage or mass effect. Findings communicated to Dr. Wesley 1:49 p.m. 09-10-2019. POS: [facility]
--- NOTE | 2019-09-10 15:31 | RAD ---
PORTABLE CHEST: Date: 09-10-2019 Provided Clinical History: Right sided weakness Comparison: 08-17-2019 FINDINGS: Cardiac silhouette appears prominent. Left subclavian cardiac pacing device is noted in similar posit ion. No focal consolidation, pleural fluid, or pneumothorax apparent. IMPRESSION: No evidence for an acute cardiopulmonary process. POS: [facility]
--- NOTE | 2019-09-10 15:43 | CT ---
CT ANGIOGRAM GREAT VESSELS NECK WITH IV CONTRAST AND 3D MIP RECONSTRUCTIONS CT ANGIOGRAM BRAIN WITH IV CONTRAST AND 3D MIP RECONSTRUCTIONS: Provided Clinical History: Right sided facial droop and right sided weakness. FINDINGS: There is a common origin of the innominate and left common carotid arteries. There is moderate athero sclerotic vascular calcification at the left common carotid artery origin without evidence for high g rade stenosis. There is moderate atherosclerotic vascular calcification involving the left proximal i nternal carotid artery/carotid bulb region, without high grade stenosis. There is minimal calcificati ons seen involving the right carotid bulb without evidence for significant stenosis. The right verteb ral artery is diminutive and left vertebral artery is dominant. There is multifocal atherosclerotic i rregularity of the diminutive right vertebral artery with poor opacification/non-opacification involv ing its distal most intracranial segment. The intracranial circulation is suboptimally evaluated on t he basis of contrast bolus timing issues related to patient motion after contrast injection. There is conspicuous atherosclerotic vascular calcification involving the cavernous portion of both internal carotid arteries. There is no evidence for high grade focal vessel stenosis or branch occlusion invol ving the proximal anterior cerebral, middle cerebral, or posterior cerebral arteries. IMPRESSION: 1. Limited study due to bolus timing issues as discussed above. 2. Moderate atherosclerotic vascular disease without evidence for high grade internal carotid artery stenosis. 3. No evidence for proximal LORENA/MCA/BLOCK SETTER GYPSUM high grade stenosis or occlusion. Findings communicated to Dr. Wesley 3:08 p.m. 09-10-2019. Code CR POS: [facility]
--- NOTE | 2019-09-10 15:49 | PDOC.FPRHP ---
- History of Present Illness History of Present Illness: This is a 73yo F with PMH significant for hypothyroidism, DM I, HLD, vascular dementia, HTN, CAD s/p pacemaker, CKD II, and CVA with right sided deficits who presents to the ER from [facility] for feeling fatigue, clamy, low BP and worsening right sided facial droop. She has had 3 CVAs that have all affected her right side. Went to see Dr. Shell and stated that her pacemaker was doing well. He scheduled her a stress test a few weeks from now. Yesterday, saw her through the window and was able to interact like normal. - Allergies/Adverse Reactions Allergies Allergy/AdvReac Type Severity Reaction Status Date / Time Iodine and Iodide Containing Allergy Verified 05/25/19 13:33 Produc meperidine HCl [From Demerol] Allergy Verified 05/25/19 13:33 propoxyphene HCl Allergy Verified 05/25/19 13:33 [From Darvon] - Home Medications Medication Instructions Recorded Confirmed Type Fenofibrate Nanocrystallized 145 mg PO DAILY 12/03/14 08/17/19 History [Tricor] Losartan Potassium [Cozaar] 100 mg PO DAILY 12/03/14 08/17/19 History Metoprolol Succinate 50 mg PO DAILY 12/03/14 08/17/19 History Pregabalin [Lyrica] 75 mg PO BID 12/03/14 08/17/19 History Venlafaxine HCl [Effexor XR] 75 mg PO BID 12/03/14 08/17/19 History Amlodipine [Norvasc] 10 mg PO DAILY #0 tab 12/18/14 08/17/19 Rx Clopidogrel Bisulfate [Plavix] 75 mg PO DAILY #0 tab 12/18/14 08/17/19 Rx Albuterol Sulfate [Proair HFA] 1 puff INH Q4HR PRN 08/17/19 08/17/19 History Aspirin 81 mg PO DAILY 08/17/19 08/17/19 History Atorvastatin Calcium [Lipitor] 40 mg PO QPM 08/17/19 08/17/19 History Insulin Lispro [Humalog Kwikpen 5 - 10 unit SQ BID 08/17/19 08/17/19 History U-100] Levemir Flexpen [Levemir FlexPen] 30 units SC 1800 08/17/19 08/17/19 History Levothyroxine Sodium [Synthroid] 25 mcg PO DAILY 08/17/19 08/17/19 History metFORMIN [Glucophage] 850 mg PO BID 08/17/19 08/17/19 History - History PMHx: [place] in 2011 s/p pacemaker, DM I, hypothyroidism, HTN, vascular dementia, CKD stage II, stage 2 decubitus ulcer PSHx: pacemaker, hysterectomy FHx: Mother - Parkinsons/Alzheimers, Father - [place] age 62; Aunt - stroke at age 85 Social: Denies alcohol drug or tobacco use. Lives at [facility] - Review of Systems General: reports: fatigue. denies: fever/chills, weight/appetite/sleep changes , night sweats Eyes: denies: vision changes ENT: denies: nasal congestion Respiratory: denies: cough, congestion, shortness of breath Cardiovascular: denies: chest pain, palpitation, edema Gastrointestinal: reports: constipation, abdominal pain. denies: nausea, vomiting, diarrhea Genitourinary: denies: dysuria Skin: denies: rashes, lesions Musculoskeletal: denies: pain, tenderness, stiffness, swelling Neurological: reports: other (seizure) Psychological: reports: depression - Vital signs BP: 132/68, Pulse: 62, Resp: 19, Pain: 0, O2 sat: 93, Weight 76 kg Time: 2019 14:04 - Physical Exam Constitutional: NAD HEENT: normocephalic and atraumatic, conjunctiva clear Neck: supple Chest: no-tender to palpation, no lesions Heart: RRR Lungs: CTAB, no respiratory distress, no rales/rhonchi, no wheezing, no retractions -Lungs: poor air movement Abdomen: soft, non-tender, bowel sounds present Musculoskeletal: normal structure -Neurological: Patient w/ R sided hemiparesis 1/5 strength in RLE, 2/5 in RUE, R facial droop Cranial Nerve: 1: not assessed 2: not assessed 3: EOM in tact, delayed 4: intact wnl 5: unable to assess 6: in tact wnl 7: R facial droop and weakness 8: grossly in tact 9: intact, R sided deviation 10: not assessed 11: R sided weakness, L sided wnl 12: intact Heme/Lymphatic: no unusual bruising or bleeding, no purpura, no petechia FMR H&P: Results - Labs Result Diagrams: 09/10/19 13:44 09/10/19 13:44 Lab results: WBC 8.6 thou/uL (4.8-10.8) 09/10/19 13:44 Hgb 11.4 g/dL (12.0-16.0) L 09/10/19 13:44 Hct 34.5 % (36.0-47.0) L 09/10/19 13:44 MCV 88.8 fL (78.0-98.0) 09/10/19 13:44 Plt Count 280 thou/uL (130-400) 09/10/19 13:44 Neutrophils % 55.6 % (42.0-75.0) 09/10/19 13:44 Sodium 137 mmol/L (136-145) 09/10/19 13:44 Potassium 4.7 mmol/L (3.5-5.1) 09/10/19 13:44 Chloride 106 mmol/L (98-107) 09/10/19 13:44 Carbon Dioxide 21 mmol/L (23-31) L 09/10/19 13:44 BUN 34 mg/dL (9.8-20.1) H 09/10/19 13:44 Creatinine 1.41 mg/dL (0.6-1.1) H 09/10/19 13:44 Glucose 99 mg/dL (83-110) 09/10/19 13:44 Calcium 9.6 mg/dL (7.8-10.44) 09/10/19 13:44 Total Bilirubin 0.4 mg/dL (0.2-1.2) 09/10/19 13:44 AST 34 U/L (5-34) 09/10/19 13:44 ALT 22 U/L (8-55) 09/10/19 13:44 Alkaline Phosphatase 37 U/L (40-110) L 09/10/19 13:44 Creatine Kinase 36 U/L (29-168) 09/10/19 13:44 CK-MB (CK-2) 1.5 ng/mL (0-6.6) 09/10/19 13:44 Serum Total Protein 7.1 g/dL (6.0-8.3) 09/10/19 13:44 Albumin 3.9 g/dL (3.4-4.8) 09/10/19 13:44 Troponin .040, .038 - Radiology Interpretation CT scan - head Status: image reviewed by me, report reviewed by me (CT Brain showing no acute hemorrhage CTA showing no embolism/occlusion) Chest x-ray Status: image reviewed by me, report reviewed by me (No acute cardiopulm process ) FMR H&P: A/P - Plan Encephalopathy 2/2 new/evolving CVA: - CTH and CTA both negative for acute processes - PT, OT, SLT consults - Bowel regimen - ECHO - Trend trops - ferritin, LDH, CRP, BNP, Ammonia level, Procal JARED - LR @110cc/hr - Check residual bladder volume, if >300cc place lopez - monitor I/O - UA DM - A1c CAD: History of [place] s/p pacemaker placement-not MRI compatible - Aware, will continue home meds HLD - Aware, will continue home meds HTN - Aware, will continue home meds HoThyroid: - Aware, will continue home meds HLD - Aware, will continue home meds Dispo: Will admit to stroke observation, LOS<48 hrs FMR H&P: Upper Level - Plan Date/Time: 09/10/19 9845 I, Leora Felder MD, have evaluated this patient and agree with findings/plan as outlined by paid intern resident. Pertinent changes/additions are listed here. This is a 73yo F who presents from [facility] for worsening right sided facial droop, hypotension, and cold/claminess. Patient has a PMH significant for CVAs with right sided deficits. She was recently discharged about a week ago for deconditioning and was discharged to the SNF. Per SNF, the patient was clamy and cold last Wednesday and she refused to go into the hospital at that time. She had a trop drawn that was indeterminant at that time. No known COVID exposures at the assisted. No fever. She has not had a great appetite. The patient was seen normal yesterday by her . He was present in the ER and was able to give hx that she was doing well yesterday and was responding normally. He states that today she is different in regards to her speech. He thinks her droop and right sided weakness is her normal. He believes that she has been constipated but is unsure. On exam, the patient does respond appropriately, but other times seems very lethargic. She is able to move her right side, but it is weaker than the left. Right sided facial droop noted. Patient endorses abdominal pain with TTP mostly suprapubic. Plan: admit to stroke, obs. Patient with encephalopathy likely 2/2 TIA vs new CVA or evolving old infarct. Dysphagia screen - NPO until cleared. PT/OT/Speech ordered. No infectious source noted at this time - procal ordered. UA ordered. CXR showing no infiltrate. She does have a stage 2 decubitus ulcer that was being treated at the SNF. Will order wound care to treat here. Patient with hx of constipatoin and urinary incontinance - will order for bowel regimen. Lopez to be placed. Hx of DM - will order a1c, SS ordered. No hx of CHF, BNP mildly elevated and murmur - echo ordered. Will give mIVF. Dispo: admit tele, obs PPx: heparin Code: FULL, palliative care ordered as patient was previously DNR. Poor prognosis. Case discussed with Dr. Fletcher Addendum - Attending - Attending Attestation Date/Time: 09/10/19 7003 I personally evaluated the patient and discussed the management with Dr. Purdy I agree with the History, Examination, Assessment and Plan documented above with any addition or exceptions noted below. Patient with recent significant decline in overall functional capacity. Significant RIGOBERTO recommend Echocardiogram if none recent as exam suggestive of worsening Aortic Stenosis. Patient appears to have suffered recent CVA based on subjective increased right sided weakness swallow study. Wound consult for sacral decubitus and Palliative care to review goals of care note recent change from DNR-DNI to full code.
[2019-09-10] MEDS ORDERED: Acetaminophen 325 MG TAB PO PRN (16:40)
[2019-09-10] MEDS ORDERED: Acetaminophen 650 MG Suppository PR PRN (16:40)
[2019-09-10 17:54] LABS: Troponin I 0.038 ng/mL (< 0.028)
[2019-09-10] MEDS ORDERED: Dextrose 50% Abboject 50 ML SYRINGE SLOW IVP PRN (18:08)
[2019-09-10] MEDS ORDERED: Senokot S 8.6-50 MG TAB PO PRN (18:08)
[2019-09-10] MEDS ORDERED: HumaLOG 300 UNITS/3 ML VIAL SC PRN ×2 (18:08)
[2019-09-10] MEDS ORDERED: Dextrose 5% in Water 1,000 ML IV PRN (18:08)
[2019-09-10] MEDS ORDERED: Ondansetron HCl/PF 4 MG in Sodium Chloride 0.9% 50 ML IVPB PRN (18:15)
[2019-09-10] MEDS ORDERED: Ondansetron PF 4 MG/2 ML Vial SLOW IVP PRN (18:22)
[2019-09-10] MEDS ORDERED: Polyethylene Glycol 3350 17 GM Packet PO SCH (18:30)
[2019-09-10 19:50] VITALS: BMI 29.4
[2019-09-10 20:53] LABS: Troponin I 0.044 ng/mL (< 0.028)
[2019-09-10] MEDS: Heparin 5,000 UNITS/ML VIAL SC SCH (20:55)
[2019-09-10] MEDS: Lactated Ringer's 1,000 ML IV SCH (21:06)
[2019-09-11 01:34] LABS: Troponin I 0.034 ng/mL (< 0.028)
[2019-09-11] MEDS: Lactated Ringer's 1,000 ML IV SCH ×3 (04:00→20:04)
[2019-09-11 04:35] LABS: Bacteria/HPF 3+ HPF (None Seen); Bilirubin Negative (Negative); Blood, Urine Negative (Negative); Clarity Clear (Clear); Glucose, Urine (Dipstick) Normal (Negative); Ketone, Urine Trace mg/dL (Negative); Leukocyte 250 Leu/uL (Negative); Nitrite 1+ (Negative); Protein, Urine (Dipstick) Negative (Neg-Trace); RBC/HPF 0-3 HPF (0-3); Specific Gravity, Urine 1.034 (1.002-1.036); Squamous Epithelial 0-3 HPF (0-3); Urobilinogen Normal mg/dL (Less than 2); WBC/HPF 0-3 HPF (0-3)
[2019-09-11 04:41] LABS: Urine Culture Reflex Yes Yes
[2019-09-11 05:10] LABS: #Lymphocytes 1.6 thou/uL (1.20-3.40); #Monocytes 0.2 thou/uL (0.11-0.59); #Neutrophils 5.4 thou/uL (1.40-6.50); %Basophils 0.5 % (0.0-1.0); %Eosinophils 0.2 % (0.0-10.0); %Lymphocytes 22.5 % (21.0-51.0); %Monocytes 2.2 % (0.0-10.0); %Neutrophils 74.6 % (42.0-75.0); Hemoglobin 10.8 g/dL (12.0-16.0); Mean Corpuscular HGB CONC 32.4 g/dL (32.0-36.0); Mean Corpuscular Hemoglobin 28.8 pg (27.0-31.0); Mean Corpuscular Volume 89.1 fL (78.0-98.0); Mean Platelet Volume 9.5 fL (7.4-10.4); Platelet Count 266 thou/uL (130-400); RBC Distribution Width 13.8 % (11.5-14.5); Red Blood Cell (RBC) Count 3.76 mill/uL (4.20-5.40); White Blood Cell (WBC) Count 7.2 thou/uL (4.8-10.8)
[2019-09-11 05:18] LABS: Anion Gap 18 mmol/L (10-20); BUN (Urea Nitrogen) 32 mg/dL (9.8-20.1); Calc. Creatinine Clearance 49 mL/min (70-130); Calcium 9.5 mg/dL (7.8-10.44); Carbon Dioxide 19 mmol/L (23-31); Cardiac Risk 5.9 (Less than 4.5); Chloride 106 mmol/L (98-107); Cholesterol 164 mg/dl (< 200 Desired); Estimated GFR-MDRD 43; Glucose 127 mg/dL (83-110); HDL Cholesterol 28 mg/dL (>60 Neg Risk); LDL Cholesterol, Calculated 94 mg/dL; Potassium 4.5 mmol/L (3.5-5.1); Sodium 138 mmol/L (136-145); Triglycerides 212 mg/dL (Less than 150)
--- NOTE | 2019-09-11 05:49 | PDOC.FM ---
- Subjective Subjective: Pt is a 73 yo F with a PMH of multiple CVAs, DM 1, HLD, HTN, hypothyroidism, and [place] s/p packemaker who presented with R sided weakness in the setting of encephalopathy likely 2/2 new CVA. Overnight, nurse called about patient being very altered. She was complaining of bugs in her bed and talking "a lot of nonsense". Today, patient was oriented to person but not place or [place]. [place] that her father was sleeping in the room when there was no one there. She had pulled out her IV and was pulling on her SCDs. She endorses new dysuria and mild subprapubic pain. She denies any numbness or weakness, and says she feels much better compared to when she came to the ED. Denies MCCLELLAN, changes in vision, SOB, CP, N/V, chills, abdominal pain. - Objective MAR Reviewed: Yes Vital Signs & Weight: Vital Signs (12 hours) Temp Pulse Resp BP Pulse Ox 09/11/19 04:09 98.6 F 79 16 141/67 H 97 09/11/19 00:00 97.7 F 76 18 134/72 97 09/10/19 20:00 97.9 F 77 16 144/76 H 99 09/10/19 17:53 98 F 67 16 121/57 L 97 Weight Weight 75.41 kg I&O: I/O: 30/200 balance: -170mLs Result Diagrams: 09/11/19 04:45 09/11/19 04:46 Phys Exam - Physical Examination Constitutional: NAD HEENT: sclera anicteric Neck: full ROM Respiratory: no wheezing, clear to auscultation bilateral Cardiovascular: RRR Gastrointestinal: soft, positive bowel sounds tender to palpation in the suprapubic region Musculoskeletal: no edema, pulses present Neurological: moves all 4 limbs (Patient has decreased strength on her right UE & LE (2/5 strength), which is her baseline from her previous strokes. She also has a slight facial droop on her right side. She is able to follow commands without difficulty) Psychiatric: normal affect Deviation from normal: Oriented to person, but not to time or place. Skin: no rash, normal turgor Dx/Plan - Plan Plan: Encephalopathy 2/2 likely new vs evolving CVA: - CTH and CTA both negative for acute processes - cannot get MRI due to pacemaker which is MRI not compatible - PT, OT, SLT consults - Bowel regimen - ECHO pending AMS likely 2/2 UTI -will work to reorient patient today - positive nitrites, 250 leuks, 3+ bacteria - Rocephin 1g q24H (09/10) - f/u U cx JARED - likely pre renal, +ketones on UA - LR @110cc/hr - monitor I/O Elevated Troponin no CP, SOB - Trops stable .04, .038, .044, .034 - patient has a history of elevated troponins DM - A1c 5.0 - Humalog moderate SSI CAD: History of [place] s/p pacemaker placement - Aware, will continue home meds HLD - Aware, will continue home meds HTN - Aware, will continue home meds Hypohyroid: - Aware, will continue home meds HLD - Aware, will continue home meds Dispo: admit tele, obs PPx: heparin Code: FULL, palliative care ordered as patient was previously DNR. Poor prognosis. Addendum - Attending - Attending Attestation Date/Time: 09/11/19 1203 I personally evaluated the patient and discussed the management with Dr. Nava. I agree with the History, Examination, Assessment and Plan documented above with any addition or exceptions noted below. Patient here for encephalopathy likely superimposed on mild dementia at baseline. We are treating for UTI at this time and awaiting cultures. She had very extensive workup a few weeks ago that did not reveal much pertinent to this admission. Renal function stable. Continue therapy. Do not suspect repeat stroke as no focal findings. Monitor mentation as we treat her infection.
[2019-09-11] MEDS: cefTRIAXone\\ROCEPHIN 1 GM in Sodium Chloride 0.9% 100 ML IVPB SCH (10:36)
[2019-09-11] MEDS: Heparin 5,000 UNITS/ML VIAL SC SCH ×3 (10:36→20:03)
[2019-09-11] MEDS: Polyethylene Glycol 3350 17 GM Packet PO SCH (10:37)
--- NOTE | 2019-09-11 11:32 | CON ---
DATE OF CONSULTATION: 09/11/2019 REASON FOR CONSULTATION: Rule out CVA. HISTORY OF PRESENT ILLNESS: Ms. Crowell is a 73-year-old female with history significant for diabetes, hypertension, vascular dementia, hypothyroidism, coronary artery disease, status post pacemaker, end-stage renal disease, and prior CVA with right-sided deficits, [facility] because of worsening right facial droop and weakness on the right side of the body. The patient denies nausea, vomiting, headache, dizziness, chest pain, vertigo, loss of vision, blurred vision, loss of consciousness, or abnormal body movement associated with the episode. REVIEW OF SYSTEMS: All 14 systems were reviewed and were negative except for the pertinent positives and negatives mentioned in the HPI. - Allergies/Adverse Reactions Allergies Allergy/AdvReac Type Severity Reaction Status Date / Time Iodine and Iodide Containing Allergy Verified 05/25/19 13:33 Produc meperidine HCl [From Demerol] Allergy Verified 05/25/19 13:33 propoxyphene HCl Allergy Verified 05/25/19 13:33 [From Darvon] - Home Medications Medication Instructions Recorded Confirmed Type Fenofibrate Nanocrystallized 145 mg PO DAILY 12/03/14 08/17/19 History [Tricor] Losartan Potassium [Cozaar] 100 mg PO DAILY 12/03/14 08/17/19 History Metoprolol Succinate 50 mg PO DAILY 12/03/14 08/17/19 History Pregabalin [Lyrica] 75 mg PO BID 12/03/14 08/17/19 History Venlafaxine HCl [Effexor XR] 75 mg PO BID 12/03/14 08/17/19 History Amlodipine [Norvasc] 10 mg PO DAILY #0 tab 12/18/14 08/17/19 Rx Clopidogrel Bisulfate [Plavix] 75 mg PO DAILY #0 tab 12/18/14 08/17/19 Rx Albuterol Sulfate [Proair HFA] 1 puff INH Q4HR PRN 08/17/19 08/17/19 History Aspirin 81 mg PO DAILY 08/17/19 08/17/19 History Atorvastatin Calcium [Lipitor] 40 mg PO QPM 08/17/19 08/17/19 History Insulin Lispro [Humalog Kwikpen 5 - 10 unit SQ BID 08/17/19 08/17/19 History U-100] Levemir Flexpen [Levemir FlexPen] 30 units SC 1800 08/17/19 08/17/19 History Levothyroxine Sodium [Synthroid] 25 mcg PO DAILY 08/17/19 08/17/19 History metFORMIN [Glucophage] 850 mg PO BID 08/17/19 08/17/19 History PAST MEDICAL HISTORY: 1. Myocardial infarction, status post pacemaker in 2011. 2. Diabetes. 3. Hypertension. 4. Vascular dementia. 5. End-stage renal disease. PAST SURGICAL HISTORY: 1. Status post pacemaker implantation. 2. Hysterectomy. FAMILY HISTORY: Significant for Alzheimer in the mother, and father of stroke. SOCIAL HISTORY: The patient lives at [facility]. She denies smoking, alcohol, or illegal drug use. Vital Signs & Weight: Vital Signs (12 hours) Temp Pulse Resp BP Pulse Ox 09/11/19 04:09 98.6 F 79 16 141/67 H 97 09/11/19 00:00 97.7 F 76 18 134/72 97 09/10/19 20:00 97.9 F 77 16 144/76 H 99 09/10/19 17:53 98 F 67 16 121/57 L 97 Weight Weight 75.41 kg - Physical Exam Constitutional: NAD HEENT: normocephalic and atraumatic Neck: supple Chest: no-tender to palpation, no lesions Heart: RRR Lungs: CTAB, no respiratory distress, no rales/rhonchi, no wheezing, no retractions Abdomen: soft, non-tender Musculoskeletal: normal structure -Neurological: Mental status, the patient is alert and oriented to person only. Speech is slurred. She does have receptive aphasia. Cranial nerves; pupils are round and reactive to light. Right facial droop. Sensation intact in V1, V2, V3 distribution. Tongue midline. Moves neck in both direction. Hearing seems to be intact. Motor; muscle tone is decreased on the right, normal on the left. Right hemiparesis. Right upper extremity 2/5, right lower extremity 3/5. Reflexes symmetric bilaterally. Cerebellar, unable to perform on the right secondary to weakness. Gait deferred due to the patient's safety reasons. Lab results: WBC 8.6 thou/uL (4.8-10.8) 09/10/19 13:44 Hgb 11.4 g/dL (12.0-16.0) L 09/10/19 13:44 Hct 34.5 % (36.0-47.0) L 09/10/19 13:44 MCV 88.8 fL (78.0-98.0) 09/10/19 13:44 Plt Count 280 thou/uL (130-400) 09/10/19 13:44 Neutrophils % 55.6 % (42.0-75.0) 09/10/19 13:44 Sodium 137 mmol/L (136-145) 09/10/19 13:44 Potassium 4.7 mmol/L (3.5-5.1) 09/10/19 13:44 Chloride 106 mmol/L (98-107) 09/10/19 13:44 Carbon Dioxide 21 mmol/L (23-31) L 09/10/19 13:44 BUN 34 mg/dL (9.8-20.1) H 09/10/19 13:44 Creatinine 1.41 mg/dL (0.6-1.1) H 09/10/19 13:44 Glucose 99 mg/dL (83-110) 09/10/19 13:44 Calcium 9.6 mg/dL (7.8-10.44) 09/10/19 13:44 Total Bilirubin 0.4 mg/dL (0.2-1.2) 09/10/19 13:44 AST 34 U/L (5-34) 09/10/19 13:44 ALT 22 U/L (8-55) 09/10/19 13:44 Alkaline Phosphatase 37 U/L (40-110) L 09/10/19 13:44 Creatine Kinase 36 U/L (29-168) 09/10/19 13:44 CK-MB (CK-2) 1.5 ng/mL (0-6.6) 09/10/19 13:44 Serum Total Protein 7.1 g/dL (6.0-8.3) 09/10/19 13:44 Albumin 3.9 g/dL (3.4-4.8) 09/10/19 13:44 - Radiology Interpretation CT scan - head Status: image reviewed by me, report reviewed by me (CT Brain showing no acute hemorrhage CTA showing no embolism/occlusion) Chest x-ray Status: image reviewed by me, report reviewed by me (No acute cardiopulmonary process) DATA REVIEWED: I reviewed the labs, which were significant for anemia, hemoglobin 11.4, hematocrit is 34.5. BUN was 34 and creatinine was 1.4. The rest of the labs were unremarkable. I reviewed the CT of the head, which showed old infarct, but no acute intracranial pathology. CT angiogram was also reviewed, which was negative for hemodynamically significant stenosis. ASSESSMENT AND PLAN: Ms. Kaur Crowell is consulted for worsening right-sided weakness and right facial droop. She does have risk factors for stroke. I recommend head CT 48 hours after symptom onset, if MRI of brain is not compatible with pacemaker to rule out acute intracranial process, Telemetry. Recommend aspirin and high- intensity statin for secondary stroke prevention. Neuro checks every 4 hours. 2D echo to rule out cardioembolic source. Recommend EEG for altered mental status. N.p.o. till formal speech eval for dysphagia, PT/OT. Continue medical management per primary team. Further recommendations depend upon the results of the testing. We will continue to follow. Thank you for the consult. Job ID: [id number] [facility]
--- NOTE | 2019-09-11 11:41 | OP ---
EEG REPORT DATE OF PROCEDURE: 09/11/2019 This EEG was performed using 24-channel [employer] video digital EEG machine with 24- disk electrodes. This was an extended 2 hour and 5 minutes of inpatient video EEG recording. Digital analysis of the EEG was done for spike and seizure detection , which revealed no abnormalities. BACKGROUND: The posterior background rhythm was not observed. HYPERVENTILATION: Not performed. PHOTIC STIMULATION: No significant response seen with photic stimulation. EEG DIAGNOSES: 1. Intermittent irregular theta activity seen during the recording. 2. Nonsustained posterior background rhythm. CLINICAL INTERPRETATION: This EEG is consistent with mild generalized nonspecific cerebral dysfunction. No ictal or interictal epileptiform abnormalities seen during the recording. Job ID: [id number] [facility]
[2019-09-11] MEDS ORDERED: Albuterol Sulfate 1.25 MG/3 ML NEB NEB PRN (17:45)
[2019-09-11] MEDS: Pregabalin 75 MG CAP PO SCH (20:03)
[2019-09-11] MEDS: metFORMIN 850 MG TAB PO SCH (20:03)
[2019-09-11] MEDS: Atorvastatin Calcium 40 MG TAB PO SCH (20:03)
[2019-09-11] MEDS: Venlafaxine HCl XR 75 MG CAP PO SCH (20:04)
[2019-09-12] MEDS: Levothyroxine Sodium 25 MCG TAB PO SCH (05:18)
[2019-09-12] MEDS: Lactated Ringer's 1,000 ML IV SCH ×3 (05:19→21:48)
--- NOTE | 2019-09-12 05:57 | PDOC.FM ---
- Subjective Subjective: Pt is a 73 yo F with a PMH of multiple CVAs, DM 1, HLD, HTN, hypothyroidism, and [place] s/p packemaker who presented with R sided weakness in the setting of encephalopathy likely 2/2 new CVA and AMS in the setting of UTI. Overnight, no acute events. EEG done yesterday showed showed mild generalized nonspecific cerebral dysfunction. Today, patient is resting comfortably in bed. She is alert to person and time. When asked about where she was, she was able to answer that she was in a hospital but could not tell me where. She is not having hallucinations. Patient states she was very confused yesterday and is doing much better today. She does endorse improvement in the R sided weakness she came to the ED with, but states she is more weak than her baseline. She denies dysuria, suprapubic pain, MCCLELLAN, CP , SOB, abdominal pain, or edema. - Objective MAR Reviewed: Yes Vital Signs & Weight: Vital Signs (12 hours) Temp Pulse Resp BP Pulse Ox 09/12/19 03:43 97.4 F L 69 20 143/64 H 97 09/11/19 23:36 97.6 F 77 16 139/64 99 09/11/19 19:42 97.9 F 72 16 142/68 H 97 Weight Admit Weight 75.41 kg Weight 75.41 kg I&O: 09/10/19 09/11/19 09/12/19 06:59 06:59 06:59 Intake Total 30 3066 Output Total 200 3250 Balance -170 -184 Result Diagrams: 09/12/19 05:55 09/12/19 05:55 Phys Exam - Physical Examination Constitutional: NAD HEENT: moist MMs, sclera anicteric Neck: supple, full ROM Respiratory: no wheezing, no rales, no rhonchi Cardiovascular: RRR systolic murmur noted on exam Gastrointestinal: soft, non-tender, no distention, positive bowel sounds Musculoskeletal: no edema Neurological: moves all 4 limbs (patient has right facial droop, 2/5 strength in RUE and RLE. Able to follow commands without difficulty) Psychiatric: normal affect, A&O x 3 (see HPI about comment on orientation to place) Skin: no rash, normal turgor Dx/Plan - Plan Plan: Encephalopathy 2/2 likely new vs evolving CVA: - CTH and CTA both negative for acute processes - cannot get MRI due to pacemaker which is MRI not compatible - PT, OT on board - SLT consulted, recommended pureed thick, appreciate the recs - ECHO and CTA Angio neck results pending - repeat heat CT today as per neuro - Dr. Vee, neuro on board, appreciate the recs AMS likely 2/2 UTI - EEG done as per neuro, showed mild generalized nonspecific cerebral dysfunction - will continue to work to reorient patient - positive nitrites, 250 leuks, 3+ bacteria - Rocephin 1g q24H (09/10) - f/u U cx JARED - likely pre renal, +ketones on UA - improving, Cr today 1.02 from 1.23 - d/c IVF (09/11) patient is tolerating PO - monitor I/O Elevated Troponin no CP, SOB - Trops stable .04, .038, .044, .034 - patient has a history of elevated troponins DM - A1c 5.0 - Humalog moderate SSI CAD: History of [place] s/p pacemaker placement - Aware, will continue home meds HLD - Aware, will continue home meds HTN - Aware, will continue home meds Hypohyroid: - Aware, will continue home meds HLD - Aware, will continue home meds Patient's was contacted yesterday afternoon to discuss patient care as per his request. He is also concerned about the cost of [place]. Case management has been consulted for dispo planning. Will try to contact patient's again today. PCP: Chance Dispo: admit tele, inpatient PPx: heparin Code: FULL Addendum - Attending - Attending Attestation Date/Time: 09/12/19 7548 I personally evaluated the patient and discussed the management with Dr. Nava. I agree with the History, Examination, Assessment and Plan documented above with any addition or exceptions noted below. Patient overall improved this morning, but still suffering from some disorientation. We continue to treat her encephalopathy from UTI with Rocephin. Awaiting cultures. Neuro on board for concern of possible new infarct and unable to get MRI. Repeat CT read pending. Continue usual post-stroke care for now. Hoping that mentation will continue to clear though she does likely have some degree of baseline dementia that is complicating her improvement.
[2019-09-12 06:05] LABS: #Eosinphils 0.1 thou/uL (0.0-0.7); #Monocytes 1.1 thou/uL (0.11-0.59); #Neutrophils 5.7 thou/uL (1.40-6.50); %Basophils 0.2 % (0.0-1.0); %Eosinophils 0.6 % (0.0-10.0); %Lymphocytes 36.9 % (21.0-51.0); %Monocytes 9.9 % (0.0-10.0); %Neutrophils 52.5 % (42.0-75.0); Hemoglobin 10.8 g/dL (12.0-16.0); Mean Corpuscular HGB CONC 33.4 g/dL (32.0-36.0); Mean Corpuscular Hemoglobin 29.1 pg (27.0-31.0); Mean Corpuscular Volume 87.3 fL (78.0-98.0); Mean Platelet Volume 9.1 fL (7.4-10.4); Platelet Count 282 thou/uL (130-400); RBC Distribution Width 13.8 % (11.5-14.5); Red Blood Cell (RBC) Count 3.69 mill/uL (4.20-5.40); White Blood Cell (WBC) Count 10.8 thou/uL (4.8-10.8)
[2019-09-12 06:29] LABS: ALT (SGPT) 19 U/L (8-55); AST (SGOT) 31 U/L (5-34); Albumin 3.8 g/dL (3.4-4.8); Alkaline Phosphatase 35 U/L (40-110); Anion Gap 14 mmol/L (10-20); BUN (Urea Nitrogen) 21 mg/dL (9.8-20.1); Bilirubin, Total 0.4 mg/dL (0.2-1.2); Calc. Creatinine Clearance 59 mL/min (70-130); Calcium 9.3 mg/dL (7.8-10.44); Carbon Dioxide 24 mmol/L (23-31); Chloride 105 mmol/L (98-107); Estimated GFR-MDRD 53; Glucose 83 mg/dL (83-110); Potassium 3.9 mmol/L (3.5-5.1); Protein, Total 6.8 g/dL (6.0-8.3); Sodium 139 mmol/L (136-145)
--- NOTE | 2019-09-12 08:21 | CT ---
Exam: Head CT without contrast HISTORY: Right-sided weakness COMPARISON: 09/10/2019 FINDINGS: Hemorrhage: Alcohol narrowing without myometrial Brain parenchyma: Loss of maya-white matter differentiation involving the medial left frontal lobe, a t the level the corpus callosum.Chronic small vessel ischemic changes of the left frontal subcortical white matter is noted. Ventricular system: Ventricles and sulci are patent and symmetric. Calvarium: Intact. Sinuses and mastoid air cells: Adequate aeration. IMPRESSION: 1. Findings suggesting a subacute infarct involving the medial left frontal lobe
[2019-09-12] MEDS: Losartan 25 MG TAB PO SCH (09:11)
[2019-09-12] MEDS: Clopidogrel Bisulfate 75 MG TAB PO SCH (09:11)
[2019-09-12] MEDS: metFORMIN 850 MG TAB PO SCH ×2 (09:11→21:48)
[2019-09-12] MEDS: Pregabalin 75 MG CAP PO SCH ×2 (09:11→21:49)
[2019-09-12] MEDS: Fenofibrate Nanocrystallized 145 MG TAB PO SCH (09:12)
[2019-09-12] MEDS: Aspirin Chewable 81 MG TAB PO SCH (09:12)
[2019-09-12] MEDS: Venlafaxine HCl XR 75 MG CAP PO SCH ×2 (09:12→21:49)
[2019-09-12] MEDS: Polyethylene Glycol 3350 17 GM Packet PO SCH (09:13)
[2019-09-12] MEDS: Heparin 5,000 UNITS/ML VIAL SC SCH ×3 (09:13→21:48)
[2019-09-12] MEDS: Amlodipine 5 MG TAB PO SCH (09:13)
[2019-09-12] MEDS: cefTRIAXone\\ROCEPHIN 1 GM in Sodium Chloride 0.9% 100 ML IVPB SCH (09:30)
--- NOTE | 2019-09-12 11:44 | PDOC.HOSPP ---
- Subjective Encounter Date: 09/12/19 Subjective: NEUROLOGY PROGRESS NOTE Patient is alert, awake and follows commands. Head CT positive for stroke. Persistent speech deficit. - Objective Vital Signs & Weight: Vital Signs (12 hours) Temp Pulse Resp BP Pulse Ox 09/12/19 09:13 67 09/12/19 07:17 97.5 F L 67 20 148/62 H 97 09/12/19 03:43 97.4 F L 69 20 143/64 H 97 Weight Admit Weight 166 lb 4 oz Weight 166 lb 4 oz I&O: 09/11/19 09/12/19 09/13/19 06:59 06:59 06:59 Intake Total 30 3066 Output Total 200 3250 Balance -170 -184 Result Diagrams: 09/12/19 05:55 09/12/19 05:55 Additional Labs: Accuchecks 09/12/19 09/12/19 09/11/19 11:04 05:39 19:53 POC Glucose 127 H 80 148 H 09/11/19 09/11/19 16:46 13:34 POC Glucose 91 84 Radiology Reviewed by me: Yes EKG Reviewed by me: Yes Hospitalist ROS - Review of Systems ROS unobtainable: due to mental status (speech deficit) - Medication Medications: Active Medications Generic Name Dose Route Start Last Admin Trade Name Henrry PRN Reason Stop Dose Admin Amlodipine Besylate 10 mg 09/12/19 09:00 09/12/19 09:13 Norvasc PO 10 mg DAILY NATHANIEL Administration Aspirin 81 mg 09/12/19 09:00 09/12/19 09:12 Aspirin Chewable PO 81 mg DAILY NATAHNIEL Administration Atorvastatin Calcium 40 mg 09/11/19 21:00 09/11/19 20:03 Lipitor PO 40 mg HS NATHANIEL Administration Clopidogrel Bisulfate 75 mg 09/12/19 09:00 09/12/19 09:11 Plavix PO 75 mg DAILY NATHANIEL Administration Fenofibrate 145 mg 09/12/19 09:00 09/12/19 09:12 Tricor PO 145 mg DAILY NATHANIEL Administration Heparin Sodium (Porcine) 5,000 units 09/10/19 21:00 09/12/19 09:13 Heparin SC 5,000 units TID NATHANIEL Administration Lactated Ringer's 1,000 mls @ 110 mls/hr 09/10/19 18:30 09/12/19 05:19 Lactated Ringer's IV 1,000 mls .[id number] NATHANIEL Administration Ceftriaxone Sodium 1 gm/ 100 mls @ 200 mls/hr 09/11/19 07:00 09/12/19 09:30 Sodium Chloride IVPB 100 mls Q24HR NATHANIEL Administration Levothyroxine Sodium 25 mcg 09/12/19 06:00 09/12/19 05:18 Synthroid PO 25 mcg 0600 NATHANIEL Administration Losartan Potassium 100 mg 09/12/19 09:00 09/12/19 09:11 Cozaar PO 100 mg DAILY NATHANIEL Administration Metformin HCl 850 mg 09/11/19 21:00 09/12/19 09:11 Glucophage PO 850 mg BID NATHANIEL Administration Metoprolol Succinate 50 mg 09/12/19 09:00 09/12/19 09:12 Toprol Xl PO 50 mg DAILY NATHANIEL Administration Polyethylene Glycol 17 gm 09/11/19 09:00 09/12/19 09:13 Miralax PO 17 gm DAILY NATHANIEL Administration Pregabalin 75 mg 09/11/19 21:00 09/12/19 09:11 Lyrica PO 75 mg BID NATHANIEL Administration Venlafaxine HCl 75 mg 09/11/19 21:00 09/12/19 09:12 Effexor Xr PO 75 mg BID NATHNAIEL Administration - Exam General Appearance: awake alert Eye: PERRL ENT: normocephalic atraumatic Neck: supple Heart: RRR Respiratory: CTAB Gastrointestinal: soft Extremities: no cyanosis Skin: normal turgor Neurological: no new deficit, speech deficit Musculoskeletal: normal tone, no muscle wasting Psychiatric: normal affect, normal behavior, oriented to person, oriented to place, oriented to time Hosp A/P (1) CVA (cerebral vascular accident) Code(s): I63.9 - CEREBRAL INFARCTION, UNSPECIFIED Status: Chronic Qualifiers: CVA mechanism: thrombosis Precerebral and cerebral artery: unspecified cerebral artery Qualified Code(s): I63.30 - Cerebral infarction due to thrombosis of unspecified cerebral artery (2) Type II diabetes mellitus Status: Acute (3) Diabetes 1.5, managed as type 2 Code(s): E13.9 - OTHER SPECIFIED DIABETES MELLITUS WITHOUT COMPLICATIONS Status: Chronic - Plan PT/OT, speech therapy, out of bed/ambulate 73 year old presented with altered mental status and speech deficit. Recent Head CT positive for subacute left frontal lobe infarct. Initial CT Head and CTA reviewed which was both negative for acute processes Unable to get MRI due to pacemaker Recommend ASA and statin for secondary stroke prevention. EEG did not show nay seizure activity. Telemetry. ECHO pending PT/OT/Speech Continue home medications. Continue medical management per primary team. Plan discussed with patient and floor team during MDR rounds.
[2019-09-12] MEDS: Atorvastatin Calcium 40 MG TAB PO SCH (21:49)
[2019-09-13] MEDS: Levothyroxine Sodium 25 MCG TAB PO SCH (05:00)
[2019-09-13 05:29] LABS: #Basophils 0.1 thou/uL (0.0-0.2); #Eosinphils 0.2 thou/uL (0.0-0.7); #Monocytes 0.9 thou/uL (0.11-0.59); #Neutrophils 4.8 thou/uL (1.40-6.50); %Basophils 0.6 % (0.0-1.0); %Eosinophils 1.8 % (0.0-10.0); %Lymphocytes 40.3 % (21.0-51.0); %Monocytes 9.1 % (0.0-10.0); %Neutrophils 48.2 % (42.0-75.0); Hemoglobin 10.8 g/dL (12.0-16.0); Mean Corpuscular HGB CONC 32.9 g/dL (32.0-36.0); Mean Corpuscular Volume 88.2 fL (78.0-98.0); Mean Platelet Volume 9.3 fL (7.4-10.4); Platelet Count 272 thou/uL (130-400); RBC Distribution Width 13.5 % (11.5-14.5); Red Blood Cell (RBC) Count 3.72 mill/uL (4.20-5.40); White Blood Cell (WBC) Count 9.9 thou/uL (4.8-10.8)
--- NOTE | 2019-09-13 05:55 | PDOC.FM ---
- Subjective Subjective: Pt is a 73 yo F with a PMH of multiple CVAs, DM 1, HLD, HTN, hypothyroidism, and [place] s/p packemaker who presented with R sided weakness in the setting of encephalopathy 2/2 new CVA and AMS in the setting of UTI. Overnight, the night team was called about patient's IV. It was found to be infiltrated, so it was removed. This is the second time this has happened. Patient is only receiving Rocephin via her IV, so changed Abx to PO as we wait for final UCx results and sensitivities. I called patient's to discuss placement, and he wants to explore all of the options, and does not want to commit to a place until he speaks with case management to discuss further options now that she has a diagnosis of a new stroke. Today, patient is resting comfortably in bed. She is alert and oriented to person, time and she thinks she is in a house in [place], [place]. She has no complaints. She denies MCCLELLAN, CP, SOB, dysuria, abdominal pain, increased weakness or numbness. - Objective MAR Reviewed: Yes Vital Signs & Weight: Vital Signs (12 hours) Temp Pulse Resp BP Pulse Ox 09/13/19 04:37 97.7 F 68 18 134/66 94 L 09/12/19 21:49 98 09/12/19 19:49 97.2 F L 58 L 20 98 Weight Admit Weight 75.41 kg Weight 75.41 kg I&O: 09/11/19 09/12/19 09/13/19 06:59 06:59 06:59 Intake Total 30 3066 1534 Output Total 200 3250 700 Balance -170 -184 834 Result Diagrams: 09/13/19 04:49 09/13/19 04:49 Phys Exam - Physical Examination Constitutional: NAD HEENT: sclera anicteric Neck: supple, full ROM Respiratory: no wheezing, clear to auscultation bilateral Cardiovascular: RRR, no rub systolic murmur auscultated Gastrointestinal: soft, non-tender, no distention, positive bowel sounds Musculoskeletal: no edema, pulses present Neurological: moves all 4 limbs (patient has right sided facial droop, 2/5 strength in RUE and RLE but is able to follow commands without difficulty) Psychiatric: normal affect Deviation from normal: alert to person & time, knows shes in [place], [place] but thinks shes in a house Skin: no rash, normal turgor Dx/Plan - Plan Plan: Encephalopathy likely 2/2 new CVA: - CTH and CTA both negative for acute processes - cannot get MRI due to pacemaker which is MRI not compatible - PT, OT, speech on board - ECHO and CTA Angio neck results pending - repeat heat CT showed subacute infarct of medial left frontal lobe (09/11) - Dr. Vee, neuro on board, appreciate the recs AMS likely 2/2 UTI - EEG done as per neuro, showed mild generalized nonspecific cerebral dysfunction - will continue to work to reorient patient - positive nitrites, 250 leuks, 3+ bacteria - Rocephin stopped and switch to PO Omnicef 2/2 infiltrated IV (09/12) - f/u U cx and sensitivities JARED - likely pre renal, +ketones on UA - improving, Cr today 1.02 from 1.23 - d/c IVF (09/11) patient is tolerating PO - monitor I/O Elevated Troponin no CP, SOB - Trops stable .04, .038, .044, .034 - patient has a history of elevated troponins DM - A1c 5.0 - Humalog moderate SSI CAD: History of [place] s/p pacemaker placement - Aware, will continue home meds HLD - Aware, will continue home meds HTN - Aware, will continue home meds Hypohyroid: - Aware, will continue home meds HLD - Aware, will continue home meds Patient's was contacted to discuss patient care yesterday. He is not taking well to declining function of his . Palliative care on board to discuss goals of care, appreciate the help. Originally was going to try to get patient back to [place], but wants to explore all options available for therapy for his in detail, so I spoke with case management and they are going to contact the today. PCP: Chance Dispo: admit tele, inpatient PPx: heparin Code: FULL Addendum - Attending - Attending Attestation Date/Time: 09/13/19 1201 I personally evaluated the patient and discussed the management with Dr. Nava. I agree with the History, Examination, Assessment and Plan documented above with any addition or exceptions noted below. Patient with some improvement in mentation today. Suspect subacute CVA along with encephalopathy from UTI as reason for her presentation. Awaiting urine cx and sensitivities. Placement pending. Neuro on board. Usual post CVA care.
[2019-09-13 06:05] LABS: ALT (SGPT) 19 U/L (8-55); AST (SGOT) 32 U/L (5-34); Albumin 3.7 g/dL (3.4-4.8); Alkaline Phosphatase 36 U/L (40-110); Anion Gap 14 mmol/L (10-20); BUN (Urea Nitrogen) 19 mg/dL (9.8-20.1); Bilirubin, Total 0.4 mg/dL (0.2-1.2); Calc. Creatinine Clearance 64 mL/min (70-130); Calcium 9.4 mg/dL (7.8-10.44); Carbon Dioxide 25 mmol/L (23-31); Chloride 105 mmol/L (98-107); Estimated GFR-MDRD 58; Glucose 95 mg/dL (83-110); Potassium 3.9 mmol/L (3.5-5.1); Protein, Total 6.7 g/dL (6.0-8.3); Sodium 140 mmol/L (136-145)
[2019-09-13] MEDS ORDERED: Cefdinir 300 MG CAP PO SCH (09:00)
[2019-09-13] MEDS: Lactated Ringer's 1,000 ML IV SCH ×3 (09:13→22:48)
[2019-09-13] MEDS: Losartan 25 MG TAB PO SCH (09:19)
[2019-09-13] MEDS: Heparin 5,000 UNITS/ML VIAL SC SCH ×3 (09:19→21:56)
[2019-09-13] MEDS: Fenofibrate Nanocrystallized 145 MG TAB PO SCH (09:19)
[2019-09-13] MEDS: Clopidogrel Bisulfate 75 MG TAB PO SCH (09:20)
[2019-09-13] MEDS: Polyethylene Glycol 3350 17 GM Packet PO SCH (09:20)
[2019-09-13] MEDS: Pregabalin 75 MG CAP PO SCH ×2 (09:20→21:57)
[2019-09-13] MEDS: Aspirin Chewable 81 MG TAB PO SCH (09:21)
[2019-09-13] MEDS: Amlodipine 5 MG TAB PO SCH (09:21)
[2019-09-13] MEDS: Venlafaxine HCl XR 75 MG CAP PO SCH ×2 (10:09→21:57)
[2019-09-13] MEDS: metFORMIN 850 MG TAB PO SCH ×2 (10:09→21:57)
--- NOTE | 2019-09-13 12:26 | PDOC.HOSPP ---
- Subjective Encounter Date: 09/13/19 Subjective: NEUROLOGY PROGRESS NOTE Patient is alert, awake and follows commands. Head CT positive for stroke. Persistent speech deficit which is improved today. She was able to speak in a full sentence - Objective Vital Signs & Weight: Vital Signs (12 hours) Temp Pulse Pulse Resp BP BP BP 09/13/19 11:17 97.8 F 55 L 22 H 126/64 09/13/19 10:09 68 121/75 119/72 09/13/19 09:21 70 09/13/19 08:00 09/13/19 07:35 97.5 F L 70 19 137/71 09/13/19 04:37 97.7 F 68 18 134/66 Pulse Ox 09/13/19 11:17 97 09/13/19 10:09 09/13/19 09:21 09/13/19 08:00 97 09/13/19 07:35 97 09/13/19 04:37 94 L Weight Admit Weight 166 lb 4 oz Weight 166 lb 4 oz I&O: 09/12/19 09/13/19 09/14/19 06:59 06:59 06:59 Intake Total 3066 1784 180 Output Total 3250 1500 Balance -184 284 180 Result Diagrams: 09/13/19 04:49 09/13/19 04:49 Additional Labs: Accuchecks 09/13/19 09/13/19 09/12/19 10:44 06:14 21:54 POC Glucose 152 H 98 112 H 09/12/19 17:05 POC Glucose 92 Radiology Reviewed by me: Yes EKG Reviewed by me: Yes Hospitalist ROS - Review of Systems ROS unobtainable: due to mental status Eyes: denies: pain, vision change, conjunctivae inflammation, eyelid inflammation, redness, other ENT: denies: ear pain, ear discharge, nose pain, nose discharge, nose congestion , mouth pain, mouth swelling, throat pain, throat swelling, other Respiratory: denies: cough, dry, shortness of breath, hemoptysis, SOB with excertion, pleuritic pain, sputum, wheezing, other Cardiovascular: denies: chest pain, palpitations, orthopnea, paroxysmal noc. dyspnea, edema, light headedness, other Gastrointestinal: denies: nausea, vomiting, abdominal pain, diarrhea, constipation, melena, hematochezia, other Musculoskeletal: denies: neck pain, shoulder pain, arm pain, back pain, hand pain, leg pain, foot pain, other Skin: denies: rash, lesions, mara, bruising, other Neurological: reports: change in speech - Medication Medications: Active Medications Generic Name Dose Route Start Last Admin Trade Name Freq PRN Reason Stop Dose Admin Amlodipine Besylate 10 mg 09/12/19 09:00 09/13/19 09:21 Norvasc PO 10 mg DAILY NATHANIEL Administration Aspirin 81 mg 09/12/19 09:00 09/13/19 09:21 Aspirin Chewable PO 81 mg DAILY NATHANIEL Administration Atorvastatin Calcium 40 mg 09/11/19 21:00 09/12/19 21:49 Lipitor PO 40 mg HS [facility] Administration Cefdinir 300 mg 09/13/19 09:00 09/13/19 09:20 Omnicef PO 300 mg BID NATHANIEL Administration Clopidogrel Bisulfate 75 mg 09/12/19 09:00 09/13/19 09:20 Plavix PO 75 mg DAILY [facility] Administration Fenofibrate 145 mg 09/12/19 09:00 09/13/19 09:19 Tricor PO 145 mg DAILY [facility] Administration Heparin Sodium (Porcine) 5,000 units 09/10/19 21:00 09/13/19 09:19 Heparin SC 5,000 units TID [facility] Administration Lactated Ringer's 1,000 mls @ 110 mls/hr 09/10/19 18:30 09/13/19 09:13 Lactated Ringer's IV Not Given .Q9H6M [facility] Insulin Human Lispro 0 units 09/10/19 18:08 09/13/19 11:47 Humalog SC 2 unit .MILD SLIDING SCALE PRN Administration Mild Correctional Scale Levothyroxine Sodium 25 mcg 09/12/19 06:00 09/13/19 05:00 Synthroid PO 25 mcg 0600 [facility] Administration Losartan Potassium 100 mg 09/12/19 09:00 09/13/19 09:19 Cozaar PO 100 mg DAILY [facility] Administration Metformin HCl 850 mg 09/11/19 21:00 09/13/19 10:09 Glucophage PO 850 mg BID [facility] Administration Metoprolol Succinate 50 mg 09/12/19 09:00 09/13/19 09:19 Toprol Xl PO 50 mg DAILY [facility] Administration Polyethylene Glycol 17 gm 09/11/19 09:00 09/13/19 09:20 Miralax PO 17 gm DAILY NATHANIEL Administration Pregabalin 75 mg 09/11/19 21:00 09/13/19 09:20 Lyrica PO 75 mg BID NATHANIEL Administration Venlafaxine HCl 75 mg 09/11/19 21:00 09/13/19 10:09 Effexor Xr PO 75 mg BID NATHANIEL Administration - Exam General Appearance: awake alert Eye: PERRL ENT: normocephalic atraumatic Neck: supple Heart: RRR Respiratory: CTAB Gastrointestinal: soft Extremities: no cyanosis Skin: normal turgor Neurological: no new deficit, speech deficit Musculoskeletal: normal tone, no muscle wasting Psychiatric: normal affect, normal behavior, A&O x 3 Hosp A/P (1) CVA (cerebral vascular accident) Code(s): I63.9 - CEREBRAL INFARCTION, UNSPECIFIED Status: Chronic Qualifiers: CVA mechanism: thrombosis Precerebral and cerebral artery: unspecified cerebral artery Qualified Code(s): I63.30 - Cerebral infarction due to thrombosis of unspecified cerebral artery (2) Type II diabetes mellitus Status: Acute (3) Diabetes 1.5, managed as type 2 Code(s): E13.9 - OTHER SPECIFIED DIABETES MELLITUS WITHOUT COMPLICATIONS Status: Chronic - Plan PT/OT, speech therapy 73 year old presented with altered mental status and speech deficit. Imaging positive for acute stroke. Aphasia improved today . Recent Head CT positive for subacute left frontal lobe infarct. Initial CT Head and CTA reviewed which were both negative for acute processes Unable to get MRI due to pacemaker Continue ASA and statin for secondary stroke prevention. EEG did not show any seizure activity. Telemetry. ECHO 55-60 %. No thrombus or PFO. PT/OT/Speech Continue home medications. Continue medical management per primary team. Plan discussed with patient and floor team during MDR rounds.
[2019-09-13] MEDS: Sulfameth/Trimethoprim DS 800-160mg TAB PO SCH (21:57)
[2019-09-13] MEDS: Atorvastatin Calcium 40 MG TAB PO SCH (21:57)
--- NOTE | 2019-09-14 05:37 | PDOC.FM ---
- Subjective Subjective: Pt is a 73 yo F with a PMH of multiple CVAs, DM 1, HLD, HTN, hypothyroidism, and [place] s/p packemaker who presented with R sided weakness in the setting of encephalopathy 2/2 new CVA and AMS in the setting of UTI. Overnight, no acute events. Patient is resting comfortably in bed. She is alert and oriented to person and time. She knows she is in a hospital but does not know what city. She has no complaints. Denies MCCLELLAN, CP, SOB, dysuria, frequency, subrapubic pain, new onset weakness or numbness. - Objective MAR Reviewed: Yes Vital Signs & Weight: Vital Signs (12 hours) Temp Pulse Resp BP Pulse Ox 09/14/19 03:43 97.6 F 68 20 119/77 98 09/14/19 00:22 98.4 F 61 111/65 95 09/13/19 21:00 99.0 F 69 121/61 95 Weight Admit Weight 75.41 kg Weight 75.41 kg I&O: 09/12/19 09/13/19 09/14/19 06:59 06:59 06:59 Intake Total 3066 1784 520 Output Total 3250 1500 550 Balance -184 284 -30 Result Diagrams: 09/14/19 07:00 09/14/19 07:00 Phys Exam - Physical Examination Constitutional: NAD HEENT: sclera anicteric Neck: full ROM Respiratory: no wheezing, clear to auscultation bilateral Cardiovascular: RRR systolic murmur noted Gastrointestinal: soft, non-tender, positive bowel sounds Musculoskeletal: no edema, pulses present Neurological: moves all 4 limbs (right facial droop. 2/5 strength in RUE and LLE. Follows commands without difficulty. Sensation normal in all extremities.) Psychiatric: normal affect Skin: no rash, normal turgor Dx/Plan - Plan Plan: Encephalopathy likely 2/2 new CVA: - intital CTH and CTA both negative for acute processes - cannot get MRI due to pacemaker which is MRI not compatible - PT, OT, speech on board - repeat heat CT showed subacute infarct of medial left frontal lobe (09/11) - ECHO sowed EF 55-60% with diastolic dysfunction and moderate to severe aortic stenosis - CTA Angio neck results pending - Dr. Vee, neuro on board, appreciate the recs AMS likely 2/2 UTI - EEG done as per neuro, showed mild generalized nonspecific cerebral dysfunction - will continue to work to reorient patient - positive nitrites, 250 leuks, 3+ bacteria - Rocephin stopped and switch to PO Omnicef 2/2 infiltrated IV (09/12) - switched to PO Bactrim 2/2 sensitivities (09/12) Hypokalemia potassium today is 3.4, will replace -continue to monitor JARED - likely pre renal, +ketones on UA - Cr today 1.09 - d/c IVF (09/11) patient is tolerating PO, encourage PO intake - monitor I/O Elevated Troponin no CP, SOB - Trops stable .04, .038, .044, .034 - patient has a history of elevated troponins DM - A1c 5.0 - Humalog moderate SSI CAD: History of [place] s/p pacemaker placement - Aware, will continue home meds HLD - Aware, will continue home meds HTN - Aware, will continue home meds Hypohyroid: - Aware, will continue home meds HLD - Aware, will continue home meds Case management on board, appreciate the help. Plan is for patient to [facility] as per husbands first choice. If denied, would like patient to go back to [place] with hopes of going back home after rehab. PCP: [facility] Dispo: admit tele, inpatient PPx: heparin Code: FULL Addendum - Attending - Attending Attestation Date/Time: 09/14/19 3346 I personally evaluated the patient and discussed the management with Dr. Nava. I agree with the History, Examination, Assessment and Plan documented above with any addition or exceptions noted below. Patient with continued improved mentation and speech this morning. Continue usual post CVA care, including therapy. Neuro on board. She will also be started on Bactrim for her UTI that we anticipate contributed to her encephalopathy. Working on post acute care disposition, likely SNF.
[2019-09-14] MEDS: Levothyroxine Sodium 25 MCG TAB PO SCH (06:13)
[2019-09-14 07:12] LABS: #Eosinphils 0.3 thou/uL (0.0-0.7); #Lymphocytes 4.4 thou/uL (1.20-3.40); #Monocytes 0.8 thou/uL (0.11-0.59); #Neutrophils 4.3 thou/uL (1.40-6.50); %Basophils 0.5 % (0.0-1.0); %Eosinophils 2.6 % (0.0-10.0); %Lymphocytes 44.6 % (21.0-51.0); %Monocytes 8.4 % (0.0-10.0); Hemoglobin 10.3 g/dL (12.0-16.0); Mean Corpuscular HGB CONC 32.8 g/dL (32.0-36.0); Mean Corpuscular Hemoglobin 28.9 pg (27.0-31.0); Mean Corpuscular Volume 88.2 fL (78.0-98.0); Mean Platelet Volume 9.1 fL (7.4-10.4); Platelet Count 231 thou/uL (130-400); RBC Distribution Width 13.6 % (11.5-14.5); Red Blood Cell (RBC) Count 3.57 mill/uL (4.20-5.40); White Blood Cell (WBC) Count 9.8 thou/uL (4.8-10.8)
[2019-09-14 07:30] LABS: ALT (SGPT) 18 U/L (8-55); AST (SGOT) 27 U/L (5-34); Albumin 3.4 g/dL (3.4-4.8); Alkaline Phosphatase 34 U/L (40-110); Anion Gap 14 mmol/L (10-20); BUN (Urea Nitrogen) 27 mg/dL (9.8-20.1); Bilirubin, Total 0.3 mg/dL (0.2-1.2); Calc. Creatinine Clearance 56 mL/min (70-130); Calcium 9.1 mg/dL (7.8-10.44); Carbon Dioxide 22 mmol/L (23-31); Chloride 107 mmol/L (98-107); Estimated GFR-MDRD 49; Globulin 2.8 g/dL (2.4-3.5); Glucose 99 mg/dL (83-110); Potassium 3.4 mmol/L (3.5-5.1); Protein, Total 6.2 g/dL (6.0-8.3); Sodium 140 mmol/L (136-145)
[2019-09-14] MEDS ORDERED: Potassium Chloride 20 MEQ TAB PO SCH (09:00)
[2019-09-14] MEDS: Clopidogrel Bisulfate 75 MG TAB PO SCH (09:22)
[2019-09-14] MEDS: Polyethylene Glycol 3350 17 GM Packet PO SCH (09:22)
[2019-09-14] MEDS: Pregabalin 75 MG CAP PO SCH ×2 (09:23→20:27)
[2019-09-14] MEDS: Losartan 25 MG TAB PO SCH (09:25)
[2019-09-14] MEDS: Venlafaxine HCl XR 75 MG CAP PO SCH ×2 (09:25→20:28)
[2019-09-14] MEDS: metFORMIN 850 MG TAB PO SCH ×2 (09:25→20:28)
[2019-09-14] MEDS: Amlodipine 5 MG TAB PO SCH (09:26)
[2019-09-14] MEDS: Sulfameth/Trimethoprim DS 800-160mg TAB PO SCH ×2 (09:26→20:28)
[2019-09-14] MEDS: Fenofibrate Nanocrystallized 145 MG TAB PO SCH (09:26)
[2019-09-14] MEDS: Heparin 5,000 UNITS/ML VIAL SC SCH ×3 (09:27→20:28)
[2019-09-14] MEDS: Aspirin Chewable 81 MG TAB PO SCH (09:27)
--- NOTE | 2019-09-14 12:29 | PDOC.HOSPP ---
- Subjective Encounter Date: 09/14/19 Subjective: NEUROLOGY PROGRESS NOTE Patient is alert, awake and follows commands. Head CT positive for stroke. Clinical improvement in peech deficit . She was able to speak in a full sentences. - Objective Vital Signs & Weight: Vital Signs (12 hours) Temp Pulse Resp BP Pulse Ox 09/14/19 11:36 97.9 F 67 22 H 131/69 97 09/14/19 09:26 64 09/14/19 08:00 97 09/14/19 07:20 97.3 F L 64 17 114/73 97 09/14/19 03:43 97.6 F 68 20 119/77 98 Weight Admit Weight 166 lb 4 oz Weight 166 lb 4 oz I&O: 09/13/19 09/14/19 09/15/19 06:59 06:59 06:59 Intake Total 1784 520 240 Output Total 1500 950 Balance 284 -430 240 Result Diagrams: 09/14/19 07:00 09/14/19 07:00 Additional Labs: Accuchecks 09/14/19 09/14/19 09/13/19 10:42 05:55 19:52 POC Glucose 116 H 101 126 H 09/13/19 16:34 POC Glucose 118 H Radiology Reviewed by me: Yes EKG Reviewed by me: Yes Hospitalist ROS - Review of Systems Constitutional: denies: fever, chills, sweats, weakness, malaise, other Eyes: denies: pain, vision change, conjunctivae inflammation, eyelid inflammation, redness, other ENT: denies: ear pain, ear discharge, nose pain, nose discharge, nose congestion , mouth pain, mouth swelling, throat pain, throat swelling, other Respiratory: denies: cough, dry, shortness of breath, hemoptysis, SOB with excertion, pleuritic pain, sputum, wheezing, other Cardiovascular: denies: chest pain, palpitations, orthopnea, paroxysmal noc. dyspnea, edema, light headedness, other Gastrointestinal: denies: nausea, vomiting, abdominal pain, diarrhea, constipation, melena, hematochezia, other Genitourinary: denies: dysuria, frequency, incontinence, hematuria, retention, other Musculoskeletal: denies: neck pain, shoulder pain, arm pain, back pain, hand pain, leg pain, foot pain, other Neurological: reports: change in speech. denies: weakness, numbness, incoordination, confusion, seizures, other - Medication Medications: Active Medications Generic Name Dose Route Start Last Admin Trade Name Henrry PRN Reason Stop Dose Admin Amlodipine Besylate 10 mg 09/12/19 09:00 09/14/19 09:26 Norvasc PO 10 mg DAILY NATHANIEL Administration Aspirin 81 mg 09/12/19 09:00 09/14/19 09:27 Aspirin Chewable PO 81 mg DAILY NATHANIEL Administration Atorvastatin Calcium 40 mg 09/11/19 21:00 09/13/19 21:57 Lipitor PO 40 mg HS NATHANIEL Administration Clopidogrel Bisulfate 75 mg 09/12/19 09:00 09/14/19 09:22 Plavix PO 75 mg DAILY NATHANIEL Administration Fenofibrate 145 mg 09/12/19 09:00 09/14/19 09:26 Tricor PO 145 mg DAILY NATHANIEL Administration Heparin Sodium (Porcine) 5,000 units 09/10/19 21:00 09/14/19 09:27 Heparin SC 5,000 units TID NATHANIEL Administration Insulin Human Lispro 0 units 09/10/19 18:08 09/13/19 11:47 Humalog SC 2 unit .MILD SLIDING SCALE PRN Administration Mild Correctional Scale Levothyroxine Sodium 25 mcg 09/12/19 06:00 09/14/19 06:13 Synthroid PO 25 mcg 0600 NATHANIEL Administration Losartan Potassium 100 mg 09/12/19 09:00 09/14/19 09:25 Cozaar PO 100 mg DAILY NATHANIEL Administration Metformin HCl 850 mg 09/11/19 21:00 09/14/19 09:25 Glucophage PO 850 mg BID NATHANEIL Administration Metoprolol Succinate 50 mg 09/12/19 09:00 09/14/19 09:27 Toprol Xl PO 50 mg DAILY NATHANIEL Administration Polyethylene Glycol 17 gm 09/11/19 09:00 09/14/19 09:22 Miralax PO 17 gm DAILY NATHANIEL Administration Pregabalin 75 mg 09/11/19 21:00 09/14/19 09:23 Lyrica PO 75 mg BID NATHANIEL Administration Trimethoprim/Sulfamethoxazole 1 tab 09/13/19 21:00 09/14/19 09:26 Bactrim Ds PO 09/16/19 10:00 1 tab BID NATHANIEL Administration Venlafaxine HCl 75 mg 09/11/19 21:00 09/14/19 09:25 Effexor Xr PO 75 mg BID NATHANIEL Administration - Exam General Appearance: awake alert Eye: PERRL ENT: normocephalic atraumatic Neck: supple Heart: RRR Respiratory: CTAB Gastrointestinal: soft Extremities: no cyanosis Skin: normal turgor Neurological: no new deficit, speech deficit Musculoskeletal: no muscle wasting Psychiatric: normal affect, normal behavior, A&O x 3, oriented to person, oriented to time Hosp A/P (1) CVA (cerebral vascular accident) Code(s): I63.9 - CEREBRAL INFARCTION, UNSPECIFIED Status: Chronic Qualifiers: CVA mechanism: thrombosis Precerebral and cerebral artery: unspecified cerebral artery Qualified Code(s): I63.30 - Cerebral infarction due to thrombosis of unspecified cerebral artery (2) Type II diabetes mellitus Status: Acute (3) Diabetes 1.5, managed as type 2 Code(s): E13.9 - OTHER SPECIFIED DIABETES MELLITUS WITHOUT COMPLICATIONS Status: Chronic - Plan PT/OT, speech therapy, DVT proph w/lovenox 73 year old presented with altered mental status and speech deficit. Imaging positive for acute stroke. Aphasia improving.Speech on board Continue home medications. Continue medical management per primary team. Continue home medications. Continue medical management per primary team. PT/OT Head CT positive for subacute left frontal lobe infarct. Initial CT Head and CTA reviewed which were both negative for acute processes Unable to get MRI due to pacemaker EEG did not show any seizure activity. Telemetry. ECHO 55-60 %. No thrombus or PFO. Plan discussed with patient and the primary team
--- NOTE | 2019-09-14 15:06 | PQF ---
DATE: 09-14-19 ATTN: DR. ANGELA FAUST Please exercise your independent, professional judgment in responding to the clarification form. Clinical indicators are provided on the bottom of this form for your review Please check appropriate box(s): [ x] Encephalopathy: Type: [ x] Acute [ ] Subacute [ ] Chronic Etiology: [ ] Metabolic [ x] due to CVA [ ] Other (please specify) [ ] Transient Alteration of Awareness [ ] Other diagnosis [ ] Unable to determine In addition, please specify: Present on Admission (POA): [ x] Yes [ ] No [ ] Unable to determine For continuity of documentation, please document condition throughout progress notes and discharge summary. Thank You. CLINICAL INDICATORS - SIGNS / SYMPTOMS / LABS / RESULTS AND LOCATION IN EMR: H&P 09-10-19: ENCEPHALOPATHY 2/2 NEW/EVOLVING CVA, JARED, DM PN DR. FAUST 09-11-19: PRESENTED WITH R SIDED WEAKNESS IN THE SETTING OF ENCEPHALOPATHY 2/2 NEW CVA ABD AMS IN THE STETTING OF UTI. RISK FACTORS / RESULTS AND LOCATION IN EMR: PN DR. FAUST 09-11-19: PRESENTED WITH R SIDED WEAKNESS IN THE SETTING OF ENCEPHALOPATHY 2/2 NEW CVA ABD AMS IN THE STETTING OF UTI. TREATMENTS / RESULTS AND LOCATION IN EMR: ER NOTES 09-10-19: ASA PO NEUROLOGY CONSULT 09-13-19 MAR: 09-10-19: HEPARIN SC, LR IVF 09-10-19 (This form is maintained as a part of the permanent medical record) 2014 [employer], [employer]. All Rights Reserved [email or web address] [facility]
[2019-09-14] MEDS: Atorvastatin Calcium 40 MG TAB PO SCH (20:28)
[2019-09-15] MEDS: Levothyroxine Sodium 25 MCG TAB PO SCH (05:46)
--- NOTE | 2019-09-15 06:05 | PDOC.FM ---
- Subjective Subjective: Pt is a 73 yo F with a PMH of multiple CVAs, DM 1, HLD, HTN, hypothyroidism, and SD s/p packemaker who presented with R sided weakness in the setting of acute encephalopathy 2/2 new CVA and AMS in the setting of UTI. Overnight, no acute events. Today, patient is resting comfortably in bed and seems to be at her baseline. Alert and oriented to person, time, and knows she is in a hospital but is unsure what city. Aphasia has improved since admission. No complaints. - Objective MAR Reviewed: Yes Vital Signs & Weight: Vital Signs (12 hours) Temp Pulse Resp BP Pulse Ox 09/15/19 04:00 98.4 F 59 L 18 120/62 94 L 09/15/19 00:00 98.0 F 61 18 124/64 94 L 09/14/19 19:30 97.6 F 64 18 119/65 99 Weight Admit Weight 75.41 kg Weight 75.41 kg I&O: 09/13/19 09/14/19 09/15/19 06:59 06:59 06:59 Intake Total 1784 520 910 Output Total 1500 950 Balance 284 -430 910 Result Diagrams: 09/14/19 07:00 09/14/19 13:20 Phys Exam - Physical Examination Constitutional: NAD HEENT: sclera anicteric Neck: full ROM Respiratory: no wheezing, clear to auscultation bilateral Cardiovascular: RRR, no significant murmur Gastrointestinal: soft, non-tender, positive bowel sounds Musculoskeletal: no edema, pulses present Neurological: moves all 4 limbs facial droop on the right side. 2/5 strength in RLE and RUE. Psychiatric: normal affect Deviation from normal: see HPI for details on orientation. patient is alert. Skin: no rash, normal turgor Dx/Plan - Plan Plan: Acute encephalopathy likely 2/2 new CVA: - intital CTH and CTA both negative for acute processes - cannot get MRI due to pacemaker which is MRI not compatible - PT, OT, speech on board - repeat heat CT showed subacute infarct of medial left frontal lobe (09/11) - ECHO sowed EF 55-60% with diastolic dysfunction and moderate to severe aortic stenosis - CTA Angio neck results pending - Dr. Vee, neuro on board, appreciate the recs AMS likely 2/2 UTI, resolved - EEG done as per neuro, showed mild generalized nonspecific cerebral dysfunction - positive nitrites, 250 leuks, 3+ bacteria - Rocephin stopped and switch to PO Omnicef 2/2 infiltrated IV (09/12) - switched to PO Bactrim 2/2 sensitivities (09/12) Hypokalemia, resolved potassium was 3.4 -repeat was 4.0 after replacement JARED - likely pre renal, +ketones on UA - d/c IVF (09/11) patient is tolerating PO, encourage PO intake - monitor I/O Elevated Troponin no CP, SOB - Trops stable .04, .038, .044, .034 - patient has a history of elevated troponins DM - A1c 5.0 - Humalog moderate SSI CAD: History of SD s/p pacemaker placement - Aware, will continue home meds HLD - Aware, will continue home meds HTN - Aware, will continue home meds Hypohyroid: - Aware, will continue home meds HLD - Aware, will continue home meds Case management on board, appreciate the help. Plan is for patient to go to rehab at [facility] as per husbands first choice. If denied, would like patient to go back to [place] with hopes of going back home after rehab. PCP: Chance Dispo: admit tele, inpatient PPx: heparin Code: FULL Addendum - Attending - Attending Attestation Date/Time: 09/15/19 1572 I personally evaluated the patient and discussed the management with Dr. Nava. I agree with the History, Examination, Assessment and Plan documented above with any addition or exceptions noted below. Patient overall stable. Has been approved for rehab due to her acute encephalopathy and speech issues from new CVA. She is stable for dc today.
[2019-09-15 08:05] VITALS: TEMP 97.5
[2019-09-15] MEDS: Heparin 5,000 UNITS/ML VIAL SC SCH ×2 (10:25→16:51)
[2019-09-15] MEDS: Aspirin Chewable 81 MG TAB PO SCH (10:26)
[2019-09-15] MEDS: Losartan 25 MG TAB PO SCH (10:26)
[2019-09-15] MEDS: Amlodipine 5 MG TAB PO SCH (10:26)
[2019-09-15] MEDS: Clopidogrel Bisulfate 75 MG TAB PO SCH (10:26)
[2019-09-15] MEDS: Venlafaxine HCl XR 75 MG CAP PO SCH (10:27)
[2019-09-15] MEDS: Pregabalin 75 MG CAP PO SCH (10:27)
[2019-09-15] MEDS: metFORMIN 850 MG TAB PO SCH (10:27)
[2019-09-15] MEDS: Polyethylene Glycol 3350 17 GM Packet PO SCH (10:27)
[2019-09-15] MEDS: Sulfameth/Trimethoprim DS 800-160mg TAB PO SCH (10:27)
[2019-09-15] MEDS: Fenofibrate Nanocrystallized 145 MG TAB PO SCH (10:27)
[2019-09-15 11:57] VITALS: BP 144/67
--- NOTE | 2019-09-16 01:04 | DIS ---
DATE OF ADMISSION: 09/10/2019 DATE OF DISCHARGE: 09/15/2019 RESIDENT: Jordana Nava MD ADMITTING ATTENDING: Pedro Fletcher MD DISCHARGE ATTENDING: Arley Sutton MD CONSULTS: 1. Case Management. 2. Neurology. 3. Palliative Care. 4. OT. 5. PT. 6. Speech. 7. Wound care. IMAGING DATA: Includes brain CT, chest x-ray, CT angio of the [place] [facility] [place] , all of which were negative for acute changes. Echo was done which showed EF 55 -60% with diastolic dysfunction and moderate to severe aortic stenosis. Repeat brain CT showed subacute infarct of the medial left frontal lobe. PRIMARY DIAGNOSES: Acute encephalopathy secondary to new CVA. SECONDARY DIAGNOSES: 1. Altered mental status likely secondary to urinary tract infection, resolved. 2. Hypokalemia, resolved. 3. Acute kidney injury, resolved. 4. Elevated troponin. 5. Diabetes. 6. Coronary artery disease, status post pacemaker placement. 7. Hyperlipidemia. 8. Hypertension. 9. Hypothyroidism. DISCHARGE MEDICATIONS: Bactrim p.o. b.i.d., albuterol sulfate 8.5 g one puff every 4 hours as needed, aspirin 81 mg daily, atorvastatin 40 mg QHS, fenofibrate 145 mg daily, Humalog 5 to 10 units b.i.d., Levemir 30 units at 1800 , levothyroxine 25 mcg, losartan 100 mg daily, metformin 850 mg b.i.d., metoprolol 50 mg daily, Lyrica 75 mg b.i.d., Effexor 75 mg b.i.d., amlodipine 10 mg daily, Plavix 75 mg daily. Discontinued medications: None. HISTORY OF PRESENT ILLNESS/HOSPITAL COURSE: The patient is a 73-year-old female with a past medical history of multiple CVAs; diabetes; hyperlipidemia; hypertension; hypothyroidism; and MA, status post pacemaker, who presented to the ER with right-sided weakness in the setting of acute encephalopathy secondary to new CVA and altered mental status in the setting of UTI. The patient was admitted about 1 month ago with similar complaints. The patient was altered, alert and oriented x0 and had worsening right-sided weakness and aphasia. The right-sided weakness and aphasia improved over the course of hospitalization and patient was altered until treatment started for UTI. Of note, patient does have baseline right sided weakness from previous stroke. Patient's UA showed positive nitrite, 250 leukocytes, and 3+ bacteria. The patient was initially placed on Rocephin and urine culture was sent and patient was switched to p.o. Bactrim when sensitivities and culture returned, which showed E. coli growth that was sensitive to Bactrim. Neuro was consulted along with Palliative Care. Neuro ordered a repeat CT since patient's pacemaker is incompatible with MRI to look for any changes as initial CT head in the ER was negative. Repeat head CT showed subacute infarct of the medial left frontal lobe which is consistent with her symptoms, which were secondary to a new stroke. Patient's creatinine in the ED was elevated and she was started on IV fluids and her creatinine trended down. Etiology was likely prerenal as patient had ketones on UA. Patient was also found to have elevated troponins in the ED. She does have a history of elevated troponins. They were trended and were stable at 0.04, 0.038, 0.044, and 0.034. For her diabetes, patient was given Humalog, moderate sliding scale insulin, and was continued on her home metformin. Her home medications were also continued for her coronary artery disease, hyperlipidemia, hypertension, and hypothyroidism. The patient worked with PT and OT during hospitalization, which recommended that she would benefit from some type of rehab and Speech was also consulted because of patient's past history of stroke and dysphagia. DISPOSITION: Stable. DISCHARGE INSTRUCTIONS: 1. Location: . 2. Diet: Diabetic diet, pureed thin liquids as recommended by Speech. 3. Activity: As tolerated, but of note patient is a fall risk and has residual right-sided weakness from her previous stroke, so she will need to be supervised with activities. 4. Followup: Patient is encouraged to follow up with her PCP in 3 to 4 weeks. Job ID: [id number] [address] HOSPITALGunnar
== END 2019-09-15 17:58 | DRG 65 ==
LOC: ERS 13:36 → 2SE 16:00 → OBSVTOIN 09-11 18:12
PROVIDERS: ADMIT Family Medicine; ATTEND Family Medicine
PROC: 4A10X4Z Monitoring of Central Nervous Electrical Activity, External Approach (ICD-10-PCS; principal; 2019-09-11)
DX: I63.30 Cerebral infarction due to thrombosis of unspecified cerebral artery (principal); I69.351 Hemiplegia and hemiparesis following cerebral infarction affecting right dominant side; G93.49 Other encephalopathy; N17.9 Acute kidney failure, unspecified; N39.0 Urinary tract infection, site not specified; E03.9 Hypothyroidism, unspecified; E10.22 Type 1 diabetes mellitus with diabetic chronic kidney disease; N18.2 Chronic kidney disease, stage 2 (mild); I12.9 Hypertensive chronic kidney disease with stage 1 through stage 4 chronic kidney disease, or unspecified chronic kidney disease; E78.5 Hyperlipidemia, unspecified; F01.50 Vascular dementia, unspecified severity, without behavioral disturbance, psychotic disturbance, mood disturbance, and anxiety; I25.10 Atherosclerotic heart disease of native coronary artery without angina pectoris; R29.707 NIHSS score 7; R47.01 Aphasia; L89.152 Pressure ulcer of sacral region, stage 2; B96.20 Unspecified Escherichia coli [E. coli] as the cause of diseases classified elsewhere; E87.6 Hypokalemia; Z95.0 Presence of cardiac pacemaker; Z79.890 Hormone replacement therapy; Z88.8 Allergy status to other drugs, medicaments and biological substances; Z91.041 Radiographic dye allergy status; Z79.82 Long term (current) use of aspirin; Z79.51 Long term (current) use of inhaled steroids; Z79.4 Long term (current) use of insulin; Z79.899 Other long term (current) drug therapy; I25.2 Old myocardial infarction
CPT/HCPCS: 36415; 36416; 70450; 70496; 70498; 71045; 80048; 80053; 80061; 81001; 82140; 82550; 82553; 82728; 83036; 83615; 83880; 84145; 84443; 84484; 85025; 85610; 85730; 86140; 87077; 87086; 87186; 93005; 93306; 95712; 95816; 95819; 95957; 96374; 96375; J0696; J1200; J1644; J1720; J2930; J3490; Q9967; S0028

== ENCOUNTER 2019-11-24 23:22 | Emergency (ER) | payer MEDICARE ==
[2019-11-25] MEDS ORDERED: Magnesium Citrate 300 ML BOT ONE (01:51)
--- NOTE | 2019-11-26 11:31 | CT ---
PRELIMINARY REPORT/[facility]/EMERGENCY AFTER HOURS PROCEDURE: EXAM: CT Abdomen and Pelvis Without Intravenous Contrast CLINICAL HISTORY: Patient presents via EMS due to lack of bowel movement for 1 week. She complains of left lower quadrant and suprapubic pain. She has had no nausea, vomiting, fever, or urinary complain ts. Surgical history of hysterectomy. *Pt is allergic to IV contrast TECHNIQUE: Axial computed tomography images of the abdomen and pelvis without intravenous contrast. CONTRAST: None. COMPARISON: None provided. FINDINGS: LUNG BASES: 7 mm pulmonary nodule in the right middle lobe. No effusion or basilar consolidation seen . Extensive cardiac calcifications noted. Pacer leads partially visualized. LIVER: Unremarkable. GALLBLADDER AND BILE DUCTS: Unremarkable. No calcified stone. No ductal dilation. PANCREAS: Unremarkable. SPLEEN: Unremarkable. ADRENAL GLANDS: Unremarkable. KIDNEYS, URETERS, AND BLADDER: Nonobstructing left-sided nephrolith. No stones identified within the right kidney, either ureter or bladder. STOMACH AND BOWEL: Large amount of stool is seen in the rectum and distal sigmoid colon. There is mil d inflammation seen about the rectum. No abnormal colonic wall thickening or diverticular disease. No small bowel wall thickening or obstruction. APPENDIX: No CT evidence for appendicitis. PERITONEUM: No free fluid. No free air. LYMPH NODES: No lymphadenopathy. REPRODUCTIVE: Patient is status post hysterectomy. VASCULATURE: No aortic aneurysm. ABDOMINAL WALL AND SOFT TISSUES: Unremarkable. BONES: No acute or aggressive skeletal abnormality seen. Degenerative changes are present throughout the spine, pelvis and hips. IMPRESSION: Large stool burden within the rectum and sigmoid suggesting constipation with possible im paction. Mild inflammation of the perirectal fat noted. No other acute intra-abdominopelvic findings . ELECTRONICALLY SIGNED BY: Laurent Betancur DO Nov 25, 2019 1:06:27 AM CDT FINAL REPORT EMERGENT AFTERHOURS NONCONTRAST CT ABDOMEN AND PELVIS: 11/25/19 HISTORY: Lack of bowel movement. Left lower quadrant and suprapubic abdominal pain. FINDINGS: 1. 7 mm pulmonary nodule right upper lobe along the minor fissure unchanged compared to prior [facility]. Follow-up CT thorax in six months is recommended. 2. Moderate amount of retained fecal material seen throughout the colon suggesting constipation. There is inflammatory stranding seen in a perirectal location. Findings could be related to stercora l colitis. 3. Prominent vascular calcifications. 4. Mild cardiomegaly. cardiac pacemaking leads are seen. 5. No renal or ureteral calculi seen bilaterally. 6. Rounded areas of decreased attenuation in the subcutaneous soft tissues which may be related to prior injections in the subcutaneous soft tissues. Clinical correlation suggested. 7. Findings in agreement with preliminary report by [facility]. Code T POS: TIFFANIE
== END 2019-11-25 03:22 | disposition home or self-care (01) ==
LOC: ERS 23:22
DX: K59.00 Constipation, unspecified (principal); I10 Essential (primary) hypertension; E11.9 Type 2 diabetes mellitus without complications; E78.5 Hyperlipidemia, unspecified; I49.9 Cardiac arrhythmia, unspecified; Z86.73 Personal history of transient ischemic attack (TIA), and cerebral infarction without residual deficits; Z79.4 Long term (current) use of insulin; Z79.899 Other long term (current) drug therapy; Z79.82 Long term (current) use of aspirin
CPT/HCPCS: 74176

== ENCOUNTER 2019-12-06 18:19 | Emergency (ER) | payer MEDICARE ==
--- NOTE | 2019-12-06 20:22 | RAD ---
XR Knee Lt 4 View STANDARD HISTORY: Fall, left knee pain FINDINGS: No fracture or dislocation is identified.
--- NOTE | 2019-12-06 20:42 | RAD ---
LEFT ELBOW FOUR VIEWS: 12/06/19 HISTORY: Pain. Fall. FINDINGS: Preserved joint spaces. No fracture or malalignment. No joint effusion. IMPRESSION: No fracture. POS: PPP
--- NOTE | 2019-12-06 20:45 | RAD ---
EXAM: LEFT HAND FOUR VIEWS: 12/06/19 HISTORY: Fall. Pain. FINDINGS: There appears to be a fracture involving the triquetrum bone best appreciated on the AP projection. C orrelate for point tenderness. No additional fractures, cortical irregularity or periosteal reaction. IMPRESSION: Probable triquetral fracture. Correlate for point tenderness. POS: PPP
--- NOTE | 2019-12-06 20:46 | RAD ---
TWO VIEWS LEFT FOREARM: 12/06/19 HISTORY: Fall. Pain. FINDINGS: No fracture, cortical irregularity or periosteal reaction. IMPRESSION: No fracture. POS: PPP
--- NOTE | 2019-12-06 21:22 | RAD ---
RIGHT SHOULDER THREE VIEWS: 12/06/19 HISTORY: Pain and injury. FINDINGS: Glenohumeral joint space is preserved. No fracture or dislocation. Visualized right lung and ribs are unremarkable. IMPRESSION: No posttraumatic change in the right shoulder. POS: PPP
[2019-12-06] MEDS ORDERED: Ibuprofen 200 MG TAB ONE (22:08)
== END 2019-12-06 22:56 | disposition home or self-care (01) ==
LOC: ERS 18:19
DX: S62.112A Displaced fracture of triquetrum [cuneiform] bone, left wrist, initial encounter for closed fracture (principal); I10 Essential (primary) hypertension; E11.9 Type 2 diabetes mellitus without complications; Z86.73 Personal history of transient ischemic attack (TIA), and cerebral infarction without residual deficits; E78.5 Hyperlipidemia, unspecified; Z79.82 Long term (current) use of aspirin; Z79.51 Long term (current) use of inhaled steroids; Z79.4 Long term (current) use of insulin; Z79.899 Other long term (current) drug therapy; W18.30XA Fall on same level, unspecified, initial encounter
CPT/HCPCS: 29125

== ENCOUNTER 2020-03-15 10:25 | Inpatient (IN) | payer MEDICARE ==
[2020-03-15] MEDS ORDERED: Famotidine/PF 20 mg/2ml Vial ONE (11:00)
[2020-03-15] MEDS ORDERED: diphenhydrAMINE 50 MG/ML VIAL ONE (11:00)
[2020-03-15] MEDS ORDERED: methylPREDNISolone Sod Succ 40 MG VIAL ONE (11:00)
--- NOTE | 2020-03-15 11:11 | RAD ---
Exam: Chest one view HISTORY:Dyspnea. Pain. Comparison: 10/26/2019 FINDINGS: Cardiac silhouette:Normal cardiac silhouette. Stable left-sided dual-lead transvenous pacemaker. Aorta: Atherosclerotic Pulmonary vessels: Normal Costophrenic angles: Clear LUNGS: No masses or consolidation. Pneumothorax: None Osseous abnormalities: None IMPRESSION: 1. Atherosclerosis 2. No acute cardiopulmonary process.
[2020-03-15 11:15] LABS: #Eosinphils 0.3 thou/uL (0.0-0.7); #Lymphocytes 2.6 thou/uL (1.20-3.40); #Monocytes 0.9 thou/uL (0.11-0.59); #Neutrophils 8.1 thou/uL (1.40-6.50); %Basophils 0.3 % (0.0-1.0); %Eosinophils 2.7 % (0.0-10.0); %Lymphocytes 21.8 % (21.0-51.0); %Monocytes 7.5 % (0.0-10.0); %Neutrophils 67.8 % (42.0-75.0); Hemoglobin 5.1 g/dL (12.0-16.0); Mean Corpuscular HGB CONC 30.3 g/dL (32.0-36.0); Mean Corpuscular Hemoglobin 24.2 pg (27.0-31.0); Mean Corpuscular Volume 79.9 fL (78.0-98.0); Mean Platelet Volume 7.7 fL (7.4-10.4); Platelet Count 428 thou/uL (130-400); RBC Distribution Width 15.3 % (11.5-14.5); Red Blood Cell (RBC) Count 2.08 mill/uL (4.20-5.40); White Blood Cell (WBC) Count 11.9 thou/uL (4.8-10.8)
[2020-03-15 11:30] LABS: AST (SGOT) 24 U/L (5-34); Anion Gap 13 mmol/L (10-20); Bilirubin, Total 0.3 mg/dL (0.2-1.2); Calc. Creatinine Clearance 0 mL/min (70-130); Calcium 8.8 mg/dL (7.8-10.44); Carbon Dioxide 20 mmol/L (23-31); Chloride 110 mmol/L (98-107); Potassium 4.2 mmol/L (3.5-5.1); Protein, Total 6.2 g/dL (6.0-8.3); Sodium 139 mmol/L (136-145)
[2020-03-15 11:36] LABS: ALT (SGPT) 14 U/L (8-55); Albumin 3.3 g/dL (3.4-4.8); Alkaline Phosphatase 47 U/L (40-110); BUN (Urea Nitrogen) 23 mg/dL (9.8-20.1); Globulin 2.9 g/dL (2.4-3.5); Glucose 138 mg/dL (83-110)
[2020-03-15 11:50] LABS: CKMB 1.5 ng/mL (0-6.6)
[2020-03-15] MEDS ORDERED: Iopamidol-370 76% 500 ML 1 ML ONE (13:22)
--- NOTE | 2020-03-15 13:46 | CT ---
CT ABDOMEN WITH CONTRAST CT PELVIS WITH CONTRAST: DATE: 03/15/2020 HISTORY: 73-year-old female with generalized abdominal pain, weight loss, and anemia COMPARISON: 11/25/2019 TECHNIQUE: Patient was pretreated for allergy to iodinated contrast agent. IV injection of iodinated contrast media: administered. Oral contrast media:Not administered FINDINGS: New small bilateral pleural effusions. Nonspecific streaky parenchymal densities at bilateral lung bases, probably subsegmental atelectasis. No small bowel dilation, pneumoperitoneum, ascites, or colonic diverticulitis. New finding of mild gallbladder distention with mural edema of gallbladder. No intrahepatic biliary ductal dilation. Unremarkable liver, spleen, pancreas, and urinary bladder. Atherosclerotic plaque of abdominal aorta and its branches. This includes high-grade stenosis at proximal portion of superior mesenteric artery. No hydronephrosis or pyelonephritis. Multiple small round hypodensities of bilateral renal parenchyma, too small to characterize, at least most of which are probably cysts. A 5 x 4 mm focal calcification at upper pole of left kidney. It does not appear to be an 8 calyx, and could be a small focal dystrophic calcification. The previously demonstrated stool-distended rectum, has resolved. The edema in the perirectal space consistent with stercoral proctitis, has essentially resolved.. 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 2) apparent mural edema of the gallbladder. Consider right upper quadrant abdominal ultrasound for fu rther evaluation. 3) small bilateral pleural effusions
--- NOTE | 2020-03-15 15:29 | PDOC.FPRHP ---
- History of Present Illness Chief Complaint: abnormal labs History of Present Illness: 74 y/o F with PMHx CVA, HTN, DM, HLD, hypothyroidism, pacemaker, mild dementia presents after being notified by her PCP of a low hemoglobin. Outpatient, she was evaluated for weakness and found to have a Hgb of 4.7 on outpatient labs. She was notified by her PCP and instructed to proceed to the ER although she delayed because she felt too weak/fatigued to get to the car. She also endorses SOB, dizziness, constipation. Denies any chest pain, black or bloody stools, hemoptysis. Reported 55 lb weight loss - although she states that the majority of this was during her hospitalization and rehab stay for an acute CVA in 10/2019 and her weight loss has not rapidly progressed since that time. During her past admission she was evaluated for hallucinations presumed due to UTI, although since that time they have required treatment with abilify and haldol. Endorses an episode of epistaxis which resolved with holding pressure after approximately 10 minutes last week. Believes she had colonoscopy in the past but unsure of when this was, performed in [place]. States she has somewhat frequent nosebleeds which has chronically occured after a nasal fracture 25 years ago. She is a fair historian, much of her history is verified by her Erik. ER course: Hgb 5.1, transfused 1u PRBC - Allergies/Adverse Reactions Allergies Allergy/AdvReac Type Severity Reaction Status Date / Time Iodine and Iodide Containing Allergy Verified 10/27/19 01:51 Produc meperidine HCl [From Demerol] Allergy Verified 10/27/19 01:51 propoxyphene HCl Allergy Verified 10/27/19 01:51 [From Darvon] shellfish derived Allergy Verified 10/27/19 01:51 - Home Medications Medication Instructions Recorded Confirmed Type Metoprolol Succinate 50 mg PO DAILY 12/03/14 03/15/20 History Venlafaxine HCl [Effexor XR] 75 mg PO BID 12/03/14 03/15/20 History Amlodipine [Norvasc] 10 mg PO DAILY #0 tab 12/18/14 03/15/20 Rx Clopidogrel Bisulfate [Plavix] 75 mg PO DAILY #0 tab 12/18/14 03/15/20 Rx Albuterol Sulfate [Proair HFA] 1 puff INH Q4HR PRN 08/17/19 03/15/20 History Aspirin 81 mg PO DAILY 08/17/19 03/15/20 History Atorvastatin Calcium [Lipitor] 40 mg PO QPM 08/17/19 03/15/20 History Insulin Lispro [Humalog Kwikpen 5 - 10 unit SQ BID 08/17/19 03/15/20 History U-100] Levothyroxine Sodium [Synthroid] 25 mcg PO DAILY 08/17/19 03/15/20 History Polyethylene Glycol 3350 [Miralax] 17 gm PO DAILY 10/27/19 03/15/20 History Sennosides [Senna] 17.2 mg PO HS PRN 10/27/19 03/15/20 History Aripiprazole [Abilify] 0.5 tab PO DAILY 03/15/20 03/15/20 History Famotidine [Acid-Pep] 20 mg PO DAILY 03/15/20 03/15/20 History Haloperidol [Haldol] 1 mg PO HS 03/15/20 03/15/20 History Mirtazapine [Remeron Soltab] 15 mg PO DAILY 03/15/20 03/15/20 History Naproxen [Naprosyn] 0.5 tab PO Q12HR PRN 03/15/20 03/15/20 History - History PMHx: CVA, HTN, HLD, DM, PSHx: s/p pacemaker, hysterectomy, L4-L5 fusion FHx: CAD, heart failure, cousin with melanoma, denies other family hx cancers Social: denies tobacco, etoh, drug use - Review of Systems General: reports: weight/appetite/sleep changes, fatigue. denies: fever/chills Eyes: denies: eye pain, vision changes ENT: denies: nasal congestion, rhinorrhea Respiratory: reports: shortness of breath. denies: cough, congestion Cardiovascular: denies: chest pain, palpitation, edema Gastrointestinal: reports: nausea, constipation, abdominal pain. denies: vomiting, diarrhea, GI bleeding Genitourinary: reports: polyuria. denies: dysuria Skin: denies: rashes, lesions Musculoskeletal: reports: pain (R shoulder pain since CVA) Neurological: reports: other (lightheaded). denies: syncope - Vital signs BP: 145/66 HR: 72 RR: 18 Tmax: 97.9F Pox: 97 % on RA Wt: 66 kg - Physical Exam Constitutional: NAD, awake, alert and oriented HEENT: normocephalic and atraumatic, no scleral icterus, grossly normal vision, MMM, other (pale conjunctiva, male pattern baldness, poor dentition) Neck: supple, no LAD, no thyromegaly Chest: no-tender to palpation Heart: RRR, pulses present -Heart: trace pitting edema bilaterally, systolic murmur Lungs: CTAB, no respiratory distress, no rales/rhonchi, no wheezing Abdomen: soft, bowel sounds present, no masses/distention -Abdomen: mild suprapubic tenderness, no rebound, no guarding Musculoskeletal: normal structure Neurological: CN II-XII intact (except decreased hearing R ear), other (R sided upper and lower extremity weakness, chronic) Skin: capillary refill <2 seconds, other (diffuse SKs) Heme/Lymphatic: no unusual bruising or bleeding, no purpura, no petechia, no LAD Psychiatric: normal mood and affect FMR H&P: Results - Labs Result Diagrams: 03/16/20 13:07 03/16/20 03:59 Lab results: WBC 11.9 thou/uL (4.8-10.8) H 03/15/20 10:55 Hgb 5.1 g/dL (12.0-16.0) L* 03/15/20 10:55 Hct 16.6 % (36.0-47.0) L 03/15/20 10:55 MCV 79.9 fL (78.0-98.0) 03/15/20 10:55 Plt Count 428 thou/uL (130-400) H 03/15/20 10:55 Neutrophils % 67.8 % (42.0-75.0) 03/15/20 10:55 Sodium 139 mmol/L (136-145) 03/15/20 10:55 Potassium 4.2 mmol/L (3.5-5.1) 03/15/20 10:55 Chloride 110 mmol/L (98-107) H 03/15/20 10:55 Carbon Dioxide 20 mmol/L (23-31) L 03/15/20 10:55 BUN 23 mg/dL (9.8-20.1) H 03/15/20 10:55 Creatinine 1.31 mg/dL (0.6-1.1) H 03/15/20 10:55 Glucose 138 mg/dL (83-110) H 03/15/20 10:55 Calcium 8.8 mg/dL (7.8-10.44) 03/15/20 10:55 Total Bilirubin 0.3 mg/dL (0.2-1.2) 03/15/20 10:55 AST 24 U/L (5-34) 03/15/20 10:55 ALT 14 U/L (8-55) 03/15/20 10:55 Alkaline Phosphatase 47 U/L (40-110) 03/15/20 10:55 CK-MB (CK-2) 1.5 ng/mL (0-6.6) 03/15/20 10:55 Serum Total Protein 6.2 g/dL (6.0-8.3) 03/15/20 10:55 Albumin 3.3 g/dL (3.4-4.8) L 03/15/20 10:55 - EKG Interpretation EKG: EKG: ST depression in V4, V5 FMR H&P: A/P - Plan Symptomatic normocytic anemia Hgb 4.7 in outpatient setting, repeat Hgb 5.1 on admission. s/p 1u PRBC in ED. Unclear etiology, no overt signs of bleeding. Negative FOBT. CT abd/pelvis without obvious mass. s/p hysterectomy. Colonoscopy in past wnl although unclear when this was performed. Less likely due to bone marrow suppression as other wbc/platelets do not seem to be low. - f/u H/H 4 hrs after transfusion - repeat transfusion for Hgb <7.0 Indeterminate troponin EKG with paced rhythm, ST depressions in V4, V5. No chest pain. Likely elevated due to demand from severe anemia. - trend troponin - repeat EKG in AM JARED Likely related to severe anemia. - trend Cr in AM, suspect may improve post transfusion Weight Loss Reported weight loss of up to 55 lbs. Per history, seems most of this was during hospitalization and rehab. Endorses subjective weight loss since then. Approximately 148 lb today, pt estimates she was 205 lb before her stroke and 155 lb upon rehab discharge. May possibly be due to malignancy, especially in the setting of symptomatic anemia, although no clear source at this time. - consider dietary consult - consider further malignancy work up pending patient's goals of care Hx CVA On ASA, plavix. Known R sided deficits. - hold ASA, plavix given severe anemia with unclear source of bleeding Vascular dementia - continue statin - continue anti-hypertensive regimen - hx of hallucinations; continue home abilify and haldol HTN: continue home meds DM: BS improved with weight loss; mild SSI + hypoglycemia protocol Hypothyroid: continue home levothyroxine s/p pacemaker: aware, paced rhythm on EKG; not MRI compatible per last admission HLD: aware, continue statin CODE: cardiac only, DNI Diet: HH IVF: SL DVT ppx: lovenox GI ppx: pepcid Dispo: eLOS > 48 hours FMR H&P: Upper Level - Plan Date/Time: 03/15/20 1529 IErika, have evaluated this patient and agree with findings/plan as outlined by improvement intern resident. Pertinent changes/additions are listed here. 74 yo F with PMH CVA, DM, HTN, pacemaker presents for symptomatic anemia. Outpat ient Hgb was 4.6. Here it was 5.1. She reports weakness, SOB. No hematemasis, change in stool, melena. She has chronic constipation. No vaginal bleeding, had hysterectomy. Sees cardiology, [facility] outpatient. Has pacemaker with plan for new one that would be MRI compatible. Has known loud murmur. 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 Will recheck after transfusion and continue to transfuse if Hgb <7. Unknown cause of rapidly declining Hgb. Last known was 9.5 on 10/2019. No significant accumulation, mass or cause on CT. Had hysterectomy. Had colonoscopy sometime in past, unknown when. No identifiable GI bleed and hemoccult neg in ED. Considered bone marrow etiology-Hgb is the only depressed cell line. It is normocytic which would suggest a more rapid bleed. - Patient currently getting transfusion - iron studies etc would not be as beneficial. - Transfuse to keep Hgb >7 Indeterminate troponin - Trop 0.242, likely 2/2 demand from severe anemia, will continue to trend - Does have ST depression in V4-5, unsure if this is chronic or not. She has no chest pain. JARED - Cr 1.3, likely 2/2 above. Prior Cr of 1.0, recheck in am Thrombocytosis - Platelets 428, could be 2/2 hemoconcentration, will recheck in am Leukocytosis - WBC 11.5 - appears to have been a fluctuating, chronic finding on chart review High grade stenosis of SMA- will talk to patient and review clinic chart to see if this is a previously known finding Mural edema of gallbladder - at this time likely incidental finding, consider outpatient RUQ US DVT ppx: SCDs due to bleeding Attending: Lex PCP: IAN Dispo: admit to telemetry, eLOS >48h Addendum - Attending - Attending Attestation Date/Time: 03/15/20 2310 I personally evaluated the patient and discussed the management with resident team I agree with the History, Examination, Assessment and Plan documented above with any addition or exceptions noted below. Severe anemia. Unsure etiology. Consult GI vs Hem based on lab findings. Currently undergoing transfusion. eTd
[2020-03-15] MEDS ORDERED: Acetaminophen 325 MG TAB PO PRN (15:38)
[2020-03-15] MEDS ORDERED: HumaLOG 300 UNITS/3 ML VIAL SC PRN ×2 (15:38)
[2020-03-15] MEDS ORDERED: Dextrose 50% Abboject 50 ML SYRINGE SLOW IVP PRN (15:38)
[2020-03-15] MEDS ORDERED: Dextrose 5% in Water 1,000 ML IV PRN (15:38)
[2020-03-15] MEDS ORDERED: Ondansetron PF 4 MG/2 ML Vial IVP PRN (15:38)
[2020-03-15] MEDS ORDERED: Ondansetron ODT 4 MG TAB PO PRN (15:38)
[2020-03-15 15:45] LABS: Troponin I 0.224 ng/mL (< 0.028)
[2020-03-15 16:34] LABS: #Monocytes 0.2 thou/uL (0.11-0.59); #Neutrophils 10.3 thou/uL (1.40-6.50); %Basophils 0.1 % (0.0-1.0); %Eosinophils 0.2 % (0.0-10.0); %Lymphocytes 8.5 % (21.0-51.0); %Monocytes 1.9 % (0.0-10.0); %Neutrophils 89.3 % (42.0-75.0); Hemoglobin 6.8 g/dL (12.0-16.0); Mean Corpuscular HGB CONC 32.7 g/dL (32.0-36.0); Mean Corpuscular Hemoglobin 26.9 pg (27.0-31.0); Mean Corpuscular Volume 82.4 fL (78.0-98.0); Mean Platelet Volume 7.6 fL (7.4-10.4); Platelet Count 387 thou/uL (130-400); RBC Distribution Width 16.5 % (11.5-14.5); Red Blood Cell (RBC) Count 2.52 mill/uL (4.20-5.40); White Blood Cell (WBC) Count 11.5 thou/uL (4.8-10.8)
[2020-03-15 17:07] LABS: Troponin I 0.217 ng/mL (< 0.028)
[2020-03-15 17:22] VITALS: BMI 25.9
[2020-03-15] MEDS ORDERED: PROVENTIL INHALER 6.7 G (200 INHALATIONS) INH PRN (19:24)
[2020-03-15] MEDS ORDERED: FLU VACC QS2020-21(65YR UP)/PF 240 MCG/0.7 ML SYRINGE IM ONE (20:00)
[2020-03-15] MEDS: Docusate 100 MG CAP PO SCH (20:03)
[2020-03-15] MEDS: Venlafaxine HCl XR 75 MG CAP PO SCH (20:03)
[2020-03-15] MEDS: Famotidine 20 MG TAB PO SCH (20:03)
[2020-03-15] MEDS: Atorvastatin Calcium 40 MG TAB PO SCH (20:03)
[2020-03-15] MEDS ORDERED: Aripiprazole 2 MG TAB PO SCH (21:00)
[2020-03-15] MEDS ORDERED: Haloperidol 1 MG TAB PO SCH ×2 (21:00→23:30)
[2020-03-15] MEDS ORDERED: diphenhydrAMINE 25 MG CAP PO SCH (23:15)
[2020-03-16 02:28] LABS: SARS-CoV-2 MS2 Positive; SARS-CoV-2 N Gene Negative; SARS-CoV-2 S Gene Negative; SARS-CoV-2 by NAA Not Detected (NotDetected); SARS-CoV-2 orf1ab Negative
[2020-03-16 04:37] LABS: #Basophils 0.1 thou/uL (0.0-0.2); #Lymphocytes 2.8 thou/uL (1.20-3.40); #Neutrophils 7.1 thou/uL (1.40-6.50); %Basophils 0.5 % (0.0-1.0); %Eosinophils 0.1 % (0.0-10.0); %Lymphocytes 25.7 % (21.0-51.0); %Monocytes 8.8 % (0.0-10.0); %Neutrophils 64.9 % (42.0-75.0); Hemoglobin 6.6 g/dL (12.0-16.0); Mean Corpuscular HGB CONC 32.4 g/dL (32.0-36.0); Mean Corpuscular Hemoglobin 26.4 pg (27.0-31.0); Mean Corpuscular Volume 81.4 fL (78.0-98.0); Mean Platelet Volume 7.9 fL (7.4-10.4); Platelet Count 425 thou/uL (130-400); RBC Distribution Width 16.6 % (11.5-14.5); Red Blood Cell (RBC) Count 2.49 mill/uL (4.20-5.40)
[2020-03-16 05:00] LABS: Anion Gap 14 mmol/L (10-20); BUN (Urea Nitrogen) 18 mg/dL (9.8-20.1); Calc. Creatinine Clearance 49 mL/min (70-130); Calcium 8.8 mg/dL (7.8-10.44); Carbon Dioxide 20 mmol/L (23-31); Chloride 109 mmol/L (98-107); Glucose 83 mg/dL (83-110); Potassium 3.7 mmol/L (3.5-5.1); Sodium 139 mmol/L (136-145)
[2020-03-16] MEDS: Levothyroxine Sodium 25 MCG TAB PO SCH (05:21)
--- NOTE | 2020-03-16 05:56 | PDOC.FM ---
- Subjective Subjective: Patient is resting comfortably in bed. No concerns. Denies chest pain, shortness of breath, denies N/V. Patient states that she has some chronic constipation and some chronic lower abdominal pain. She denies melena or hematochezia. Unsure when her last colonoscopy was x many years ago. Overnight patient was agitated, per her PCP this is normal for her, she received 3mg of ativan and 25 of benadryl. - Objective MAR Reviewed: Yes Vital Signs & Weight: Vital Signs (12 hours) Temp Pulse Resp BP Pulse Ox 03/16/20 03:18 98.6 F 75 18 130/62 100 03/16/20 00:27 100 03/16/20 00:00 98.6 F 77 18 120/64 98 03/15/20 20:00 98 03/15/20 19:58 97.9 F 78 16 145/66 H 98 03/15/20 19:36 100 Weight Weight 66.542 kg I&O: 03/14/20 03/15/20 03/16/20 06:59 06:59 06:59 Intake Total 250 Output Total 150 Balance 100 Result Diagrams: 03/17/20 03:50 03/16/20 03:59 Phys Exam - Physical Examination Constitutional: NAD HEENT: PERRLA, moist MMs Respiratory: no wheezing, clear to auscultation bilateral RIGOBERTO, trace pitting edema bilaterally Gastrointestinal: soft, no distention, positive bowel sounds tenderness to palpation in suprapubic region and LLW Neurological: non-focal Deviation from normal: AxO x 3 Dx/Plan - Plan Plan: Symptomatic normocytic anemia Hgb 4.7 in outpatient setting, repeat Hgb 5.1 on admission. s/p 1u PRBC in ED. Unclear etiology, no overt signs of bleeding. Negative FOBT. CT abd/pelvis without obvious mass. s/p hysterectomy. Colonoscopy in past wnl although unclear when this was performed x years. Less likely due to bone marrow suppression as other wbc/platelets do not seem to be low. - Hgb this am down from 7 > 6.6, gave 1 u pRBCs - consulted GI Dr. Holland, appreciate recs - will see today Indeterminate troponin EKG with paced rhythm, ST depressions in V4, V5. No chest pain. Likely elevated due to demand from severe anemia. - repeated EKG showed some ST depression in II, and avF, likely elevated secondary to above Trops downtrended .242 > .217 - continue to monitor on tele JARED, resolved Likely related to severe anemia. - continue to monitor Weight Loss Reported weight loss of up to 55 lbs. Per history, seems most of this was during hospitalization and rehab. Endorses subjective weight loss since then. Approximately 148 lb, pt estimates she was 205 lb before her stroke and 155 lb upon rehab discharge. May possibly be due to malignancy, especially in the setting of symptomatic anemia, although no clear source at this time. Hx of duodenal ulcers & stercoral colitis - GI consutled as above Hx CVA On ASA, plavix. Known R sided deficits. - hold ASA, plavix given severe anemia with unclear source of bleeding Vascular dementia - continue statin - continue anti-hypertensive regimen - hx of hallucinations; continue home abilify and haldol HTN - continue home meds DM - BS improved with weight loss; mild SSI + hypoglycemia protocol Hypothyroid - continue home levothyroxine s/p pacemaker - aware, paced rhythm on EKG; not MRI compatible per last admission HLD - aware, continue statin CODE: cardiac only, DNI Diet: HH IVF: SL DVT ppx: lovenox GI ppx: pepcid Dispo: eLOS > 48 hours Addendum - Attending - Attending Attestation Date/Time: 03/17/201955 I personally evaluated the patient and discussed the management with I agree with the History, Examination, Assessment and Plan documented above with any addition or exceptions noted below.
[2020-03-16] MEDS: Famotidine 20 MG TAB PO SCH ×2 (08:21→21:05)
[2020-03-16] MEDS: Amlodipine 10 MG TAB PO SCH (08:21)
[2020-03-16] MEDS: Fenofibrate Nanocrystallized 145 MG TAB PO SCH (08:21)
[2020-03-16] MEDS: Docusate 100 MG CAP PO SCH ×2 (08:21→21:05)
[2020-03-16] MEDS: Ferrous Sulfate 325 MG TAB PO SCH (08:21)
[2020-03-16] MEDS: Venlafaxine HCl XR 75 MG CAP PO SCH ×2 (08:22→21:05)
[2020-03-16] MEDS ORDERED: Aripiprazole 10 MG TAB PO SCH (09:00)
--- NOTE | 2020-03-16 12:26 | CON ---
DATE OF CONSULTATION: 03/16/2020 REQUESTING PHYSICIAN: Dr. Kitty English. REASON FOR CONSULTATION: Anemia. HISTORY OF PRESENT ILLNESS: Kaur Crowell is a pleasant 74-year-old woman with a history significant for diabetes, some vascular dementia, pacemaker placement, and CVA back in September 2019. Since that time, she has lost about 50 pounds. She was admitted to the hospital yesterday with progressive weakness and fatigue and was found to be severely anemic with hemoglobin down to 4.6. Looking back, it appears her baseline hemoglobin is in the 8 to 9 range. This is a normocytic anemia with MCV 79.9. With 2 units RBC transfusion, her hemoglobin came up to 7.0, and this morning drifted down a little bit to 6.6, and she is getting one more unit of blood. FOBT was performed and is actually negative. Through all of this, she denies any overt bleeding in her stool. She says there has been no melena or hematochezia. Her bowel movements are generally daily or every other day with some chronic constipation, fairly well controlled with p.r.n. laxatives. She has not had any vomiting or hematemesis, though sometimes she does get nauseated. She has a little bit of lower abdominal discomfort just preceding bowel movements. She denies any gross hematuria. She does report some episodes of epistaxis maybe once or twice a month, which were usually not too bad. The last episode was last week and lasted about 10 minutes. She is on aspirin and Plavix. She recalls having undergone multiple colonoscopies in the past in [place]. She thinks her last one was perhaps within the past year or two, but she really cannot give any details on findings of that. She says she has a prior history of duodenal ulcer in the remote past. REVIEW OF SYSTEMS: Full review of systems including constitutional, head, eyes, ears, nose, throat, GI, , cardiovascular, respiratory, musculoskeletal, neurologic systems is negative except as noted in the HPI. PAST MEDICAL HISTORY: CVA in September 2019, diabetes, hypertension, hyperlipidemia, vascular dementia, pacemaker placement, remote duodenal ulcer disease, hysterectomy, L4/L5 fusion. FAMILY HISTORY: Cousin with melanoma. No other family history of malignancy known. SOCIAL HISTORY: No tobacco, alcohol, or drug use. ALLERGIES: IODINE, MEPERIDINE, DARVON, SHELLFISH. HOME MEDICATIONS: 1. Metoprolol. 2. Venlafaxine. 3. Amlodipine. 4. Plavix 75 mg daily. 5. Aspirin 81 mg daily. 6. Albuterol. 7. Lipitor. 8. Insulin 5 to 10 units b.i.d. 9. MiraLAX daily. 10. Levothyroxine. 11. Senna p.r.n. 12. Abilify. 13. Famotidine 20 mg daily. 14. Haloperidol 1 mg at bedtime. 15. Mirtazapine 15 mg daily. 16. Naproxen p.r.n. PHYSICAL EXAMINATION: VITAL SIGNS: Temperature 97.8, pulse 70, blood pressure 140/65, 100% oxygen saturation on room air. GENERAL: Pale 74-year-old woman appearing chronically ill, nontoxic, lying in bed comfortably, in no distress. SKIN: She has alopecia. She is a bit pale. No jaundice. No rashes were palpable. EYES: No scleral icterus. Extraocular movements intact. ENT: Mucous membranes moist. No oral lesions. LYMPH: No submandibular or supraclavicular lymphadenopathy. THYROID: Nontender to palpation. HEART: Regular rate and rhythm. LUNGS: Clear to auscultation bilaterally. ABDOMEN: Bowel sounds present. Soft, nontender to deep palpation throughout. No masses or organomegaly appreciated. EXTREMITIES: No peripheral edema. VESSELS: Radial pulses 2+ bilaterally. NEUROLOGIC: Cranial nerves 2 through 12 intact bilaterally. No focal deficit. She does slur her speech. IMAGING STUDIES: Chest x-ray showed pacemaker placement, but no acute processes. CT of the abdomen pelvis shows some mild gallbladder edema and distention. There is also some stenosis of the SMA along with more diffuse atherosclerotic disease, but otherwise bowel appears normal. No mass lesion visualized. LABORATORY STUDIES: Hemoglobin initially 5.1, after 2 units it is up to 6.6. She is getting one more unit of RBCs. MCV was 79.9, WBC 11.0, platelets 425. Sodium 139, potassium 3.7, BUN 18, creatinine 1.07, glucose 86. CK-MB only 1.5, troponin 0.217. LFTs all normal. FOBT negative. COVID PCR negative. ASSESSMENT AND PLAN: 1. Anemia, acute on chronic. Labs from last September did show mild iron deficiency at that time. She has had some response to initial blood transfusion, but is getting one more unit today. She is hemodynamically stable. Certainly, chronic gastrointestinal bleeding lesion needs to be considered, particularly since she has been on aspirin and Plavix and given her prior history of duodenal ulcer disease and it appears stercoral colitis about a year ago. We are going to plan for diagnostic EGD and colonoscopy tomorrow after bowel preparation this evening. I have discussed this extensively with the patient. She desires to proceed. Aspirin and Plavix are being held in the meantime. 2. Weight loss, evidently 50 to 55 pound weight loss over the past 6 to 12 months, evidently most of this weight loss was over the course of her recent CVA and rehab stay. Obviously need to rule out gastrointestinal malignancy. We will evaluate on EGD/colonoscopy tomorrow. Thank you for the consultation. Please call anytime with questions or concerns. Job ID: [id number]
[2020-03-16 13:18] LABS: Reticulocyte Count 3.2 % (0.5-1.5)
[2020-03-16 13:32] LABS: Hemoglobin 9.2 g/dL (12.0-16.0); Mean Corpuscular HGB CONC 33.4 g/dL (32.0-36.0); Mean Corpuscular Hemoglobin 27.9 pg (27.0-31.0); Mean Corpuscular Volume 83.4 fL (78.0-98.0); Mean Platelet Volume 7.8 fL (7.4-10.4); Platelet Count 415 thou/uL (130-400); Red Blood Cell (RBC) Count 3.32 mill/uL (4.20-5.40); White Blood Cell (WBC) Count 19.2 thou/uL (4.8-10.8)
[2020-03-16 13:54] LABS: Anisocytosis SLIGHT = 6-15 cells (100X) (0-5/hpf); Band 1 % (5-11); Eosinophils 1 % (0-10); Hypochromia SLIGHT = 6-15 cells (100X) (0-5/hpf); Lymphocytes 20 % (21-51); MDiff Complete? YES; Monocytes 3 % (0-10); Neutrophil 75 % (42-75); Platelet Morphology Comment Appears Increased; Polychromasia MODERATE = 3-4 cells (100X) (0-2/hpf)
[2020-03-16] MEDS ORDERED: GoLYTELY 4,000 ml Bottle PO SCH (17:00)
[2020-03-16] MEDS: Atorvastatin Calcium 40 MG TAB PO SCH (21:05)
[2020-03-17 04:41] LABS: #Eosinphils 0.2 thou/uL (0.0-0.7); #Lymphocytes 3.2 thou/uL (1.20-3.40); #Monocytes 1.3 thou/uL (0.11-0.59); #Neutrophils 13.8 thou/uL (1.40-6.50); %Basophils 0.1 % (0.0-1.0); %Lymphocytes 17.2 % (21.0-51.0); %Neutrophils 74.8 % (42.0-75.0); Hemoglobin 8.3 g/dL (12.0-16.0); Mean Corpuscular HGB CONC 33.6 g/dL (32.0-36.0); Mean Corpuscular Hemoglobin 27.6 pg (27.0-31.0); Mean Corpuscular Volume 82.3 fL (78.0-98.0); Mean Platelet Volume 7.9 fL (7.4-10.4); Platelet Count 408 thou/uL (130-400); RBC Distribution Width 17.4 % (11.5-14.5); Red Blood Cell (RBC) Count 2.99 mill/uL (4.20-5.40); White Blood Cell (WBC) Count 18.5 thou/uL (4.8-10.8)
[2020-03-17] MEDS: Levothyroxine Sodium 25 MCG TAB PO SCH (04:59)
[2020-03-17] MEDS ORDERED: GoLYTELY 4,000 ml Bottle PO SCH ×2 (06:00→18:00)
--- NOTE | 2020-03-17 06:38 | PDOC.FM ---
- Subjective Subjective: Patient is resting comfortably in bed. Reports that she hates drinking the bowel prep, notes it is giving her some crampy abdominal pain and diarrhea. Denies chest pain, shortness of breath, denies N/V. - Objective MAR Reviewed: Yes Vital Signs & Weight: Vital Signs (12 hours) Temp Pulse Resp BP Pulse Ox 03/17/20 04:40 98.2 F 76 16 131/64 93 L 03/16/20 23:55 98.5 F 70 20 146/70 H 94 L 03/16/20 19:25 98.2 F 73 20 137/68 95 Weight Weight 66.542 kg I&O: 03/15/20 03/16/20 03/17/20 06:59 06:59 06:59 Intake Total 250 3750 Output Total 150 Balance 100 3750 Result Diagrams: 03/17/20 03:50 03/16/20 03:59 Phys Exam - Physical Examination Constitutional: NAD HEENT: PERRLA, moist MMs Respiratory: no wheezing, clear to auscultation bilateral RIGOBERTO, trace pitting edema tenderness to palpation in suprapubic region and LLQ Deviation from normal: AxO x 2 Dx/Plan - Plan Plan: Symptomatic normocytic anemia Hgb 4.7 in outpatient setting, repeat Hgb 5.1 on admission. s/p 1u PRBC in ED. Unclear etiology, no overt signs of bleeding. Negative FOBT. CT abd/pelvis without obvious mass. s/p hysterectomy. Colonoscopy in past wnl although unclear when this was performed x years. Less likely due to bone marrow suppression as other wbc/platelets do not seem to be low. - Hgb 03/16 am 7 > 6.6, gave 1 u pRBCs, recheck 9.2, this am 8.3 - consulted GI Dr. Holland, appreciate recs - EGD and colonoscopy today Indeterminate troponin EKG with paced rhythm, ST depressions in V4, V5. No chest pain. Likely elevated due to demand from severe anemia. - repeated EKG showed some ST depression in II, and avF, likely elevated secondary to above Trops downtrended .242 > .217 - continue to monitor on tele JARED, resolved Likely related to severe anemia - continue to monitor Weight Loss Reported weight loss of up to 55 lbs. Per history, seems most of this was during hospitalization and rehab. Endorses subjective weight loss since then. Approximately 148 lb, pt estimates she was 205 lb before her stroke and 155 lb upon rehab discharge. May possibly be due to malignancy, especially in the setting of symptomatic anemia, although no clear source at this time. Hx of duodenal ulcers & stercoral colitis - GI consulted as above Hx CVA On ASA, plavix. Known R sided deficits. - hold ASA, plavix given severe anemia with unclear source of bleeding and per GI recs Vascular dementia - continue statin - continue anti-hypertensive regimen - hx of hallucinations; continue home abilify and haldol HTN - continue home meds DM - BS improved with weight loss; mild SSI + hypoglycemia protocol Hypothyroid - continue home levothyroxine s/p pacemaker - aware, paced rhythm on EKG; not MRI compatible per last admission HLD - aware, continue statin CODE: cardiac only, DNI Diet: HH IVF: SL DVT ppx: lovenox GI ppx: pepcid Dispo: eLOS > 48 hours Addendum - Attending - Attending Attestation Date/Time: 03/17/20 9316 I personally evaluated the patient and discussed the management with Dr. English I agree with the History, Examination, Assessment and Plan documented above with any addition or exceptions noted below. Patient undergoing bowel prep for endoscopy continue to trend H/H and transfuse to keep Hgb greater than 7. Patient asymptomatic currently hemodynamically stable.
[2020-03-17] MEDS: Venlafaxine HCl XR 75 MG CAP PO SCH ×2 (07:55→20:36)
[2020-03-17] MEDS: Amlodipine 10 MG TAB PO SCH (07:55)
[2020-03-17] MEDS: Ferrous Sulfate 325 MG TAB PO SCH (07:55)
[2020-03-17] MEDS: Famotidine 20 MG TAB PO SCH ×2 (07:55→20:35)
[2020-03-17] MEDS: Fenofibrate Nanocrystallized 145 MG TAB PO SCH (07:55)
[2020-03-17] MEDS: Docusate 100 MG CAP PO SCH ×2 (07:55→20:35)
--- NOTE | 2020-03-17 11:07 | PRG ---
DATE OF SERVICE: 03/17/2020 SUBJECTIVE: Mrs. Crowell finished about three-quarters of her bowel preparation last night. She had a lot of liquid bowel movements, but still very dark brown in color, not clear. She reports that she had gone maybe 10 days without any bowel movement prior to this. She is otherwise feeling okay and not having any abdominal pain. OBJECTIVE: VITAL SIGNS: Temperature 98.7, pulse 70, blood pressure 129/62, and 98% oxygen saturation on room air. GENERAL: No acute distress, sitting up in bed, comfortably. HEART: Regular rate and rhythm. LUNGS: Clear to auscultation bilaterally. ABDOMEN: Bowel sounds present. Soft and nontender to palpation. EXTREMITIES: No peripheral edema. LABORATORY STUDIES: Hemoglobin down from 9.2 to 8.3, WBC is 18.5, and platelets 408. Glucose 77. ASSESSMENT AND PLAN: 1. Iron deficiency anemia, acute on chronic. 2. Weight loss. The patient did not have good enough clearance with her bowel prep, and so I would recommend holding off on the EGD/colonoscopy. We had planned for today. I want her to finish that gallon of GoLYTELY through the course of the day. This evening, depending on what her stools are looking like, we will likely have her drink another half gallon of GoLYTELY, in anticipation of EGD/colonoscopy tomorrow. The patient and her are agreeable to this. Job ID: [id number]
[2020-03-17] MEDS: diphenhydrAMINE 25 MG CAP PO SCH ×2 (20:35)
[2020-03-17] MEDS: Aripiprazole 10 MG TAB PO SCH (20:35)
[2020-03-17] MEDS: Atorvastatin Calcium 40 MG TAB PO SCH (20:35)
[2020-03-17] MEDS: Haloperidol 1 MG TAB PO SCH ×2 (20:36)
[2020-03-18 04:45] LABS: #Basophils 0.1 thou/uL (0.0-0.2); #Eosinphils 0.7 thou/uL (0.0-0.7); #Lymphocytes 3.8 thou/uL (1.20-3.40); #Monocytes 1.2 thou/uL (0.11-0.59); #Neutrophils 8.6 thou/uL (1.40-6.50); %Basophils 0.5 % (0.0-1.0); %Eosinophils 5.1 % (0.0-10.0); %Lymphocytes 26.5 % (21.0-51.0); %Monocytes 8.4 % (0.0-10.0); %Neutrophils 59.6 % (42.0-75.0); Hemoglobin 8.6 g/dL (12.0-16.0); Mean Corpuscular HGB CONC 33.4 g/dL (32.0-36.0); Mean Corpuscular Hemoglobin 27.6 pg (27.0-31.0); Mean Corpuscular Volume 82.6 fL (78.0-98.0); Mean Platelet Volume 7.9 fL (7.4-10.4); Platelet Count 398 thou/uL (130-400); RBC Distribution Width 17.9 % (11.5-14.5); White Blood Cell (WBC) Count 14.5 thou/uL (4.8-10.8)
[2020-03-18 05:07] LABS: Anion Gap 15 mmol/L (10-20); BUN (Urea Nitrogen) 10 mg/dL (9.8-20.1); Calc. Creatinine Clearance 63 mL/min (70-130); Calcium 8.6 mg/dL (7.8-10.44); Carbon Dioxide 23 mmol/L (23-31); Chloride 106 mmol/L (98-107); Glucose 67 mg/dL (83-110); Sodium 141 mmol/L (136-145)
[2020-03-18] MEDS: Levothyroxine Sodium 25 MCG TAB PO SCH (05:40)
--- NOTE | 2020-03-18 08:13 | PDOC.FM ---
- Subjective Subjective: Patient was resting comfortably in bed with her present at the time of evaluation. Patient denied any acute overnight events, particularly with regard to chest pain or SOB, and states that she was able to complete the bowel prep for her EGD/Colonoscopy. Per review of Telemetry Floor records, patient demonstrated SR with intermittent ST depression throughout the night. It should be noted that patient has Dementia at baseline, and is an unreliable historian as well - both individuals discussed conflicting understandings of the current plan of care as reported by the Resident Medicine Team, GI and Nursing Staff - will likely require close follow-up and prolonged discussion of pathway forward at all encounters. - Objective Vital Signs & Weight: Vital Signs (12 hours) Temp Pulse Resp BP Pulse Ox 03/18/20 07:25 97.5 F L 84 20 129/60 98 03/18/20 05:00 97.7 F 70 24 H 141/65 H 99 03/18/20 04:17 97.7 F 70 24 H 141/65 H 99 03/17/20 23:36 97.2 F L 64 17 132/60 100 Weight Weight 63.775 kg I&O: 03/17/20 03/18/20 03/19/20 06:59 06:59 06:59 Intake Total 3750 5900 Output Total 4000 Balance 3750 1900 Result Diagrams: 03/18/20 04:06 03/18/20 04:06 Phys Exam - Physical Examination Constitutional: NAD HEENT: moist MMs, sclera anicteric Neck: supple, full ROM Respiratory: no wheezing, no rales, no rhonchi, clear to auscultation bilateral Cardiovascular: RRR, no rub 3/6 systolic murmur heard diffusely Gastrointestinal: soft, non-tender, no distention, positive bowel sounds Musculoskeletal: no edema, pulses present Deviation from normal: Pleasant affect Dx/Plan (1) Anemia Code(s): D64.9 - ANEMIA, UNSPECIFIED Status: Acute (2) Insulin dependent diabetes mellitus Code(s): [id number] - Status: Acute (3) Type II diabetes mellitus Status: Acute (4) Vascular dementia Code(s): F01.50 - VASCULAR DEMENTIA WITHOUT BEHAVIORAL DISTURBANCE Status: Acute (5) CVA (cerebral vascular accident) Code(s): I63.9 - CEREBRAL INFARCTION, UNSPECIFIED Status: Chronic Qualifiers: CVA mechanism: thrombosis Precerebral and cerebral artery: unspecified cerebral artery Qualified Code(s): I63.30 - Cerebral infarction due to thrombosis of unspecified cerebral artery (6) Dyslipidemia Code(s): E78.5 - HYPERLIPIDEMIA, UNSPECIFIED Status: Chronic (7) Hypertension Code(s): I10 - ESSENTIAL (PRIMARY) HYPERTENSION Status: Chronic Qualifiers: Hypertension type: essential hypertension Qualified Code(s): I10 - Essential (primary) hypertension - Plan Plan: Patient is a 74 y/o female who presented to the ER after being found to have a Hg < 7 during outpatient work-up for fatigue. #Normocytic Anemia, symptomatic -H.7 - repeat was 5.1 in ER -s/p 2u PRBCs -H.6 on 03/18 -No evidence of active bleeding -FOBT: Negative -CT ABD/Pelvis: No obvious masses, s/p hysterectomy -Colonoscopy: Reportedly WNL although unclear of timing -GI: Consulted, recs appreciated - will plan for EGD/Colonoscopy on 03/18 #Indeterminate Troponin -Trop: 0.242 > 0.224 > 0.217 -EKG: Paced rhythm, ST depressions in V4, V5 -Repeat EKG: ST depression in II, and aVF -Likely due to demand ischemia -Will continue to monitor on Telemetry Floor #JARED, resolved -Cr: 1.31 > 0.83 -Likely related to severe anemia -Will continue to monitor with AM Labs #Weight Loss -Reported weight loss of up to 55 LBS during previous hospitalization / rehab following CVA -Possibly due to malignancy, especially in the setting of symptomatic anemia, although no clear source at this time -GI: Consulted, recs appreciare -See above #Hx CVA -Known right-sided deficits -Currently holding ASA, Plavix given severe anemia with unclear source of bleeding, per GI recs #Vascular dementia -Will continue home statin regimen -Reported Hx of hallucinations - will continue home Abilify, Haldol #HTN -Will continue home medication regimen #DM -Mild SSI -Hypoglycemia Protocol #Hypothyroid -Will continue home medication regimen #s/p Pacemaker -Aware, paced rhythm on EKG; not MRI compatible per last admission #HLD -Will continue home statin regimen PCP: [facility] CODE: DNI, Cardiac Only Diet: NPO Activity: Ambulate w/ Assist VTE PPx: None GI PPx: Famotidine 20 mg PO BID Dispo: Patient is currently stable and admitted to the Telemetry Floor for ongoing evaluation of Normocytic Anemia. Will plan for EGD/Colonoscopy today with GI - recs appreciated. Will alter plan of care accordingly based on findings. Expected LOS > 48H. Addendum - Attending - Attending Attestation Date/Time: 03/18/20 4001 I personally evaluated the patient and discussed the management with Dr. Forrester. I agree with the History, Examination, Assessment and Plan documented above with any addition or exceptions noted below.
[2020-03-18] MEDS: Ferrous Sulfate 325 MG TAB PO SCH (08:29)
[2020-03-18] MEDS: Venlafaxine HCl XR 75 MG CAP PO SCH ×2 (08:29→21:16)
[2020-03-18] MEDS: Amlodipine 10 MG TAB PO SCH (08:29)
[2020-03-18] MEDS: Fenofibrate Nanocrystallized 145 MG TAB PO SCH (08:30)
[2020-03-18] MEDS: Famotidine 20 MG TAB PO SCH (08:30)
[2020-03-18] MEDS: Docusate 100 MG CAP PO SCH ×2 (08:31→21:14)
[2020-03-18] MEDS ORDERED: Potassium Chloride 40 MEQ in Sodium Chloride 0.9% 250 ML 250 ML IVPB SCH (09:30)
[2020-03-18] MEDS ORDERED: PROPOFOL 200 MG/20 ML VIAL ONE (11:19)
[2020-03-18] MEDS ORDERED: Lidocaine 1% PF 5 ML VIAL ONE (11:19)
[2020-03-18] MEDS ORDERED: PHENYLEPHRINE-NS 100 MCG/ML 10 ML SYRINGE ONE (11:19)
[2020-03-18] MEDS ORDERED: Pantoprazole 40 MG VIAL IVP SCH (12:15)
--- NOTE | 2020-03-18 12:30 | OP ---
DATE OF PROCEDURE: 03/18/2020 PREPROCEDURE DIAGNOSES: 1. Severe anemia. 2. Iron deficiency. 3. Leukocytosis. 4. Weight loss. 5. Alopecia. POSTPROCEDURE DIAGNOSES: 1. Gastroduodenal ulcers, large, nonbleeding, biopsied. 2. Normal colonoscopy. RECOMMENDATIONS: 1. IV Protonix q.12. Once the patient is tolerating diet, can change to p.o. 2. Iron supplementation. 3. Check B12 and folate. ANESTHESIA: TIVA. DESCRIPTION OF PROCEDURE: After the patient was informed of the risks, benefits, and possible complications of endoscopy including perforation, bleeding, reaction to medication, and aspiration, informed consent was obtained. The patient was brought to endoscopy suite, where she was sedated in gradual fashion. The endoscope was advanced into the esophagus, stomach, into second and third portions of the duodenum and slowly removed. The esophagus was normal. Stomach was notable for a 1.5 cm deep ulcer, white based in the anterior wall of the pre-pyloric antrum. Biopsies were obtained from the margin. Also on entering the duodenum, a large 1 cm white based deep ulcer was noted in the anterior wall of the bulb, had benign appearance. The duodenum to the third portion was otherwise normal. The scope was removed. A rectal examination was performed. The endoscope was advanced to the anal canal, through the colon to the cecum, which was identified by the ileocecal valve and appendiceal orifice. The prep was good. There was no mass, lesions, or AVMs noted. Forward and retroflexed views in the rectum were normal. The scope was removed. The patient tolerated the procedure well. There were no complications. On talking with the patient's , she has been taking heavy doses of NSAIDs at home. This is likely NSAID related ulcers. We will await biopsies for H pylori. In light of her alopecia, we will check B12 and folate as well. Job ID: [id number]
--- NOTE | 2020-03-18 13:16 | PQF ---
CLINICAL DOCUMENTATION CLARIFICATION FORM: Dear DR. Jonathan Forrester * r Date: 03/18/2020. 1300 Please exercise your independent, professional judgment in responding to the clarification form. Clinical indicators are provided on the bottom of this form for your review. Please check appropriate box(es): [ ] Type 1 KS (NSTEMI) [ X ] Type 2 KS (T2MI) secondary to: [ ] hypertension [ ] arrhythmia [ ] Infection [ X ] severe anemia [ ] ischemic stroke [ ] renal failure [ ] heart failure [ ] other and includes patients with Type I & Type 2 KS) [ ] Insignificant lab value [ ] Other: [ ] Takotsubo syndrome [ ] Other diagnosis [ ] Unable to determine In addition, please specify: Present on Admission (POA): [ X ] Yes [ ] No [ ] Unable to determine For continuity of documentation, please document condition throughout progress notes and discharge summary. Thank You. To be completed by CDI/Coding staff for physician review: CLINICAL INDICATORS - SIGNS / SYMPTOMS / LABS / RESULTS AND LOCATION IN EMR 03/15 Troponin I 0.242, 0.224, 0.217 ED record: [place] nauseous today, pain all over since Wed,feeling like passing out, EKG Slight ST depression in V3 4 through v6. Final : acute symptomatic anemia Type II Nstemi. 03/15 H&P : Indeterminate Troponin , likely 2/2 demand from severe anemia, will continue to trend, Does have ST depression in V4-5 , unsure if this is chronic. She has no chest pain. ( Rehg/03/15) RISKS / RESULTS AND LOCATION IN EMR Hx HTN , DM, HLD, severe symptomatic anemia ( H&P / Rehg) 03/15 TREATMENTS / RESULTS AND LOCATION IN EMR Continuous cardiac monitoring (03/15 present) Serial troponin ( 03/15) Thank you! CDS Signature: Linda Torres RN. Phone #: [phone] Date: 03/18/2019 This is a permanent part of the Medical Record [facility]
--- NOTE | 2020-03-18 13:31 | PQF ---
Dear Dr. Jonathan Forrester *r Date: 03/18/2020. 1320 Please exercise your independent, professional judgment in responding to the clarification form. Clinical indicators are provided on the bottom of this form for your review. Please check appropriate box(es): [ ] Acute blood loss anemia [ ] Anemia: [ ] Aplastic [ ] Nutritional [ ] Chronic Anemia: [ ] Blood loss [ ] Hemolytic [ ] Simple [ ] Due to Vitamin B12 Deficiency [ ] Other [ ] Anemia of Chronic Disease (please specify) [ ] Anemia due to Neoplasm: [ ] Primary [ ] Secondary [ ] Anemia due to (please choose): [ ] Due to Chemotherapy [ ] Due to Radiotherapy [ ] Due to Immunotherapy [ X ] Other diagnosis : Normocytic Anemia, Etiology Unknown [ ] Unable to determine In addition, please specify: Present on Admission (POA): [ X ] Yes [ ] No [ ] Unable to determine For continuity of documentation, please document condition throughout progress notes and discharge summary. Thank You. To be completed by CDI/Coding staff for physician review: CLINICAL INDICATORS - SIGNS / SYMPTOMS / LABS / RESULTS AND LOCATION IN EMR 03/15 HgB 5.1, 6.8, 7.0, 03/16 HgB 6.6, 9.2, 03/17 HgB 8.3 03/18 HgB 8.6 RISK FACTORS / RESULTS AND LOCATION IN EMR Weight loss of up to 55 lbs, may be due to possible malignancy, especially in the setting of symptomatic anemia, advanced age (. 74) ( H&P/Rehg) 03/15 TREATMENTS / RESULTS AND LOCATION IN EMR Transfusion x 2 Leukoreduced RBC 03/16 Thank you! CDS Signature: Linda Torres RN Phone #: [phone] Date/Time. 03/1120 This is a permanent part of the Medical Record [facility]
[2020-03-18] MEDS: Aripiprazole 10 MG TAB PO SCH (21:13)
[2020-03-18] MEDS: diphenhydrAMINE 25 MG CAP PO SCH (21:14)
[2020-03-18] MEDS: Atorvastatin Calcium 40 MG TAB PO SCH (21:14)
[2020-03-18] MEDS: Pantoprazole 40 MG VIAL IVP SCH (21:15)
[2020-03-18] MEDS: Haloperidol 1 MG TAB PO SCH (21:15)
[2020-03-19] MEDS: Levothyroxine Sodium 25 MCG TAB PO SCH (05:16)
--- NOTE | 2020-03-19 07:31 | PDOC.FM ---
- Subjective Subjective: Patient was resting comfortably in bed with her present at the time of evaluation. Patient denied any acute overnight events, and stated that she felt better this morning than she has in quite some time. Per review of Telemetry Floor records, patient demonstrated sinus rhythm with intermittent ST depression and few PVCs throughout the night. - Objective Vital Signs & Weight: Vital Signs (12 hours) Temp Pulse Resp BP Pulse Ox 03/19/20 05:19 96 03/19/20 03:00 98.1 F 71 18 118/56 L 95 03/18/20 23:42 69 126/58 L 03/18/20 20:50 98 Weight Weight 65.062 kg I&O: 03/18/20 03/19/20 03/20/20 06:59 06:59 06:59 Intake Total 5900 1840 Output Total 4000 100 Balance 1900 1740 Result Diagrams: 03/19/20 08:38 03/19/20 08:38 Phys Exam - Physical Examination Constitutional: NAD HEENT: moist MMs Neck: no nodes, supple, full ROM Respiratory: no wheezing, no rales, no rhonchi, clear to auscultation bilateral Cardiovascular: RRR, no rub 3/6 Systolic Murmur with radiation to Carotid Arteries Gastrointestinal: soft, non-tender, no distention, positive bowel sounds Musculoskeletal: no edema, pulses present Lymphatic: no nodes Psychiatric: normal affect Dx/Plan (1) Anemia Code(s): D64.9 - ANEMIA, UNSPECIFIED Status: Acute (2) Insulin dependent diabetes mellitus Code(s): [id number] - Status: Acute (3) Type II diabetes mellitus Status: Acute (4) Vascular dementia Code(s): F01.50 - VASCULAR DEMENTIA WITHOUT BEHAVIORAL DISTURBANCE Status: Acute (5) CVA (cerebral vascular accident) Code(s): I63.9 - CEREBRAL INFARCTION, UNSPECIFIED Status: Chronic Qualifiers: CVA mechanism: thrombosis Precerebral and cerebral artery: unspecified cerebral artery Qualified Code(s): I63.30 - Cerebral infarction due to thrombosis of unspecified cerebral artery (6) Dyslipidemia Code(s): E78.5 - HYPERLIPIDEMIA, UNSPECIFIED Status: Chronic (7) Hypertension Code(s): I10 - ESSENTIAL (PRIMARY) HYPERTENSION Status: Chronic Qualifiers: Hypertension type: essential hypertension Qualified Code(s): I10 - Essential (primary) hypertension - Plan Plan: Patient is a 74 y/o female who presented to the ER after being found to have a Hg < 7 during outpatient work-up for fatigue. #Normocytic Anemia -Likely multi-factorial due to age, CKD, reported DM and frequent NSAID use -Low Hg of 4.7 with MCV of 79 at PCP's office - repeat was Hg of 5.1 in ER -s/p 2u PRBCs -H.6 on 03/18 - repeat pending -Retic Cnt: 3.2 -Immature Retic Frac.: 0.441 -Iron Studies: Pending -B12: 222 -Folate: 9.1 -No evidence of active bleeding on initial Physical Exam -FOBT: Negative -CT ABD/Pelvis: No obvious masses, s/p hysterectomy -Colonoscopy: Reportedly WNL although unclear of timing -Repeat Colonocscopy: Gastric, Duodenal Ulcerations w/o evidence of active bleeding -Ulceration Biopsy Pathology Report / H. pylori: Pending -GI: Consulted, recs appreciated #Indeterminate Troponin -Trop: 0.242 > 0.224 > 0.217 -EKG: Paced rhythm, ST depressions in V4, V5 -Repeat EKG: ST depression in II, and aVF -Likely due to demand ischemia -Will continue to monitor on Telemetry Floor #JARED, resolved -Cr: 1.31 > 0.83 -Likely related to severe anemia -Will continue to monitor with AM Labs #Weight Loss -Reported weight loss of up to 55 LBS during previous hospitalization / rehab following CVA -Possibly due to malignancy, especially in the setting of symptomatic anemia, although no clear source at this time -GI: Consulted, recs appreciated -See above #Hx CVA -Known right-sided deficits -Currently holding ASA, Plavix given severe anemia with unclear source of bleeding, per GI recs #Vascular dementia -Will continue home statin regimen -Reported Hx of hallucinations - will continue home Abilify, Haldol #HTN -Will continue home medication regimen #DM -Mild SSI -Hypoglycemia Protocol #Hypothyroid -Will continue home medication regimen #s/p Pacemaker -Aware, paced rhythm on EKG; not MRI compatible per last admission #HLD -Will continue home statin regimen PCP: [facility] CODE: DNI, Cardiac Only Diet: NPO Activity: Ambulate w/ Assist VTE PPx: None GI PPx: Famotidine 20 mg PO BID Dispo: Patient is currently stable and admitted to the Telemetry Floor for ongoing evaluation of Normocytic Anemia. Will plan for RUQ US this AM to evaluate gallbladder thickening found incidentally in CT ABD/Pelvis as well as AM Labs / Iron Studies - will alter plan of care accordingly if indicated Expected LOS > 48H. Addendum - Attending - Attending Attestation Date/Time: 03/19/20 1183 I personally evaluated the patient and discussed the management with Dr. Forrester. I agree with the History, Examination, Assessment and Plan documented above with any addition or exceptions noted below.
--- NOTE | 2020-03-19 07:53 | ULT ---
ULTRASOUND ABDOMEN LIMITED: (RIGHT UPPER QUADRANT) DATE: 03/19/2020 HISTORY: 74-year-old female with abdominal pain. Abnormal gallbladder found on recent CT FINDINGS: Gallbladder:Filled with high viscosity sludge. No definite gallstone identified. Mural thickening up to 6 mm. No pericholecystic fluid. Positive tenderness over gallbladder during scanning. Common duct: 3 mm. Liver:Normal size. Echogenicity within normal limits. Pancreas:Partially obscured by shadowing from overlying bowel gas. Right kidney:Several small cysts. The largest is up to 1.7 cm. No hydronephrosis. IMPRESSION: Gallbladder mural thickening and lumen filled with sludge. Positive tenderness over gallbladder. Sher rasta, no gallstones identified. This may or may not represent acute cholecystitis. Nuclear medicine hepatobiliary scan is available for more definitive diagnosis, if desired.
[2020-03-19] MEDS: Fenofibrate Nanocrystallized 145 MG TAB PO SCH (08:11)
[2020-03-19] MEDS: Venlafaxine HCl XR 75 MG CAP PO SCH ×2 (08:11→20:43)
[2020-03-19] MEDS: Ferrous Sulfate 325 MG TAB PO SCH (08:11)
[2020-03-19] MEDS: Amlodipine 10 MG TAB PO SCH (08:11)
[2020-03-19] MEDS: Pantoprazole 40 MG VIAL IVP SCH ×2 (08:12→20:42)
[2020-03-19] MEDS: Docusate 100 MG CAP PO SCH ×2 (08:12→20:43)
[2020-03-19 09:07] LABS: #Basophils 0.1 thou/uL (0.0-0.2); #Eosinphils 0.7 thou/uL (0.0-0.7); #Lymphocytes 3.2 thou/uL (1.20-3.40); #Monocytes 1.1 thou/uL (0.11-0.59); #Neutrophils 6.8 thou/uL (1.40-6.50); %Basophils 0.5 % (0.0-1.0); %Eosinophils 5.9 % (0.0-10.0); %Lymphocytes 27.3 % (21.0-51.0); %Monocytes 8.9 % (0.0-10.0); %Neutrophils 57.5 % (42.0-75.0); Hemoglobin 8.2 g/dL (12.0-16.0); Mean Corpuscular HGB CONC 31.8 g/dL (32.0-36.0); Mean Corpuscular Volume 84.9 fL (78.0-98.0); Mean Platelet Volume 7.8 fL (7.4-10.4); Platelet Count 356 thou/uL (130-400); RBC Distribution Width 18.5 % (11.5-14.5); Red Blood Cell (RBC) Count 3.05 mill/uL (4.20-5.40); White Blood Cell (WBC) Count 11.8 thou/uL (4.8-10.8)
[2020-03-19 09:30] LABS: Iron 20 ug/dL (50-170); Iron Binding Capacity, Total 361 mcg/dL (265-497)
[2020-03-19 09:31] LABS: Anion Gap 12 mmol/L (10-20); BUN (Urea Nitrogen) 7 mg/dL (9.8-20.1); Calc. Creatinine Clearance 60 mL/min (70-130); Calcium 8.2 mg/dL (7.8-10.44); Carbon Dioxide 22 mmol/L (23-31); Chloride 109 mmol/L (98-107); Glucose 80 mg/dL (83-110); Iron 21 ug/dL (50-170); Iron Binding Capacity, Total 371 mcg/dL (265-497); Potassium 3.4 mmol/L (3.5-5.1); Sodium 140 mmol/L (136-145)
--- NOTE | 2020-03-19 15:44 | NM ---
NUCLEAR MEDICINE HEPATOBILIARY SCAN: DATE: 03/19/2020 HISTORY: 74-year-old female with "acalculous cholecystitis" Abdominal pain. Equivocal findings for acute cholecystitis on gallbladder ultrasound this morning. TECHNIQUE: Technetium 99m-mebrofenin dose: 4.8 mCi. Pretreatment Kinevac (CCK analog) dose: 1.3 mcg. Post mebrofenin Kinevac (CCK analog) dose: 1.3 mcg. Patient was pretreated with Kinevac. Next, Tc 99- mebrofenin injected IV. Dynamic anterior scintigrap hy of abdomen for one hour. Kinevac injected. Additional dynamic anterior scintigraphy of abdomen. Counts obtained over the gallbladder. Time-activity curve generated. FINDINGS: There is normal uptake and washout of activity at the liver. Mebrofenin fills the gallbladder at an appropriate time. Bowel activity is visualized. Following the post mebrofenin CCK injection, an abnormally low gallbladder ejection fraction of 9% is obtained. IMPRESSION: 1) negative for acute cholecystitis. 2) positive for chronic cholecystitis/gallbladder dysfunction.
--- NOTE | 2020-03-19 19:31 | PRG ---
DATE OF SERVICE: 03/19/2020 SUBJECTIVE: Ms. Crowell has tolerated liquids well. She has had some epigastric mild pain. She had an ultrasound performed today, which showed some sludge in the gallbladder and a mildly thickened gallbladder wall and she had a HIDA scan, showed filling of the gallbladder bed and reduced ejection fraction. OBJECTIVE: VITAL SIGNS: Temperature 97.3, pulse 61, and blood pressure 127/61. GENERAL: She is in no acute distress. Alert and awake. LUNGS: Clear to auscultation bilaterally. HEART: Regular rate and rhythm without murmur. ABDOMEN: Soft, nontender, and nondistended. Bowel sounds are present. EXTREMITIES: No lower extremity edema. LABORATORY DATA: White blood cell count 11.8, hemoglobin 8.2, and platelets 356. Creatinine 0.86. IMPRESSION: 1. Epigastric pain. 2. Iron deficiency anemia. 3. Gastric and duodenal large ulcers. Ulcers are the likely source of her abdominal pain and anemia. It is unlikely that significant gallbladder disease is her primary issue currently. RECOMMENDATIONS: 1. Proton pump inhibitor twice daily. 2. She was advanced to a solid diet. 3. Her hemoglobin is stable overall. 4. Avoid NSAIDs that she was taking these prior to admission, which likely caused the gastric and duodenal ulcers. Biopsies were negative for Helicobacter pylori. 5. I will sign off. Please call if GI can be of assistance. Job ID: [id number]
[2020-03-19] MEDS: Aripiprazole 10 MG TAB PO SCH (20:42)
[2020-03-19] MEDS: Atorvastatin Calcium 40 MG TAB PO SCH (20:43)
[2020-03-19] MEDS: Haloperidol 1 MG TAB PO SCH (20:43)
[2020-03-19] MEDS: diphenhydrAMINE 25 MG CAP PO SCH (20:43)
[2020-03-20] MEDS: Levothyroxine Sodium 25 MCG TAB PO SCH (05:19)
[2020-03-20 05:44] LABS: Anion Gap 14 mmol/L (10-20); BUN (Urea Nitrogen) 8 mg/dL (9.8-20.1); Calc. Creatinine Clearance 55 mL/min (70-130); Calcium 8.3 mg/dL (7.8-10.44); Carbon Dioxide 19 mmol/L (23-31); Chloride 110 mmol/L (98-107); Glucose 99 mg/dL (83-110); Potassium 3.3 mmol/L (3.5-5.1); Sodium 140 mmol/L (136-145)
--- NOTE | 2020-03-20 06:29 | PDOC.FM ---
- Subjective Subjective: Patient was resting in bed with her asleep on the cough at the time of evaluation. Patient denied any acute overnight events, particularly with regard to chest pain, SOB, ABD pain or bloody stools. Per review of Telemetry Floor Records, patient demonstrated sinus rhythm throughout the night. - Objective Vital Signs & Weight: Vital Signs (12 hours) Temp Pulse Resp BP Pulse Ox 03/20/20 04:00 98.6 F 61 16 123/60 96 03/19/20 20:00 97 03/19/20 19:42 97.9 F 60 22 H 132/63 98 Weight Weight 64.546 kg I&O: 03/18/20 03/19/20 03/20/20 06:59 06:59 06:59 Intake Total 5900 1840 850 Output Total 4000 100 330 Balance 1900 1740 520 Result Diagrams: 03/20/20 04:35 03/20/20 04:35 Phys Exam - Physical Examination Constitutional: NAD HEENT: moist MMs Neck: no nodes, supple, full ROM Respiratory: no wheezing, no rales, no rhonchi, clear to auscultation bilateral Cardiovascular: RRR, no rub 3/6 Systolic Murmur - stable Gastrointestinal: soft, non-tender, no distention, positive bowel sounds Musculoskeletal: no edema, pulses present Lymphatic: no nodes Dx/Plan (1) Anemia Code(s): D64.9 - ANEMIA, UNSPECIFIED Status: Acute (2) Type II diabetes mellitus Status: Acute (3) Vascular dementia Code(s): F01.50 - VASCULAR DEMENTIA WITHOUT BEHAVIORAL DISTURBANCE Status: Chronic (4) CVA (cerebral vascular accident) Code(s): I63.9 - CEREBRAL INFARCTION, UNSPECIFIED Status: Chronic Qualifiers: CVA mechanism: thrombosis Precerebral and cerebral artery: unspecified cerebral artery Qualified Code(s): I63.30 - Cerebral infarction due to thrombosis of unspecified cerebral artery (5) Dyslipidemia Code(s): E78.5 - HYPERLIPIDEMIA, UNSPECIFIED Status: Chronic (6) Hypertension Code(s): I10 - ESSENTIAL (PRIMARY) HYPERTENSION Status: Chronic Qualifiers: Hypertension type: essential hypertension Qualified Code(s): I10 - Essential (primary) hypertension - Plan Plan: Patient is a 74 y/o female who presented to the ER after being found to have a Hg < 7 during outpatient work-up for [place]. #Normocytic Anemia -Likely multi-factorial due to age, CKD, reported DM and frequent NSAID use -Low Hg of 4.7 with MCV of 79 at PCP's office - repeat was Hg of 5.1 in ER -s/p 2u PRBCs -H.3 on 03/19 -Retic Cnt: 3.2 -Immature Retic Frac.: 0.441 -Serum Iron: 21 -Ferritin: 59 -TIBC: 371 -%Sat: 6 -B12: 222 -Folate: 9.1 -No evidence of active bleeding on initial Physical Exam - no reported bleeding since hospitalization -FOBT: Negative -CT ABD/Pelvis: No obvious masses, s/p hysterectomy -Colonoscopy: Reportedly WNL although unclear of timing -Repeat Colonocscopy: Gastric, Duodenal Ulcerations w/o evidence of active bleeding -Ulceration Biopsy Pathology Report / H. pylori: Inflammation w/o evidence of H. pylori -GI: Consulted, recs appreciated -RUQ US: Biliary sludge w/o Cholelithiasis -HIDA Scan: Chronic Cholecystitis #Indeterminate Troponin -Trop: 0.242 > 0.224 > 0.217 -EKG: Paced rhythm, ST depressions in V4, V5 -Repeat EKG: ST depression in II, and aVF -Likely due to demand ischemia -Will continue to monitor on Telemetry Floor #JARED, resolved -Cr: 1.31 > 0.92 -Likely related to severe anemia -Will continue to monitor with AM Labs #Weight Loss -Reported weight loss of up to 55 LBS during previous hospitalization / rehab following CVA -Possibly due to malignancy, especially in the setting of symptomatic anemia, although no clear source at this time -GI: Consulted, recs appreciated -See above #Hx CVA -Known right-sided deficits -Currently holding ASA, Plavix given severe anemia with unclear source of bleeding, per GI recs #Vascular dementia -Will continue home statin regimen -Reported Hx of hallucinations - will continue home Abilify, Haldol #HTN -Will continue home medication regimen #DM -Mild SSI -Hypoglycemia Protocol #Hypothyroid -Will continue home medication regimen #s/p Pacemaker -Aware, paced rhythm on EKG; not MRI compatible per last admission #HLD -Will continue home statin regimen PCP: [facility] CODE: DNI, Cardiac Only Diet: Heart Healthy w/ Low Sodium Activity: Ambulate w/ Assist VTE PPx: None GI PPx: Famotidine 20 mg PO BID Dispo: Patient is currently stable and admitted to the Telemetry Floor following comprehensive work-up for Normocytic Anemia. Based on the patient's colonoscopy results, suspect remote Upper GI bleed in the setting of Iron Deficiency Anemia / Anemia of Chronic Disease. GI consulted, recommended PPIs BID with continued avoidance of NSAIDs in the future w/o specified follow-up. Will likely DC this AM with close follow-up with PCP. Expected LOS < 12H. Addendum - Attending - Attending Attestation Date/Time: 03/20/20 3162 I personally evaluated the patient and discussed the management with Dr. Forrester. I agree with the History, Examination, Assessment and Plan documented above with any addition or exceptions noted below.
[2020-03-20 06:54] LABS: #Eosinphils 0.9 thou/uL (0.0-0.7); #Lymphocytes 2.6 thou/uL (1.20-3.40); #Monocytes 1.2 thou/uL (0.11-0.59); #Neutrophils 6.5 thou/uL (1.40-6.50); %Basophils 0.3 % (0.0-1.0); %Lymphocytes 23.1 % (21.0-51.0); %Monocytes 10.6 % (0.0-10.0); Hemoglobin 8.3 g/dL (12.0-16.0); Mean Corpuscular HGB CONC 31.9 g/dL (32.0-36.0); Mean Corpuscular Volume 84.6 fL (78.0-98.0); Mean Platelet Volume 8.2 fL (7.4-10.4); Platelet Count 343 thou/uL (130-400); RBC Distribution Width 18.3 % (11.5-14.5); Red Blood Cell (RBC) Count 3.07 mill/uL (4.20-5.40); White Blood Cell (WBC) Count 11.2 thou/uL (4.8-10.8)
[2020-03-20] MEDS ORDERED: Potassium Chloride 20 MEQ TAB PO SCH (07:30)
[2020-03-20] MEDS: Fenofibrate Nanocrystallized 145 MG TAB PO SCH (08:57)
[2020-03-20] MEDS: Venlafaxine HCl XR 75 MG CAP PO SCH (08:58)
[2020-03-20] MEDS: Ferrous Sulfate 325 MG TAB PO SCH (08:58)
[2020-03-20] MEDS: Amlodipine 10 MG TAB PO SCH (08:58)
[2020-03-20] MEDS: Docusate 100 MG CAP PO SCH (08:58)
[2020-03-20] MEDS: Pantoprazole 40 MG VIAL IVP SCH (08:58)
[2020-03-20 12:30] VITALS: BP 164/80; TEMP 97.7
--- NOTE | 2020-03-20 14:58 | DIS ---
DATE OF ADMISSION: 03/15/2020 DATE OF DISCHARGE: 03/20/2020 RESIDENT: Dr. Bandar Forrester. ADMITTING ATTENDING: Dr. Vicky Burnett. DISCHARGE ATTENDING: Dr. Yash Mccarthy. CONSULTS: 1. Dr. Binh Holland, GI. 2. Dr. Grabiel Pickett, GI. 3. Dr. Dread Altamirano, GI. PROCEDURES: Chest x-ray performed on 03/15/2020 that demonstrated atherosclerosis and no acute cardiopulmonary processes. 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 EGD, colonoscopy, which demonstrated a 1.5 cm deep gastric ulcer in the anterior wall of the pre-pyloric antrum as well as a large 1 cm duodenal ulcer, both of which were hemodynamically stable. Biopsies were taken, which ultimately demonstrated inflammation without evidence of H pylori. PRIMARY DIAGNOSES: Anemia likely multifactorial secondary to recent acute GI blood loss, anemia of chronic disease, and iron deficiency. SECONDARY DIAGNOSES: 1. Elevated troponins. 2. Acute kidney injury. 3. History of cerebrovascular accident. 4. Vascular dementia. 5. Hypertension. 6. Diabetes. 7. Hypothyroidism. 8. Coronary artery disease. 9. Hyperlipidemia. 10. Chronic cholecystitis. DISCHARGE MEDICATIONS: 1. Albuterol 1 puff q.4 hours p.r.n. 2. Amlodipine 5 mg p.o. daily. 3. Aripiprazole 5 mg p.o. daily. 4. Atorvastatin 40 mg p.o. daily. 5. Ferrous sulfate 325 mg p.o. daily. 6. Haloperidol 1 mg p.o. daily. 7. Levothyroxine 25 mcg p.o. daily. 8. Metoprolol succinate 50 mg p.o. daily. 9. Venlafaxine 75 mg p.o. b.i.d. 10. Clopidogrel 75 mg p.o. daily. 11. Insulin lispro 5 to 10 units subcutaneous b.i.d. 12. Mirtazapine 15 mg p.o. daily. 13. Pantoprazole 40 mg p.o. b.i.d. 14. Polyethylene glycol 17 g p.o. daily. 15. . DISCONTINUED MEDICATIONS: 1. Naproxen 500 mg p.o. b.i.d. 2. Aspirin 81 mg p.o. daily. HISTORY OF PRESENT ILLNESS/HOSPITAL COURSE: The patient is a 74-year-old female with a past medical history notable for vascular dementia as well as hypertension, diabetes, hyperlipidemia, hypothyroidism, who presents to the emergency department for evaluation after being notified by her primary care physician of an abnormally low hemoglobin. In outpatient setting, the patient had been evaluated for weakness and fatigue and found to have a hemoglobin of 4.7. She was subsequently instructed to present to the emergency department. However, it should be noted that she did not present immediately because she felt too weak and/or fatigued to get to the car. She endorsed shortness of breath, dizziness, constipation, but denied chest pain, black or bloody stools, hemoptysis. Of note, she reports 55 pounds weight loss, although she states the majority of this was during her hospitalization and rehab stay for an acute cerebrovascular accident in September or October 2019. During the past admission, she was evaluated for hallucinations, presumed to be secondary to urinary tract infection, although since that time, they have required treatment daily with Abilify and Haldol. The patient endorses an episode of epistaxis, which resolved while holding pressure to her nose for approximately 10 minutes. She believes she has had a colonoscopy in the past, but is unsure of when this was performed or what the results were. The patient is regrettably a poor historian. She does note frequent nose bleed secondary to a nasal fracture 25 years prior. Her was with her throughout her hospitalization, but regrettably, he was a poor historian as well. In the emergency department, the patient was found to have a hemoglobin of 5.1 and she was transfused 1 unit of packed red blood cells. Throughout her hospitalization, she received an additional unit of packed red blood cells, was subsequently stabilized and transferred to the telemetry floor for further observation. GI was consulted, who performed an EGD/colonoscopy. The results of which are mentioned elsewhere in this document. Repeat CBCs demonstrated that her hemoglobin count was stable with the most recent hemoglobin value prior to discharge reading at 8.3. As the patient was stabilized and had no evidence of additional acute bleeding, she was subsequently prepped for discharge. Prior to discharge, the patient's vital signs were recorded as temperature 97.7, pulse 84 beats per minute, respirations 18 breaths per minute, oxygen saturation 97% on room air, blood pressure 164/80. Laboratory analysis revealed a white blood cell count of 11.2, hemoglobin of 8.3, hematocrit 26, platelet count 343. Chem panel revealed a sodium of 140, potassium 3.3, chloride 110, carbon dioxide 19, BUN 8, creatinine 0.92, , calcium 8.3, iron 21, total iron-binding capacity 371, total iron binding capacity percent saturation 6, ferritin 59.3, total bilirubin 0.3, AST 24, ALT 14, alkaline phosphatase 47, CK-MB 1.5, total serum protein 6.2, vitamin B12 of 222, folate 9.1. SARS COVID test was performed and the patient was found to be COVID negative. Of note, during the patient's hospitalization, CT scan showed mild edema of the gallbladder. As such, right upper quadrant ultrasound was performed, which demonstrated a positive sonographic Andino sign as well as a gallbladder sludge. However, there was no evidence of stones. A HIDA scan was subsequently performed, which demonstrated chronic cholecystitis rather than acute cholecystitis. As such, this patient was not evaluated for cholecystectomy and was instructed to follow up as an outpatient. DISPOSITION: Stable. DISCHARGE INSTRUCTIONS: 1. Location: Home. 2. Diet: Diabetic diet. 3. Activity: No restrictions. 4. Followup: The patient was encouraged to follow up with her primary care provider in 1 to 2 weeks in order to discuss her most recent hospitalization as well as ongoing management of her symptomatic anemia and continue to evaluate recently diagnosed chronic cholecystitis. Job ID: [id number]
--- NOTE | 2020-03-23 13:59 | EKG ---
Test Reason : Blood Pressure : / mmHG Vent. Rate : 062 BPM Atrial Rate : 062 BPM P-R Int : 100 ms QRS Dur : 080 ms QT Int : 446 ms P-R-T Axes : -07 013 053 degrees QTc Int : 452 ms Electronic atrial pacemaker Abnormal ECG Confirmed by HENRY CHAMPAGNE DO ([id number]), film or videotape editor BENITO IGNACIO ([id number]) on 03/23/2020 1:59:13 PM Referred By: Confirmed By:HENRY CHAMPAGNE DO
== END 2020-03-20 14:09 | disposition home health service (06) | DRG 811 ==
LOC: ERS 10:25 → 2NO 14:27
PROVIDERS: ADMIT Student in an Organized Health Care Education/Training Program; ATTEND Family Medicine
PROC: 30233N1 Transfusion of Nonautologous Red Blood Cells into Peripheral Vein, Percutaneous Approach (ICD-10-PCS; principal; 2020-03-18)
PROC: 0DB68ZX Excision of Stomach, Via Natural or Artificial Opening Endoscopic, Diagnostic (ICD-10-PCS; 2020-03-18)
DX: D50.9 Iron deficiency anemia, unspecified (principal); I21.A1 Myocardial infarction type 2; N17.9 Acute kidney failure, unspecified; D63.8 Anemia in other chronic diseases classified elsewhere; F01.50 Vascular dementia, unspecified severity, without behavioral disturbance, psychotic disturbance, mood disturbance, and anxiety; E03.9 Hypothyroidism, unspecified; I25.10 Atherosclerotic heart disease of native coronary artery without angina pectoris; E78.5 Hyperlipidemia, unspecified; K81.1 Chronic cholecystitis; I12.9 Hypertensive chronic kidney disease with stage 1 through stage 4 chronic kidney disease, or unspecified chronic kidney disease; E11.22 Type 2 diabetes mellitus with diabetic chronic kidney disease; K27.9 Peptic ulcer, site unspecified, unspecified as acute or chronic, without hemorrhage or perforation; R63.4 Abnormal weight loss; Z68.25 Body mass index [BMI] 25.0-25.9, adult; Z86.73 Personal history of transient ischemic attack (TIA), and cerebral infarction without residual deficits; Z95.0 Presence of cardiac pacemaker
CPT/HCPCS: 36415; 36416; 36430; 71045; 74177; 76705; 78227; 80048; 80053; 82270; 82553; 82607; 82728; 82746; 83540; 83550; 84484; 85025; 85046; 85060; 86850; 86900; 86901; 87040; 87635; 88305; 88312; 93005; 96374; 96375; A9537; C9113; J1200; J2704; J2920; J3480; J7050; P9016; Q0163; Q9967; S0028; U0003

== ENCOUNTER 2020-03-29 00:35 | Inpatient (IN) | payer MEDICARE ==
[2020-03-29 01:13] LABS: #Eosinphils 0.2 thou/uL (0.0-0.7); #Lymphocytes 1.9 thou/uL (1.20-3.40); #Monocytes 1.3 thou/uL (0.11-0.59); #Neutrophils 11.5 thou/uL (1.40-6.50); %Basophils 0.3 % (0.0-1.0); %Eosinophils 1.3 % (0.0-10.0); %Lymphocytes 12.6 % (21.0-51.0); %Monocytes 8.5 % (0.0-10.0); %Neutrophils 77.3 % (42.0-75.0); Hemoglobin 9.6 g/dL (12.0-16.0); Mean Corpuscular HGB CONC 32.3 g/dL (32.0-36.0); Mean Corpuscular Hemoglobin 27.2 pg (27.0-31.0); Mean Corpuscular Volume 84.3 fL (78.0-98.0); Mean Platelet Volume 8.5 fL (7.4-10.4); Platelet Count 285 thou/uL (130-400); RBC Distribution Width 18.4 % (11.5-14.5); Red Blood Cell (RBC) Count 3.54 mill/uL (4.20-5.40); White Blood Cell (WBC) Count 14.8 thou/uL (4.8-10.8)
[2020-03-29 01:34] LABS: ALT (SGPT) 11 U/L (8-55); AST (SGOT) 26 U/L (5-34); Albumin 3.3 g/dL (3.4-4.8); Alkaline Phosphatase 54 U/L (40-110); Anion Gap 15 mmol/L (10-20); BUN (Urea Nitrogen) 15 mg/dL (9.8-20.1); Bilirubin, Total 0.6 mg/dL (0.2-1.2); Calc. Creatinine Clearance 0 mL/min (70-130); Calcium 8.7 mg/dL (7.8-10.44); Carbon Dioxide 20 mmol/L (23-31); Chloride 106 mmol/L (98-107); Globulin 3.1 g/dL (2.4-3.5); Glucose 92 mg/dL (83-110); Protein, Total 6.4 g/dL (5.8-8.1); Sodium 137 mmol/L (136-145)
[2020-03-29] MEDS ORDERED: Furosemide 100 MG/10 ML VIAL ONE (03:04)
[2020-03-29] MEDS ORDERED: Acetaminophen 325 MG TAB PO PRN (03:31)
[2020-03-29] MEDS ORDERED: Calcium Carbonate 500 MG ChewTAB PO PRN (03:31)
[2020-03-29] MEDS ORDERED: Acetaminophen 650 MG Suppository PR PRN (03:31)
[2020-03-29] MEDS ORDERED: Senokot 8.6 MG TAB PO PRN (03:53)
[2020-03-29] MEDS ORDERED: Dextrose 5% in Water 1,000 ML IV PRN (03:54)
[2020-03-29] MEDS ORDERED: Dextrose 50% Abboject 50 ML SYRINGE SLOW IVP PRN (03:54)
[2020-03-29] MEDS ORDERED: HumaLOG 300 UNITS/3 ML VIAL SC PRN (03:54)
[2020-03-29] MEDS ORDERED: Albuterol Sulfate 1.25 MG/3 ML NEB NEB PRN (04:04)
[2020-03-29 05:42] VITALS: BMI 24.4
[2020-03-29] MEDS: Levothyroxine Sodium 25 MCG TAB PO SCH (06:37)
[2020-03-29] MEDS: Polyethylene Glycol 3350 17 GM Packet PO SCH (07:59)
[2020-03-29] MEDS: Enoxaparin Sodium 40 MG/0.4 ML SYRINGE SC SCH (07:59)
[2020-03-29] MEDS: Ferrous Sulfate 325 MG TAB PO SCH (08:00)
[2020-03-29] MEDS: Venlafaxine HCl XR 75 MG CAP PO SCH ×2 (08:00→20:02)
[2020-03-29] MEDS: Amlodipine 5 MG TAB PO SCH (08:01)
[2020-03-29] MEDS: Clopidogrel Bisulfate 75 MG TAB PO SCH (08:01)
[2020-03-29] MEDS: Aripiprazole 10 MG TAB PO SCH (08:01)
[2020-03-29] MEDS ORDERED: Furosemide 40 MG/4 ML VIAL SLOW IVP SCH (09:00)
[2020-03-29] MEDS ORDERED: Mirtazapine 15 MG Soltab PO SCH (09:00)
[2020-03-29 14:22] LABS: SARS-CoV-2 PCR by NAA Not Detected (NotDetected)
[2020-03-29] MEDS ORDERED: Haloperidol 1 MG TAB PO SCH (21:00)
[2020-03-29] MEDS ORDERED: Atorvastatin Calcium 40 MG TAB PO SCH (21:00)
[2020-03-30 05:16] LABS: #Eosinphils 0.4 thou/uL (0.0-0.7); #Monocytes 1.2 thou/uL (0.11-0.59); #Neutrophils 5.9 thou/uL (1.40-6.50); %Basophils 0.2 % (0.0-1.0); %Lymphocytes 28.5 % (21.0-51.0); %Monocytes 11.6 % (0.0-10.0); %Neutrophils 55.8 % (42.0-75.0); Hemoglobin 10.2 g/dL (12.0-16.0); Mean Corpuscular HGB CONC 32.3 g/dL (32.0-36.0); Mean Corpuscular Hemoglobin 26.7 pg (27.0-31.0); Mean Corpuscular Volume 82.8 fL (78.0-98.0); Mean Platelet Volume 8.4 fL (7.4-10.4); Platelet Count 333 thou/uL (130-400); RBC Distribution Width 18.3 % (11.5-14.5); Red Blood Cell (RBC) Count 3.81 mill/uL (4.20-5.40); White Blood Cell (WBC) Count 10.5 thou/uL (4.8-10.8)
[2020-03-30] MEDS: Levothyroxine Sodium 25 MCG TAB PO SCH (05:48)
[2020-03-30 05:49] LABS: ALT (SGPT) 11 U/L (8-55); AST (SGOT) 27 U/L (5-34); Albumin 3.3 g/dL (3.4-4.8); Alkaline Phosphatase 54 U/L (40-110); Anion Gap 14 mmol/L (10-20); BUN (Urea Nitrogen) 20 mg/dL (9.8-20.1); Bilirubin, Total 0.6 mg/dL (0.2-1.2); Calc. Creatinine Clearance 36 mL/min (70-130); Calcium 9.2 mg/dL (7.8-10.44); Carbon Dioxide 26 mmol/L (23-31); Chloride 101 mmol/L (98-107); Globulin 3.7 g/dL (2.4-3.5); Glucose 84 mg/dL (83-110); Potassium 3.3 mmol/L (3.5-5.1); Sodium 138 mmol/L (136-145)
[2020-03-30] MEDS ORDERED: Potassium Chloride 20 MEQ TAB PO SCH (06:15)
[2020-03-30] MEDS: Enoxaparin Sodium 40 MG/0.4 ML SYRINGE SC SCH (09:46)
[2020-03-30] MEDS: Venlafaxine HCl XR 75 MG CAP PO SCH (09:47)
[2020-03-30] MEDS: Ferrous Sulfate 325 MG TAB PO SCH (09:48)
[2020-03-30] MEDS: Aripiprazole 10 MG TAB PO SCH (09:48)
[2020-03-30] MEDS: Amlodipine 5 MG TAB PO SCH (09:49)
[2020-03-30] MEDS: Clopidogrel Bisulfate 75 MG TAB PO SCH (09:50)
[2020-03-30] MEDS: Polyethylene Glycol 3350 17 GM Packet PO SCH (09:50)
[2020-03-30 10:03] LABS: Magnesium 1.8 mg/dL (1.6-2.6); Phosphorus 4.2 mg/dL (2.3-4.7)
[2020-03-30 16:12] VITALS: BP 117/54; TEMP 98
== END 2020-03-30 17:12 | disposition home or self-care (01) | DRG 292 ==
LOC: ERS 00:35 → 2SW 02:18
PROVIDERS: ADMIT Family Medicine; ATTEND Family Medicine
DX: I11.0 Hypertensive heart disease with heart failure (principal); I69.351 Hemiplegia and hemiparesis following cerebral infarction affecting right dominant side; I50.33 Acute on chronic diastolic (congestive) heart failure; E78.5 Hyperlipidemia, unspecified; E11.9 Type 2 diabetes mellitus without complications; D64.9 Anemia, unspecified; I35.0 Nonrheumatic aortic (valve) stenosis; K27.9 Peptic ulcer, site unspecified, unspecified as acute or chronic, without hemorrhage or perforation; Z66 Do not resuscitate; Z20.828 Contact with and (suspected) exposure to other viral communicable diseases; Z95.0 Presence of cardiac pacemaker; Z90.710 Acquired absence of both cervix and uterus; Z98.890 Other specified postprocedural states; Z88.6 Allergy status to analgesic agent; Z91.013 Allergy to seafood; Z88.8 Allergy status to other drugs, medicaments and biological substances; Z91.041 Radiographic dye allergy status; Z79.4 Long term (current) use of insulin; Z79.82 Long term (current) use of aspirin; Z79.899 Other long term (current) drug therapy; Z79.51 Long term (current) use of inhaled steroids
CPT/HCPCS: 36415; 36416; 71045; 80053; 83735; 83880; 84100; 84484; 85025; 87635; 93005; 96374; J1650; J1940; U0003; U0005

== ENCOUNTER 2020-04-13 22:50 | Emergency (ER) | payer MEDICARE ==
[2020-04-14 00:33] LABS: Hemoglobin 11.8 g/dL (12.0-16.0); Mean Corpuscular HGB CONC 31.3 g/dL (32.0-36.0); Mean Corpuscular Hemoglobin 25.6 pg (27.0-31.0); Mean Corpuscular Volume 81.9 fL (78.0-98.0); Mean Platelet Volume 9.9 fL (7.4-10.4); Platelet Count 252 thou/uL (130-400); RBC Distribution Width 18.2 % (11.5-14.5); Red Blood Cell (RBC) Count 4.61 mill/uL (4.20-5.40)
[2020-04-14] MEDS ORDERED: Orphenadrine Citrate 60 MG/2 ML VIAL IM SCH (00:45)
[2020-04-14 00:54] LABS: ALT (SGPT) 9 U/L (8-55); AST (SGOT) 22 U/L (5-34); Albumin 3.7 g/dL (3.4-4.8); Alkaline Phosphatase 54 U/L (40-110); Anion Gap 17 mmol/L (10-20); BUN (Urea Nitrogen) 26 mg/dL (9.8-20.1); Bilirubin, Total 0.6 mg/dL (0.2-1.2); CK (CPK) 17 U/L (29-168); Calc. Creatinine Clearance 0 mL/min (70-130); Calcium 9.4 mg/dL (7.8-10.44); Carbon Dioxide 21 mmol/L (23-31); Chloride 106 mmol/L (98-107); Globulin 3.7 g/dL (2.4-3.5); Glucose 129 mg/dL (83-110); Potassium 3.7 mmol/L (3.5-5.1); Protein, Total 7.4 g/dL (5.8-8.1); Sodium 140 mmol/L (136-145)
[2020-04-14 01:13] LABS: Lymphocytes 14 % (21-51); MDiff Complete? YES; Monocytes 3 % (0-10); Neutrophil 83 % (42-75); Platelet Morphology Comment Appears Adequate
--- NOTE | 2020-04-14 08:29 | RAD ---
SINGLE VIEW CHEST: Date: 04/14/2020 INDICATION: History of weakness. COMPARISON: Prior exam dated 03/29/2020. IMPRESSION: There has been significant improvement in bilateral perihilar interstitial and ground-glass opacities . Mild residual expected scarring and bronchiectasis is seen within the right perihilar region. Left lung is clear. Dual lead pacemaker is unchanged. No pleural effusion or pneumothorax is evident. POS: BH
== END 2020-04-14 03:30 | disposition home or self-care (01) ==
LOC: ERS 22:50
DX: I69.341 Monoplegia of lower limb following cerebral infarction affecting right dominant side (principal); D72.829 Elevated white blood cell count, unspecified; M79.601 Pain in right arm; M79.604 Pain in right leg; E11.9 Type 2 diabetes mellitus without complications; I10 Essential (primary) hypertension; E78.5 Hyperlipidemia, unspecified; Z79.4 Long term (current) use of insulin; Z79.82 Long term (current) use of aspirin; Z79.899 Other long term (current) drug therapy
CPT/HCPCS: 36415; 71045; 80053; 82550; 85025; 93005; 96372; J2360

== ENCOUNTER 2020-05-01 19:25 | Inpatient (IN) | payer MEDICARE ==
[2020-05-01] MEDS ORDERED: Piperacillin/Tazobactam 4.5 GM VIAL ONE (20:12)
[2020-05-01 20:25] LABS: Bacteria/HPF 4+ HPF (None Seen); Bilirubin Negative (Negative); Blood, Urine 1+ (Negative); Clarity Turbid (Clear); Glucose, Urine (Dipstick) Normal (Negative); Ketone, Urine Negative (Negative); Leukocyte 500 Leu/uL (Negative); Nitrite Negative (Negative); Protein, Urine (Dipstick) 20 mg/dL (Neg-Trace); RBC/HPF 0-3 HPF (0-3); Specific Gravity, Urine 1.019 (1.002-1.036); Squamous Epithelial None Seen HPF (0-3); Urobilinogen Normal mg/dL (Less than 2); WBC/HPF 21-50 HPF (0-3)
--- NOTE | 2020-05-01 20:35 | RAD ---
SINGLE VIEW OF THE CHEST: 05/01/20 COMPARISON: 04/14/20 HISTORY: Stroke in September with right sided deficit. Altered mental status. FINDINGS: Single view of the chest shows an enlarged cardiomediastinal silhouette with atherosclerotic calcific ations in the aorta. The pacemaker is unchanged in position. There is no evidence of consolidation, m ass, or pleural effusion. IMPRESSION: No evidence of acute cardiopulmonary disease. POS: EAA
[2020-05-01 20:37] LABS: Hemoglobin 9.1 g/dL (12.0-16.0); Mean Corpuscular HGB CONC 32.3 g/dL (32.0-36.0); Mean Corpuscular Hemoglobin 25.4 pg (27.0-31.0); Mean Corpuscular Volume 78.8 fL (78.0-98.0); Mean Platelet Volume 9.4 fL (7.4-10.4); Platelet Count 324 thou/uL (130-400); RBC Distribution Width 17.8 % (11.5-14.5); Red Blood Cell (RBC) Count 3.57 mill/uL (4.20-5.40); White Blood Cell (WBC) Count 28.5 thou/uL (4.8-10.8)
--- NOTE | 2020-05-01 20:46 | CT ---
CT OF THE BRAIN WITHOUT CONTRAST: 05/01/20 COMPARISON: 10/26/19 HISTORY: Previous stroke with right sided deficit. Altered mental status and urinary complaints. TECHNIQUE: Multiple contiguous axial images were obtained in a CT of the brain without contrast. FINDINGS: There is scattered hypodensities the subcortical and periventricular white matter likely secondary to small vessel ischemic disease. Stable encephalomalacia is seen in the left frontal lobe. No new larg e confluent infarction is seen. There is no evidence of hydrocephalus, intracranial hemorrhage, or ex tra-axial fluid collections. The calvarium and overlying soft tissues are unremarkable. The visualized paranasal sinuses and masto id air cells are well aerated. IMPRESSION: No evidence of acute intracranial abnormality. POS: EZEQUIELA
[2020-05-01 20:58] LABS: ALT (SGPT) 17 U/L (8-55); AST (SGOT) 37 U/L (5-34); Albumin 3.3 g/dL (3.4-4.8); Alkaline Phosphatase 60 U/L (40-110); Anion Gap 16 mmol/L (10-20); BUN (Urea Nitrogen) 30 mg/dL (9.8-20.1); Bilirubin, Total 0.8 mg/dL (0.2-1.2); Calc. Creatinine Clearance 0 mL/min (70-130); Calcium 9.3 mg/dL (7.8-10.44); Carbon Dioxide 23 mmol/L (23-31); Chloride 104 mmol/L (98-107); Globulin 4.1 g/dL (2.4-3.5); Glucose 83 mg/dL (83-110); Protein, Total 7.4 g/dL (5.8-8.1); Sodium 140 mmol/L (136-145)
[2020-05-01 21:04] LABS: Band 3 % (5-11); Hypochromia SLIGHT = 6-15 cells (100X) (0-5/hpf); Lymphocytes 13 % (21-51); MDiff Complete? YES; Monocytes 9 % (0-10); Neutrophil 75 % (42-75); Platelet Morphology Comment Appears Adequate
[2020-05-01 21:19] LABS: CKMB 0.3 ng/mL (0-6.6)
[2020-05-01] MEDS ORDERED: D5 1/2 NS w/40 mEq KCL 1,000 ML IV SCH (22:00)
[2020-05-01] MEDS ORDERED: Vancomycin 1 GM/200 ML BAG ONE (22:38)
[2020-05-01] MEDS ORDERED: Potassium Chloride 20 MEQ TAB ONE (22:38)
--- NOTE | 2020-05-01 23:33 | PDOC.FPRHP ---
- History of Present Illness Chief Complaint: AMS History of Present Illness: Pt is a 74 yo female with PMH significant for HFpEF, Aortic Stenosis, Hypothyroid, DM II, HLD, Vascular dementia, HTN, CAD, Pancreatic cyst, PUD, Iron Def Anemia, Chronic Cholecystitis who presents for altered mental status. She was brought in by her . Pt was AAO x 3 on my examination. She had fairly good short term memory. Notes she began feeling poor over the last 2-3 days. Decrease PO intake but denies N/V. Endorsed fevers, increased urinary frequency. Of note, she has an 85 # weight loss after her stroke. She uses SSI at home w/o metformin, long acting insulin. She has R sided weakness after her previous CVA. She was recently discharged with iron def anemia likely 2/2 PUD. Colonoscopy performed did not find evidence of an acute bleed. She has been taking iron supplementation. She is supposed to follow with Dr. Pickett but has not seen him since discharge. She denies blood in stool. ED Course: Given zosyn, vanc, 1 L NS, potassium - Allergies/Adverse Reactions Allergies Allergy/AdvReac Type Severity Reaction Status Date / Time Iodine and Iodide Containing Allergy Verified 10/27/19 01:51 Produc meperidine HCl [From Demerol] Allergy Verified 10/27/19 01:51 propoxyphene HCl Allergy Verified 10/27/19 01:51 [From Darvon] shellfish derived Allergy Verified 10/27/19 01:51 - Home Medications Medication Instructions Recorded Confirmed Type ARIPiprazole [Aripiprazole] 5 mg PO HS 03/29/20 05/02/20 History Amlodipine [Norvasc] 10 mg PO DAILY 03/29/20 05/02/20 History Clopidogrel Bisulfate [Clopidogrel] 75 mg PO DAILY 03/29/20 05/02/20 History Fenofibrate 145 mg PO DAILY 03/29/20 05/02/20 History Ferrous Sulfate 325 mg PO QAM 03/29/20 05/02/20 History Haloperidol 1 mg PO DAILY 03/29/20 05/02/20 History Insulin Lispro [Insulin Lispro 5 - 10 unit SQ BID 03/29/20 05/02/20 History Kwikpen U-100] Levothyroxine Sodium 25 mcg PO DAILY 03/29/20 05/02/20 History Metoprolol Succinate [Toprol XL] 50 mg PO DAILY 03/29/20 05/02/20 History Pantoprazole [Protonix] 40 cap PO BID 03/29/20 05/02/20 History Venlafaxine HCl [Venlafaxine HCl 1 cap PO BID 03/29/20 05/02/20 History ER] Atorvastatin Calcium [Lipitor] 40 mg PO DAILY 30 Days #30 tab 03/30/20 05/02/20 Rx Furosemide [Lasix] 20 mg PO DAILY 30 Days #30 tablet 03/30/20 05/02/20 Rx - History PMHx: HFpEF, Aortic Stenosis, Hypothyroid, IDDM2, HLD, Vascular dementia, HTN, CAD, Pancreatic cyst, CKD II, Pacemaker, PUD, Hx of recent GI Bleed, Anemia, Chronic Cholecystitis PSHx: s/p pacemaker, hysterectomy, L4-L5 fusion FHx: CAD, heart failure, cousin with melanoma, denies other family hx cancers Social: denies tobacco, etoh, drug use - Review of Systems General: reports: fever/chills, weight/appetite/sleep changes Eyes: denies: eye pain, vision changes ENT: denies: nasal congestion, rhinorrhea Respiratory: denies: cough, congestion, shortness of breath Cardiovascular: denies: chest pain, palpitation, edema Gastrointestinal: denies: nausea, vomiting, diarrhea, constipation, GI bleeding Genitourinary: reports: incontinence, polyuria. denies: dysuria Skin: denies: rashes, lesions Musculoskeletal: denies: pain, tenderness Neurological: reports: weakness. denies: numbness, syncope Psychological: denies: anxiety, depression - Vital signs BP: 95/49 HR: 76 RR: 19 Tmax: 100 Pox: 96% on RA Wt: 65kg - Physical Exam Constitutional: NAD, awake, alert and oriented -Constitutional: AAO x 3 with decent short term memory HEENT: PERRLA, EOMI Neck: FROM, trachea midline Heart: RRR, pulses present, no edema -Heart: systolic murmur Lungs: CTAB, no respiratory distress, no rales/rhonchi, no wheezing Abdomen: soft, non-tender, bowel sounds present, no hernias -Abdomen: no pelvic pressure -Neurological: Strength 3/5 on R side, L side 5/5 Skin: no rash/lesions, good turgor Heme/Lymphatic: no purpura, no petechia Psychiatric: normal mood and affect, intact recent and remote memory FMR H&P: Results - Labs Result Diagrams: 05/02/20 04:15 05/02/20 04:15 Lab results: WBC 28.5 thou/uL (4.8-10.8) H 05/01/20 20:21 Hgb 9.1 g/dL (12.0-16.0) L 05/01/20 20:21 Hct 28.1 % (36.0-47.0) L 05/01/20 20:21 MCV 78.8 fL (78.0-98.0) 05/01/20 20:21 Plt Count 324 thou/uL (130-400) 05/01/20 20:21 Band Neuts % (Manual) 3 % (5-11) L 05/01/20 20:21 Sodium 140 mmol/L (136-145) 05/01/20 20:21 Potassium 3.0 mmol/L (3.5-5.1) L 05/01/20 20:21 Chloride 104 mmol/L (98-107) 05/01/20 20:21 Carbon Dioxide 23 mmol/L (23-31) 05/01/20 20:21 BUN 30 mg/dL (9.8-20.1) H 05/01/20 20:21 Creatinine 1.54 mg/dL (0.6-1.1) H 05/01/20 20:21 Glucose 83 mg/dL (83-110) 05/01/20 20:21 Lactic Acid 1.1 mmol/L (0.5-2.2) 05/01/20 20:21 Calcium 9.3 mg/dL (7.8-10.44) 05/01/20 20:21 Total Bilirubin 0.8 mg/dL (0.2-1.2) 05/01/20 20:21 AST 37 U/L (5-34) H 05/01/20 20:21 ALT 17 U/L (8-55) 05/01/20 20:21 Alkaline Phosphatase 60 U/L (40-110) 05/01/20 20:21 CK-MB (CK-2) 0.3 ng/mL (0-6.6) 05/01/20 20:21 Serum Total Protein 7.4 g/dL (5.8-8.1) 05/01/20 20:21 Albumin 3.3 g/dL (3.4-4.8) L 05/01/20 20:21 Urine Ketones Negative mg/dL (Negative) 05/01/20 19:47 Urine Blood 1+ (Negative) A 05/01/20 19:47 Urine Nitrite Negative (Negative) 05/01/20 19:47 Ur Leukocyte Esterase 500 Erika/uL (Negative) A 05/01/20 19:47 Urine RBC 0-3 HPF (0-3) 05/01/20 19:47 Urine WBC 21-50 HPF (0-3) A 05/01/20 19:47 Ur Squamous Epith Cells None Seen HPF (0-3) 05/01/20 19:47 Urine Bacteria 4+ HPF (None Seen) A 05/01/20 19:47 FMR H&P: A/P - Plan # Complicated UTI # Sepsis 2/2 UTI # Metabolic Encephalopathy 2/2 UTI Hx of fairly pansensitive Klebsiella pneumoniae (10/26/19), Citrobacter braakii (12/20/19). Hx of E. coli with < 100,000 CFUs 09/25/19 resistant to ciprofloxacin, cephalosporins. Intermediate resistance to Zosyn. -Continue zosyn -d/c vanc -fluid resuscitate -procal pending, trend -Hold Haldol # JARED Likely 2/2 dehydration -Trend with labs -Fluid resuscitate # Hypokalemia -K given in ED -Monitor # CAD # Indeterminate trop -Trend trops # HFpEF -Monitor for overload # Vascular Dementia -Likely contributing to mental status # HTN -Hold medications # Iron Defiency Anemia -Scoped recently w/o evidence active bleeding but noted peptic ulcer disease. -Continue iron, PPI -Monitor for drop with AM labs, previously 03/29/20 9.6/29.8, 03/30/20 10.2/31.5, 04/14/20 11.8/37.7 -Hold ASA, plavix until am labs checked # IDDM2 No longer taking long acting insulin, metformin -SSI # Aortic Stenosis -Was told during last admission to follow up with CV surg to assess #Hypothyroid #HLD, # Pancreatic cyst #Chronic Cholecystitis Fluids: LR 110 mls/hr Diet: HH, CC VTE: SCDs Code: Chest compressions, No intubation; discussed with Dispo: admit to inpatient, tele FMR H&P: Upper Level - Plan Date/Time: 05/01/202326 I, [], have evaluated this patient and agree with findings/plan as outlined by exercise science internship resident. Pertinent changes/additions are listed here. Addendum - Attending - Attending Attestation Date/Time: 05/01/202331 I personally evaluated the patient and discussed the management with Dr. Raymond via telehealth. Patient consented and agreed to evaluation via telehealth. I agree with the History, Examination, Assessment and Plan documented above with any addition or exceptions noted below. 74 yo female with dementia, HFrEF, aortic stenosis, hx of CVA to name a few admitted for AMS. Patient noted to have concerns for UTI. Noted to meet sepsis criteria. Initially noted to be encephalopathic but improved with IVFs and antibx. BP stable. Previous urine cultures reviewed. Concerned for possible colonization due to mild urinary retention/incontinency. At this time not need to suspect ESBL producing bacteria. Will continue Zosyn at this time. Switch to carbapenum as needed. Continue IVFs at this time. Blood and urine cultures pending. Admit to tele due to risk for difficult fluid balance. Hold antipsychotics at this time. Monitor closely for . ABrayMD
[2020-05-02] MEDS ORDERED: Albuterol 200 PUFF (6.7GM INHALER) INH PRN (00:10)
[2020-05-02 00:51] LABS: Troponin I 0.062 ng/mL (< 0.028)
[2020-05-02] MEDS ORDERED: Dextrose 50% Abboject 50 ML SYRINGE SLOW IVP PRN (01:24)
[2020-05-02] MEDS ORDERED: Dextrose 5% in Water 1,000 ML IV PRN (01:24)
[2020-05-02] MEDS ORDERED: HumaLOG 300 UNITS/3 ML VIAL SC PRN ×2 (01:24)
[2020-05-02 02:35] VITALS: BMI 23.7
[2020-05-02 04:32] LABS: #Basophils 0.1 thou/uL (0.0-0.2); #Eosinphils 0.1 thou/uL (0.0-0.7); #Neutrophils 17.5 thou/uL (1.40-6.50); %Basophils 0.4 % (0.0-1.0); %Eosinophils 0.6 % (0.0-10.0); %Lymphocytes 13.1 % (21.0-51.0); %Monocytes 8.7 % (0.0-10.0); %Neutrophils 77.2 % (42.0-75.0); Hemoglobin 9.9 g/dL (12.0-16.0); Mean Corpuscular HGB CONC 31.3 g/dL (32.0-36.0); Mean Platelet Volume 9.4 fL (7.4-10.4); Platelet Count 287 thou/uL (130-400); RBC Distribution Width 17.7 % (11.5-14.5); Red Blood Cell (RBC) Count 3.95 mill/uL (4.20-5.40); White Blood Cell (WBC) Count 22.6 thou/uL (4.8-10.8)
[2020-05-02] MEDS: Lactated Ringer's 1,000 ML IV SCH ×3 (04:41→20:39)
[2020-05-02] MEDS: Piperacillin/Tazobactam 2.25 GM in Sodium Chloride 0.9% 100 ML IVPB SCH ×4 (04:41→23:51)
[2020-05-02 04:48] LABS: Troponin I 0.068 ng/mL (< 0.028)
[2020-05-02 05:01] LABS: Anion Gap 15 mmol/L (10-20); BUN (Urea Nitrogen) 27 mg/dL (9.8-20.1); Calc. Creatinine Clearance 36 mL/min (70-130); Calcium 9.3 mg/dL (7.8-10.44); Carbon Dioxide 24 mmol/L (23-31); Chloride 105 mmol/L (98-107); Glucose 71 mg/dL (83-110); Potassium 3.6 mmol/L (3.5-5.1); Sodium 140 mmol/L (136-145)
[2020-05-02 05:53] LABS: SARS-CoV-2 PCR by NAA Not Detected (NotDetected)
[2020-05-02] MEDS: Levothyroxine Sodium 25 MCG TAB PO SCH (06:31)
--- NOTE | 2020-05-02 06:50 | PDOC.FM ---
- Subjective Subjective: No acute overnight events. Unreliable historian. Reports she is feeling well this AM. Denies abdominal pain, dysuria, malaise. - Objective Vital Signs & Weight: Vital Signs (12 hours) Temp Pulse Resp BP Pulse Ox 05/02/20 04:00 98.1 F 72 16 133/58 L 99 05/02/20 01:19 97.9 F 67 18 121/60 95 Weight Weight 60.736 kg Result Diagrams: 05/02/20 04:15 05/02/20 04:15 EKG Reviewed by me: Yes (NSR on tele overnight) Phys Exam - Physical Examination Constitutional: NAD HEENT: moist MMs, sclera anicteric male pattern baldness Neck: supple Respiratory: no wheezing, no rales, clear to auscultation bilateral Cardiovascular: RRR 3/6 systolic murmur Gastrointestinal: soft, non-tender, no distention, positive bowel sounds Musculoskeletal: no edema, pulses present 3/5 R sided weakness (chronic) Psychiatric: normal affect Deviation from normal: oriented to self, year; not oriented to location, forgetful of words Deviation from normal: pallor Dx/Plan - Plan Plan: Complicated UTI Sepsis 2/2 UTI, improved Metabolic Encephalopathy 2/2 UTI Hx of fairly pansensitive Klebsiella pneumoniae (10/26/19), Citrobacter braakii (12/20/19). Hx of E. coli with < 100,000 CFUs 09/25/19 resistant to ciprofloxacin, cephalosporins. Intermediate resistance to Zosyn. - Continue zosyn, f/u urine cx and de-escalate pending results - s/p fluid resuscitation, continue mIVF for now - initial procal 0.7, down trend to 0.6, will continue to monitor JARED Likely 2/2 dehydration - improving, trend labs - mIVF Hypokalemia - K given in ED, improved on AM labs - Monitor - continue home K CAD Indeterminate trop Trops trended, remain indeterminate. - continue tele monitoring, no additional intervention at this time given asymptomatic HFpEF - Monitor for overload Vascular Dementia - Likely contributing to mental status - will resume home haldol - will resume home plavix HTN - Hold medications due to borderline BPs Iron Defiency Anemia -Scoped recently w/o evidence active bleeding but noted peptic ulcer disease. -Continue iron, PPI - Hgb stable, will resumed home plavix IDDM2 No longer taking long acting insulin, metformin -SSI Aortic Stenosis -Was told during last admission to follow up with CV surg to assess #Hypothyroid #HLD, # Pancreatic cyst #Chronic Cholecystitis Fluids: LR 100 mls/hr Diet: HH, CC VTE: SCDs Code: Chest compressions, No intubation; discussed with Dispo: admit to inpatient, tele Addendum - Attending - Attending Attestation Date/Time: 05/02/20 [id number] I personally evaluated the patient and discussed the management with Dr. Owens. I agree with the History, Examination, Assessment and Plan documented above with any addition or exceptions noted below. appears to have improved mentation. awaiting urine culture for final antibiotic selection. PT/OT. Post acute screen.
[2020-05-02] MEDS: Fenofibrate Nanocrystallized 145 MG TAB PO SCH (08:23)
[2020-05-02] MEDS: Potassium Chloride 20 MEQ TAB PO SCH (08:24)
[2020-05-02] MEDS: Ferrous Sulfate 325 MG TAB PO SCH (08:24)
[2020-05-02] MEDS: Atorvastatin Calcium 40 MG TAB PO SCH (08:24)
[2020-05-02] MEDS: Docusate 100 MG CAP PO SCH ×2 (08:24→20:09)
[2020-05-02] MEDS: Venlafaxine HCl XR 75 MG CAP PO SCH ×2 (08:24→20:09)
[2020-05-02] MEDS ORDERED: Clopidogrel Bisulfate 75 MG TAB PO SCH (10:00)
[2020-05-03] MEDS ORDERED: Acetaminophen 500 MG TAB PO SCH (03:15)
[2020-05-03] MEDS: Levothyroxine Sodium 25 MCG TAB PO SCH (04:56)
[2020-05-03] MEDS: Piperacillin/Tazobactam 2.25 GM in Sodium Chloride 0.9% 100 ML IVPB SCH ×2 (04:56→10:00)
[2020-05-03 05:06] LABS: #Eosinphils 0.3 thou/uL (0.0-0.7); #Lymphocytes 1.9 thou/uL (1.20-3.40); #Monocytes 1.1 thou/uL (0.11-0.59); #Neutrophils 9.3 thou/uL (1.40-6.50); %Basophils 0.2 % (0.0-1.0); %Eosinophils 2.4 % (0.0-10.0); %Lymphocytes 15.3 % (21.0-51.0); %Monocytes 8.4 % (0.0-10.0); %Neutrophils 73.6 % (42.0-75.0); Hemoglobin 8.2 g/dL (12.0-16.0); Mean Corpuscular HGB CONC 31.3 g/dL (32.0-36.0); Mean Corpuscular Hemoglobin 24.7 pg (27.0-31.0); Mean Corpuscular Volume 78.8 fL (78.0-98.0); Mean Platelet Volume 9.6 fL (7.4-10.4); Platelet Count 289 thou/uL (130-400); RBC Distribution Width 17.5 % (11.5-14.5); Red Blood Cell (RBC) Count 3.33 mill/uL (4.20-5.40); White Blood Cell (WBC) Count 12.6 thou/uL (4.8-10.8)
[2020-05-03 05:41] LABS: Anion Gap 16 mmol/L (10-20); BUN (Urea Nitrogen) 18 mg/dL (9.8-20.1); Calc. Creatinine Clearance 44 mL/min (70-130); Calcium 8.8 mg/dL (7.8-10.44); Carbon Dioxide 20 mmol/L (23-31); Chloride 107 mmol/L (98-107); Glucose 77 mg/dL (83-110); Potassium 3.9 mmol/L (3.5-5.1); Sodium 139 mmol/L (136-145)
[2020-05-03] MEDS: Lactated Ringer's 1,000 ML IV SCH (05:56)
--- NOTE | 2020-05-03 07:31 | PDOC.FM ---
- Subjective Subjective: No acute overnight events. Reports she is feeling well this AM, no abdominal pain, dysuria, n/v. - Objective Vital Signs & Weight: Vital Signs (12 hours) Temp Pulse Resp BP Pulse Ox 05/03/20 04:00 97.9 F 75 25 H 119/57 L 99 05/03/20 00:00 70 05/02/20 19:45 98.2 F 69 13 108/55 L 99 Weight Weight 62.732 kg I&O: 05/02/20 05/03/20 05/04/20 06:59 06:59 06:59 Intake Total 2160 Balance 2160 Result Diagrams: 05/03/20 04:34 05/03/20 04:34 Phys Exam - Physical Examination Constitutional: NAD HEENT: moist MMs Neck: supple Respiratory: no wheezing, no rales, clear to auscultation bilateral Cardiovascular: RRR systolic murmur Gastrointestinal: soft, non-tender, no distention Musculoskeletal: no edema, pulses present Neurological: moves all 4 limbs chronic R sided weakness Psychiatric: normal affect Deviation from normal: pleasant, A&O x2-3 Skin: normal turgor, cap refill <2 seconds Dx/Plan - Plan Plan: Complicated UTI Sepsis 2/2 UTI, improved Metabolic Encephalopathy 2/2 UTI Hx of resistant infections in past. Urine cx this admission reveals burleson- sensitive E. coli. Initially started on zosyn due to hx of resistant infections. - will de-escalate abx to PO keflex today JARED Likely 2/2 dehydration - improving, trend labs - mIVF Hypokalemia - K given in ED, improved on AM labs - Monitor - continue home K CAD Indeterminate trop Trops trended, remain indeterminate. - continue tele monitoring, no additional intervention at this time given asymptomatic HFpEF - Monitor for overload Vascular Dementia - Likely contributing to mental status - will resume home haldol - will resume home plavix HTN - Hold medications due to borderline BPs Iron Defiency Anemia -Scoped recently w/o evidence active bleeding but noted peptic ulcer disease. -Continue iron, PPI - Recheck Hgb this afternoon due to drop to 8.2 IDDM2 No longer taking long acting insulin, metformin -SSI Aortic Stenosis -Was told during last admission to follow up with CV surg to assess #Hypothyroid #HLD, # Pancreatic cyst #Chronic Cholecystitis Fluids: LR 100 mls/hr Diet: HH, CC VTE: SCDs Code: Chest compressions, No intubation; discussed with Dispo: Likely DC to home with HH pending Hgb Addendum - Attending - Attending Attestation Date/Time: 05/03/20 1124 I personally evaluated the patient and discussed the management with Dr. Owens. I agree with the History, Examination, Assessment and Plan documented above with any addition or exceptions noted below. d/c home today on po keflex to treat UTI.
[2020-05-03] MEDS ORDERED: Clopidogrel Bisulfate 75 MG TAB PO SCH (09:00)
[2020-05-03] MEDS: Fenofibrate Nanocrystallized 145 MG TAB PO SCH (09:28)
[2020-05-03] MEDS: Ferrous Sulfate 325 MG TAB PO SCH (09:28)
[2020-05-03] MEDS: Venlafaxine HCl XR 75 MG CAP PO SCH (09:28)
[2020-05-03] MEDS: Potassium Chloride 20 MEQ TAB PO SCH ×2 (09:29→09:37)
[2020-05-03] MEDS: Atorvastatin Calcium 40 MG TAB PO SCH (09:29)
[2020-05-03] MEDS: Docusate 100 MG CAP PO SCH (09:37)
[2020-05-03] MEDS: Cephalexin 250 MG CAP PO SCH ×2 (11:36→17:25)
[2020-05-03 17:37] VITALS: BP 131/60; TEMP 98.8
--- NOTE | 2020-05-05 01:22 | DIS ---
DATE OF ADMISSION: 05/01/2020 DATE OF DISCHARGE: 05/03/2020 RESIDENT: Arabella Owens DO ADMITTING ATTENDING: Vicky Burnett MD DISCHARGE ATTENDING: Nnamdi Sears MD CONSULTS: None. PROCEDURES: CT head revealing stable encephalomalacia of the left frontal lobe. No acute intracranial problems. PRIMARY DIAGNOSIS: Urinary tract infection. SECONDARY DIAGNOSES: Acute kidney injury, hypokalemia, coronary artery disease, heart failure, preserved ejection fraction, vascular dementia, hypertension, iron deficiency anemia, type 2 diabetes, aortic stenosis, hypothyroid, hyperlipidemia, pancreatic cyst, and chronic cholecystitis. DISCHARGE MEDICATIONS: 1. Haldol 1 mg p.o. daily. 2. Aripiprazole 5 mg p.o. at bedtime. 3. Insulin lispro 5-10 units subcu b.i.d. 4. Levothyroxine 25 mcg p.o. daily. 5. Plavix 75 mg p.o. daily. 6. Amlodipine 10 mg p.o. daily. 7. Metoprolol 50 mg p.o. daily. 8. Ferrous sulfate 325 mg p.o. q.a.m. 9. Venlafaxine 75 mg extended release one cap p.o. b.i.d. 10. Pantoprazole 40 mg p.o. b.i.d. 11. Lasix 20 mg p.o. daily. 12. Atorvastatin 40 mg p.o. daily. 13. Keflex 250 mg p.o. q.6 hours to be completed after 10 doses. 14. Fenofibrate 145 mg p.o. daily. DISCONTINUED MEDICATIONS: None. HISTORY OF PRESENT ILLNESS AND HOSPITAL COURSE: Ms. Crowell is a 74-year-old female with past medical history significant for vascular dementia, CVA with persistent right-sided weakness, multiple cardiac issues, and iron deficiency anemia secondary to peptic ulcer disease, who was brought in by her for change in mental status. He reports that she has been feeling poor over the past 2-3 days before admission with decreased p.o. intake and worsening of confusion. A CT of her head in the ER revealed no acute findings. Urinalysis was indicative of a urinary tract infection. She was given vancomycin and Zosyn for this in the emergency room. Due to history of resistant urinary tract infections in the past, she was admitted and continued on Zosyn. Her Haldol was held due to this possible metabolic encephalopathy secondary to urinary tract infection. Urine culture was collected and revealed E coli, which was pansensitive. Her mental status did improve with antibiotics. She was transitioned to p.o. Keflex and discharged to home with Home Health as both the patient and her prefer that she stays at home with him to take care of her. Her hemoglobin was between 8 and 9 during this admission, which appears to be near her baseline. She has been taking Plavix outpatient and a recent GI bleed and has apparently been tolerating this well. We did discuss the risks and benefits of continuing anticoagulation with respect to risk of bleeding versus risk of another stroke. The patient and her prefer to continue the Plavix. DISPOSITION: Stable. DISCHARGE INSTRUCTIONS: 1. Location: Home with Home Health. 2. Diet: Carb consistent diet. 3. Activity: As tolerated. 4. Followup: With her PCP, Dr. Fletcher at [facility]. Job ID: [id number]
== END 2020-05-03 18:30 | disposition home health service (06) | DRG 871 ==
LOC: ERS 19:25 → 2NO 23:38
PROVIDERS: ADMIT Student in an Organized Health Care Education/Training Program; ATTEND Student in an Organized Health Care Education/Training Program
DX: A41.51 Sepsis due to Escherichia coli [E. coli] (principal); G93.41 Metabolic encephalopathy; N39.0 Urinary tract infection, site not specified; N17.9 Acute kidney failure, unspecified; I50.32 Chronic diastolic (congestive) heart failure; K86.2 Cyst of pancreas; I69.351 Hemiplegia and hemiparesis following cerebral infarction affecting right dominant side; F05 Delirium due to known physiological condition; E87.6 Hypokalemia; I25.10 Atherosclerotic heart disease of native coronary artery without angina pectoris; F01.50 Vascular dementia, unspecified severity, without behavioral disturbance, psychotic disturbance, mood disturbance, and anxiety; I11.0 Hypertensive heart disease with heart failure; D50.9 Iron deficiency anemia, unspecified; E11.9 Type 2 diabetes mellitus without complications; I35.0 Nonrheumatic aortic (valve) stenosis; E03.9 Hypothyroidism, unspecified; E78.5 Hyperlipidemia, unspecified; K81.1 Chronic cholecystitis; E86.0 Dehydration; R77.8 Other specified abnormalities of plasma proteins; Z88.8 Allergy status to other drugs, medicaments and biological substances; Z91.041 Radiographic dye allergy status; Z91.013 Allergy to seafood; Z79.899 Other long term (current) drug therapy; Z79.02 Long term (current) use of antithrombotics/antiplatelets; Z79.4 Long term (current) use of insulin; Z95.0 Presence of cardiac pacemaker; Z82.49 Family history of ischemic heart disease and other diseases of the circulatory system; Z80.8 Family history of malignant neoplasm of other organs or systems; Z87.11 Personal history of peptic ulcer disease; Z90.710 Acquired absence of both cervix and uterus
CPT/HCPCS: 36415; 36416; 51701; 70450; 71045; 80048; 80053; 81003; 81015; 82553; 83605; 84145; 84484; 85025; 87040; 87077; 87086; 87149; 87186; 87635; 93005; 96365; 96366; 96367; J2543; J3370; J3480; J3490; U0003; U0005

== ENCOUNTER 2020-05-29 20:00 | Emergency (ER) | payer MEDICARE ==
[2020-05-29 20:41] LABS: #Eosinphils 0.4 thou/uL (0.0-0.7); #Lymphocytes 1.7 thou/uL (1.20-3.40); #Monocytes 1.4 thou/uL (0.11-0.59); #Neutrophils 10.2 thou/uL (1.40-6.50); %Basophils 0.3 % (0.0-1.0); %Eosinophils 2.6 % (0.0-10.0); %Lymphocytes 12.1 % (21.0-51.0); %Monocytes 10.4 % (0.0-10.0); %Neutrophils 74.5 % (42.0-75.0); Hemoglobin 10.2 g/dL (12.0-16.0); Mean Corpuscular HGB CONC 31.9 g/dL (32.0-36.0); Mean Corpuscular Hemoglobin 25.6 pg (27.0-31.0); Mean Corpuscular Volume 80.3 fL (78.0-98.0); Mean Platelet Volume 9.9 fL (7.4-10.4); Platelet Count 238 thou/uL (130-400); RBC Distribution Width 19.2 % (11.5-14.5); Red Blood Cell (RBC) Count 3.98 mill/uL (4.20-5.40); White Blood Cell (WBC) Count 13.7 thou/uL (4.8-10.8)
[2020-05-29 21:08] LABS: ALT (SGPT) 20 U/L (8-55); AST (SGOT) 56 U/L (5-34); Albumin 3.2 g/dL (3.4-4.8); Alkaline Phosphatase 90 U/L (40-110); Anion Gap 17 mmol/L (10-20); BUN (Urea Nitrogen) 27 mg/dL (9.8-20.1); Bilirubin, Total 0.8 mg/dL (0.2-1.2); Calc. Creatinine Clearance 0 mL/min (70-130); Calcium 9.4 mg/dL (7.8-10.44); Carbon Dioxide 23 mmol/L (23-31); Chloride 99 mmol/L (98-107); Globulin 3.9 g/dL (2.4-3.5); Potassium 4.3 mmol/L (3.5-5.1); Protein, Total 7.1 g/dL (5.8-8.1); Sodium 135 mmol/L (136-145)
[2020-05-29 21:14] LABS: Glucose 58 mg/dL (83-110)
[2020-05-29] MEDS ORDERED: Famotidine/PF 20 mg/2ml Vial ONE (21:29)
[2020-05-29] MEDS ORDERED: methylPREDNISolone Sod Succ/PF 125 MG/2 ML VIAL ONE (21:29)
[2020-05-29] MEDS ORDERED: diphenhydrAMINE 50 MG/ML VIAL ONE (21:29)
[2020-05-29 22:58] LABS: Bacteria/HPF 4+ HPF (None Seen); Renal Epithelial 0-3 HPF (None Seen); Squamous Epithelial 0-3 HPF (0-3); WBC/HPF 21-50 HPF (0-3)
[2020-05-29 23:00] LABS: Bilirubin Negative (Negative); Blood, Urine Negative (Negative); Clarity Turbid (Clear); Glucose, Urine (Dipstick) Normal (Negative); Ketone, Urine Negative (Negative); Leukocyte 500 Leu/uL (Negative); Nitrite 1+ (Negative); Protein, Urine (Dipstick) 10 mg/dL (Neg-Trace); Specific Gravity, Urine 1.015 (1.002-1.036); Urobilinogen Normal mg/dL (Less than 2)
[2020-05-29] MEDS ORDERED: cefTRIAXone\\ROCEPHIN 1 GM VIAL ONE (23:18)
== END 2020-05-30 00:48 | disposition home or self-care (01) ==
LOC: ERS 20:00
DX: N39.0 Urinary tract infection, site not specified (principal); K81.1 Chronic cholecystitis; I10 Essential (primary) hypertension; E11.9 Type 2 diabetes mellitus without complications; E78.5 Hyperlipidemia, unspecified; Z79.899 Other long term (current) drug therapy
CPT/HCPCS: 36415; 74177; 80053; 81003; 81015; 83605; 83690; 85025; 87077; 87086; 87186; 96365; 96375; J0696; J1200; J2930; Q9967; S0028

== ENCOUNTER 2021-02-18 16:03 | Inpatient (IN) | payer MEDICARE ==
[2021-02-18 16:47] LABS: Hemoglobin 3.5 g/dL (12.0-16.0); Mean Corpuscular HGB CONC 32.3 g/dL (32.0-36.0); Mean Corpuscular Hemoglobin 28.9 pg (27.0-31.0); Mean Corpuscular Volume 89.5 fL (78.0-98.0); Mean Platelet Volume 7.9 fL (7.4-10.4); Platelet Count 222 thou/uL (130-400); RBC Distribution Width 16.7 % (11.5-14.5); Red Blood Cell (RBC) Count 1.19 mill/uL (4.20-5.40); White Blood Cell (WBC) Count 15.8 thou/uL (4.8-10.8)
[2021-02-18 17:03] LABS: Anisocytosis SLIGHT = 6-15 cells (100X) (0-5/hpf); Eosinophils 1 % (0-10); Lymphocytes 42 % (21-51); MDiff Complete? YES; Monocytes 4 % (0-10); Neutrophil 53 % (42-75); Nucleated RBC 2 % (0); Platelet Morphology Comment Appears Adequate; Polychromasia MODERATE = 3-4 cells (100X) (0-2/hpf); Reflex for Review?? YES
[2021-02-18 17:10] LABS: Bacteria/HPF 1+ HPF (None Seen); Bilirubin Negative (Negative); Blood, Urine Trace (Negative); Clarity Turbid (Clear); Glucose, Urine (Dipstick) Normal (Negative); Ketone, Urine Negative (Negative); Leukocyte 250 Leu/uL (Negative); Nitrite Negative (Negative); Protein, Urine (Dipstick) 10 mg/dL (Neg-Trace); RBC/HPF None Seen HPF (0-3); Specific Gravity, Urine 1.017 (1.002-1.036); Squamous Epithelial 0-3 HPF (0-3)
[2021-02-18 17:14] LABS: Analyzer IN Cardio ER; Base Excess -12.1 mEq/L (-2.0 to +3.0); Calcium, Ionized (venous) 1.02 mmol/L (1.16-1.32); Chloride (VBG) 112 mmol/L (98-106); Hemoglobin (Hb) 3.9 g/dL (11.7-16.1); Potassium (VBG) 3.72 mmol/L (3.70-5.30); Sodium 133.7 mmol/L (133-146); pH (venous) 7.35 (7.32-7.43)
[2021-02-18 17:15] LABS: Actual Bicarbonate (HCO3v) 13 mEq/L (22-28)
[2021-02-18 17:16] LABS: Amphetamine Not Detected (NotDetected); Barbiturates Screen Not Detected (NotDetected); Benzodiazepine Screen Not Detected (NotDetected); Cocaine Metabolite Screen Not Detected (NotDetected); Methadone Not Detected (NotDetected); Methamphetamine Not Detected (NotDetected); Opiate Screen Not Detected (NotDetected); Oxycodone Screen Not Detected (NotDetected); Phencyclidine (PCP) Not Detected (NotDetected); THC/Cannabinoid Screen Not Detected (NotDetected); Tricyclic Screen Not Detected (NotDetected)
[2021-02-18 17:32] LABS: ALT (SGPT) 10 U/L (8-55); AST (SGOT) 19 U/L (5-34); Albumin 2.4 g/dL (3.4-4.8); Alkaline Phosphatase 42 U/L (40-110); Anion Gap 14 mmol/L (10-20); BUN (Urea Nitrogen) 65 mg/dL (9.8-20.1); Bilirubin, Total 0.2 mg/dL (0.2-1.2); Calc. Creatinine Clearance 0 mL/min (70-130); Calcium 7.7 mg/dL (7.8-10.44); Carbon Dioxide 14 mmol/L (23-31); Chloride 111 mmol/L (98-107); Glucose 157 mg/dL (83-110); Protein, Total 4.4 g/dL (5.8-8.1); Sodium 135 mmol/L (136-145)
[2021-02-18] MEDS ORDERED: Famotidine/PF 20 mg/2ml Vial ONE (17:50)
[2021-02-18] MEDS ORDERED: methylPREDNISolone Sod Succ 40 MG VIAL ONE (17:50)
[2021-02-18] MEDS ORDERED: diphenhydrAMINE 50 MG/ML VIAL ONE (17:50)
[2021-02-18 18:02] LABS: PTT 28.9 sec (22.9-36.1)
[2021-02-18 18:03] LABS: INR-International Normal Ratio 2.2; Prothrombin Time 24.8 sec (12.0-14.7)
[2021-02-18 19:03] LABS: CKMB 7.8 ng/mL (0-6.6)
[2021-02-18] MEDS ORDERED: Ondansetron PF 4 MG/2 ML Vial ONE (19:34)
[2021-02-18] MEDS ORDERED: cefTRIAXone\\ROCEPHIN 2 GM VIAL ONE (19:34)
[2021-02-18 20:40] LABS: Lactic Acid 1.1 mmol/L (0.5-2.2)
[2021-02-18 21:20] LABS: SARS-CoV-2 NAA Rapid Test Not Detected (NotDetected)
[2021-02-18] MEDS ORDERED: HumaLOG 300 UNITS/3 ML VIAL SC PRN (22:05)
[2021-02-18] MEDS ORDERED: Ondansetron PF 4 MG/2 ML Vial IVP PRN (22:06)
[2021-02-18] MEDS ORDERED: Acetaminophen 325 MG TAB PO PRN (22:06)
[2021-02-18] MEDS ORDERED: Furosemide 20 MG/2 ML VIAL SLOW IVP SCH (22:15)
[2021-02-19 02:01] LABS: Troponin I 9.254 ng/mL (< 0.028)
[2021-02-19] MEDS: Furosemide 20 MG/2 ML VIAL SLOW IVP SCH ×2 (05:46→15:27)
[2021-02-19 06:26] LABS: Band 1 % (5-11); Hemoglobin 11.6 g/dL (12.0-16.0); Lymphocytes 12 % (21-51); MDiff Complete? YES; Mean Corpuscular HGB CONC 35.4 g/dL (32.0-36.0); Mean Corpuscular Hemoglobin 31.8 pg (27.0-31.0); Mean Corpuscular Volume 89.9 fL (78.0-98.0); Mean Platelet Volume 7.9 fL (7.4-10.4); Monocytes 2 % (0-10); Neutrophil 84 % (42-75); Platelet Count 198 thou/uL (130-400); Platelet Morphology Comment Appears Adequate; RBC Distribution Width 13.8 % (11.5-14.5); Reactive Lymphocytes 1 % (0-10); Red Blood Cell (RBC) Count 3.64 mill/uL (4.20-5.40); White Blood Cell (WBC) Count 14.4 thou/uL (4.8-10.8)
[2021-02-19 06:37] LABS: ALT (SGPT) 21 U/L (8-55); AST (SGOT) 82 U/L (5-34); Alkaline Phosphatase 46 U/L (40-110); Anion Gap 15 mmol/L (10-20); BUN (Urea Nitrogen) 50 mg/dL (9.8-20.1); Bilirubin, Total 1.1 mg/dL (0.2-1.2); Calc. Creatinine Clearance 0 mL/min (70-130); Calcium 8.1 mg/dL (7.8-10.44); Carbon Dioxide 16 mmol/L (23-31); Chloride 113 mmol/L (98-107); Globulin 2.4 g/dL (2.4-3.5); Glucose 162 mg/dL (83-110); Potassium 3.6 mmol/L (3.5-5.1); Protein, Total 5.4 g/dL (5.8-8.1); Sodium 140 mmol/L (136-145)
[2021-02-19 09:21] LABS: Hemoglobin 11.5 g/dL (12.0-16.0)
[2021-02-19 09:55] LABS: Troponin I 16.772 ng/mL (< 0.028)
[2021-02-19] MEDS: Venlafaxine HCl XR 75 MG CAP PO SCH ×2 (11:23→21:07)
[2021-02-19] MEDS: Amlodipine 10 MG TAB PO SCH (11:23)
[2021-02-19] MEDS: Lorazepam 0.5 MG TAB PO PRN (11:23)
[2021-02-19] MEDS: cefTRIAXone\\ROCEPHIN 1 GM in Sodium Chloride 0.9% 100 ML IVPB SCH (20:59)
[2021-02-19] MEDS: Haloperidol 1 MG TAB PO SCH (21:06)
[2021-02-19] MEDS: Aripiprazole 10 MG TAB PO SCH (21:07)
[2021-02-19] MEDS: Polyethylene Glycol 3350 17 GM Packet PO SCH (21:07)
[2021-02-19] MEDS: Atorvastatin Calcium 40 MG TAB PO SCH (21:07)
[2021-02-20] MEDS: Lorazepam 0.5 MG TAB PO PRN
[2021-02-20] MEDS: Furosemide 20 MG/2 ML VIAL SLOW IVP SCH ×2 (06:30→15:34)
[2021-02-20] MEDS: Polyethylene Glycol 3350 17 GM Packet PO SCH ×2 (08:26→21:02)
[2021-02-20] MEDS: Amlodipine 10 MG TAB PO SCH (08:26)
[2021-02-20] MEDS: FLU VACC QS2021-22(65YR UP)/PF 240 MCG/0.7 ML SYRINGE IM ONE (08:26)
[2021-02-20] MEDS: Venlafaxine HCl XR 75 MG CAP PO SCH ×2 (10:30→21:02)
[2021-02-20 15:34] LABS: Anion Gap 13 mmol/L (10-20); BUN (Urea Nitrogen) 37 mg/dL (9.8-20.1); Calc. Creatinine Clearance 38 mL/min (70-130); Calcium 8.8 mg/dL (7.8-10.44); Carbon Dioxide 25 mmol/L (23-31); Chloride 105 mmol/L (98-107); Glucose 148 mg/dL (83-110); Sodium 140 mmol/L (136-145)
[2021-02-20] MEDS: Sodium Bicarbonate Tab 325 MG TAB PO SCH ×2 (18:15→21:02)
[2021-02-20] MEDS: cefTRIAXone\\ROCEPHIN 1 GM in Sodium Chloride 0.9% 100 ML IVPB SCH (20:54)
[2021-02-20] MEDS: Haloperidol 1 MG TAB PO SCH (21:02)
[2021-02-20] MEDS: Aripiprazole 10 MG TAB PO SCH (21:02)
[2021-02-20] MEDS: Atorvastatin Calcium 40 MG TAB PO SCH (21:02)
[2021-02-21 04:05] LABS: Anion Gap 17 mmol/L (10-20); Calc. Creatinine Clearance 47 mL/min (70-130); Calcium 8.7 mg/dL (7.8-10.44); Carbon Dioxide 22 mmol/L (23-31); Chloride 104 mmol/L (98-107); Glucose 118 mg/dL (83-110); Potassium 3.1 mmol/L (3.5-5.1); Sodium 140 mmol/L (136-145)
[2021-02-21 04:12] LABS: BUN (Urea Nitrogen) 32 mg/dL (9.8-20.1); Iron 32 ug/dL (50-170); Iron Binding Capacity, Total 420 mcg/dL (265-497)
[2021-02-21 04:20] LABS: Hemoglobin 12.5 g/dL (12.0-16.0); Mean Corpuscular HGB CONC 34.1 g/dL (32.0-36.0); Mean Corpuscular Hemoglobin 31.3 pg (27.0-31.0); Mean Platelet Volume 7.9 fL (7.4-10.4); Platelet Count 222 thou/uL (130-400); RBC Distribution Width 15.4 % (11.5-14.5); White Blood Cell (WBC) Count 13.6 thou/uL (4.8-10.8)
[2021-02-21] MEDS: Furosemide 20 MG/2 ML VIAL SLOW IVP SCH (06:01)
[2021-02-21] MEDS: Potassium Chloride 20 MEQ TAB PO SCH ×5 (07:17→23:10)
[2021-02-21] MEDS: Venlafaxine HCl XR 75 MG CAP PO SCH ×2 (10:34→21:02)
[2021-02-21] MEDS: Polyethylene Glycol 3350 17 GM Packet PO SCH ×2 (10:35→21:03)
[2021-02-21] MEDS: Sodium Bicarbonate Tab 325 MG TAB PO SCH ×3 (10:35→21:02)
[2021-02-21] MEDS: Amlodipine 10 MG TAB PO SCH (10:37)
[2021-02-21] MEDS: FLU VACC QS2021-22(65YR UP)/PF 240 MCG/0.7 ML SYRINGE IM ONE (10:43)
[2021-02-21] MEDS ORDERED: Bisacodyl 10 MG SUPP PR PRN (10:43)
[2021-02-21] MEDS ORDERED: Senokot 8.6 MG TAB PO SCH (10:45)
[2021-02-21] MEDS: Iron, Sodium Ferric Gluconate 250 MG in Sodium Chloride 0.9% 250 ML 250 ML IVPB SCH (12:42)
[2021-02-21 13:42] VITALS: BMI 24.6
[2021-02-21 15:41] LABS: Potassium 3.9 mmol/L (3.5-5.1)
[2021-02-21 15:47] LABS: Magnesium 1.5 mg/dL (1.6-2.6)
[2021-02-21] MEDS: Haloperidol 1 MG TAB PO SCH (21:02)
[2021-02-21] MEDS: cefTRIAXone\\ROCEPHIN 1 GM in Sodium Chloride 0.9% 100 ML IVPB SCH (21:02)
[2021-02-21] MEDS: Atorvastatin Calcium 40 MG TAB PO SCH (21:02)
[2021-02-21] MEDS: Aripiprazole 10 MG TAB PO SCH (21:03)
[2021-02-22] MEDS: Potassium Chloride 20 MEQ TAB PO SCH ×3 (03:31→11:25)
[2021-02-22 04:39] LABS: Hemoglobin 13.2 g/dL (12.0-16.0); Platelet Count 244 thou/uL (130-400)
[2021-02-22 05:21] LABS: Troponin I 6.302 ng/mL (< 0.028)
[2021-02-22 06:26] LABS: Anion Gap 17 mmol/L (10-20); BUN (Urea Nitrogen) 35 mg/dL (9.8-20.1); Calc. Creatinine Clearance 47 mL/min (70-130); Calcium 8.5 mg/dL (7.8-10.44); Carbon Dioxide 19 mmol/L (23-31); Chloride 107 mmol/L (98-107); Glucose 103 mg/dL (83-110); Magnesium 1.5 mg/dL (1.6-2.6); Potassium 5.2 mmol/L (3.5-5.1); Sodium 138 mmol/L (136-145)
[2021-02-22] MEDS ORDERED: Magnesium Sulfate 4 GM in Sodium Chloride 0.9% 250 ML 250 ML IVPB SCH (08:00)
[2021-02-22] MEDS: Sodium Bicarbonate Tab 325 MG TAB PO SCH (08:34)
[2021-02-22] MEDS: Amlodipine 10 MG TAB PO SCH (08:34)
[2021-02-22] MEDS: Venlafaxine HCl XR 75 MG CAP PO SCH (08:35)
[2021-02-22] MEDS: Polyethylene Glycol 3350 17 GM Packet PO SCH (08:35)
[2021-02-22] MEDS ORDERED: Senokot 8.6 MG TAB PO SCH (09:00)
[2021-02-22 09:36] VITALS: TEMP 97.8
[2021-02-22] MEDS: Iron, Sodium Ferric Gluconate 250 MG in Sodium Chloride 0.9% 250 ML 250 ML IVPB SCH (11:25)
[2021-02-22 13:00] VITALS: BP 114/54
== END 2021-02-22 15:00 | disposition home health service (06) | DRG 871 ==
LOC: ERS 16:03 → IMCU/EMU 21:09 → 2NO 02-21 17:30
PROVIDERS: ADMIT Internal Medicine; ATTEND Family Medicine
PROC: 30233N1 Transfusion of Nonautologous Red Blood Cells into Peripheral Vein, Percutaneous Approach (ICD-10-PCS; principal; 2021-02-18)
DX: A41.51 Sepsis due to Escherichia coli [E. coli] (principal); I21.A1 Myocardial infarction type 2; G93.41 Metabolic encephalopathy; I69.351 Hemiplegia and hemiparesis following cerebral infarction affecting right dominant side; I50.32 Chronic diastolic (congestive) heart failure; N17.9 Acute kidney failure, unspecified; E87.2 Acidosis; I13.0 Hypertensive heart and chronic kidney disease with heart failure and stage 1 through stage 4 chronic kidney disease, or unspecified chronic kidney disease; N39.0 Urinary tract infection, site not specified; D62 Acute posthemorrhagic anemia; Z66 Do not resuscitate; Z20.822 Contact with and (suspected) exposure to COVID-19; E03.9 Hypothyroidism, unspecified; E78.5 Hyperlipidemia, unspecified; E11.22 Type 2 diabetes mellitus with diabetic chronic kidney disease; N18.9 Chronic kidney disease, unspecified; D63.1 Anemia in chronic kidney disease; F01.50 Vascular dementia, unspecified severity, without behavioral disturbance, psychotic disturbance, mood disturbance, and anxiety; D50.9 Iron deficiency anemia, unspecified; K52.89 Other specified noninfective gastroenteritis and colitis; I35.0 Nonrheumatic aortic (valve) stenosis; E87.6 Hypokalemia; Z88.5 Allergy status to narcotic agent; Z91.041 Radiographic dye allergy status; Z91.013 Allergy to seafood; Z88.8 Allergy status to other drugs, medicaments and biological substances; Z79.899 Other long term (current) drug therapy; Z95.0 Presence of cardiac pacemaker; Z90.710 Acquired absence of both cervix and uterus; Z79.890 Hormone replacement therapy; Z98.1 Arthrodesis status; Z79.4 Long term (current) use of insulin; Z79.01 Long term (current) use of anticoagulants
CPT/HCPCS: 36415; 36416; 36430; 51702; 70450; 71045; 71260; 74177; 80048; 80053; 80306; 81003; 81015; 82274; 82553; 82570; 82728; 82805; 83540; 83550; 83605; 83735; 84300; 84443; 84484; 85014; 85018; 85025; 85027; 85049; 85060; 85610; 85730; 86850; 86900; 86901; 87040; 87077; 87086; 87186; 90471; 90662; 90732; 93005; 93306; 96365; 96375; G0008; G0009; J0696; J1200; J1815; J1940; J2405; J2916; J2920; J3475; J3490; J7050; P9016; S0028; U0002

== ENCOUNTER 2021-06-10 14:36 | Inpatient (IN) | payer MEDICARE ==
[2021-06-10 15:31] LABS: #Eosinphils 0.4 thou/uL (0.0-0.7); #Lymphocytes 2.6 thou/uL (1.20-3.40); #Monocytes 0.7 thou/uL (0.11-0.59); #Neutrophils 6.6 thou/uL (1.40-6.50); %Basophils 0.1 % (0.0-1.0); %Eosinophils 4.3 % (0.0-10.0); %Lymphocytes 24.8 % (21.0-51.0); %Monocytes 7.2 % (0.0-10.0); %Neutrophils 63.7 % (42.0-75.0); Hemoglobin 11.3 g/dL (12.0-16.0); Mean Corpuscular HGB CONC 31.5 g/dL (32.0-36.0); Mean Corpuscular Hemoglobin 28.5 pg (27.0-31.0); Mean Corpuscular Volume 90.3 fL (78.0-98.0); Mean Platelet Volume 8.2 fL (7.4-10.4); Platelet Count 188 thou/uL (130-400); RBC Distribution Width 12.3 % (11.5-14.5); Red Blood Cell (RBC) Count 3.97 mill/uL (4.20-5.40); White Blood Cell (WBC) Count 10.4 thou/uL (4.8-10.8)
[2021-06-10 16:11] LABS: ALT (SGPT) 23 U/L (8-55); AST (SGOT) 23 U/L (5-34); Albumin 3.5 g/dL (3.4-4.8); Alkaline Phosphatase 121 U/L (40-110); Anion Gap 13 mmol/L (10-20); BUN (Urea Nitrogen) 14 mg/dL (9.8-20.1); Bilirubin, Total 0.5 mg/dL (0.2-1.2); Calc. Creatinine Clearance 0 mL/min (70-130); Calcium 9.1 mg/dL (7.8-10.44); Carbon Dioxide 25 mmol/L (23-31); Chloride 109 mmol/L (98-107); Globulin 3.2 g/dL (2.4-3.5); Glucose 158 mg/dL (83-110); Potassium 3.9 mmol/L (3.5-5.1); Protein, Total 6.7 g/dL (5.8-8.1); Sodium 143 mmol/L (136-145)
[2021-06-10 16:25] LABS: CKMB 2.3 ng/mL (0-6.6)
[2021-06-10] MEDS ORDERED: Aspirin Chewable 81 MG TAB ONE (16:30)
[2021-06-10] MEDS ORDERED: Furosemide 100 MG/10 ML VIAL ONE (16:30)
[2021-06-10] MEDS ORDERED: Nitroglycerin 2% Ointment 1 INCH/1 GM Packet ONE (16:30)
[2021-06-10] MEDS ORDERED: Ondansetron ODT 4 MG TAB PO PRN (17:10)
[2021-06-10] MEDS ORDERED: Senokot S 8.6-50 MG TAB PO PRN (17:10)
[2021-06-10] MEDS ORDERED: Acetaminophen 325 MG TAB PO PRN (17:10)
[2021-06-10] MEDS ORDERED: Bisacodyl 5 MG TAB PO PRN (17:10)
[2021-06-10] MEDS ORDERED: HumaLOG 300 UNITS/3 ML VIAL SC PRN (17:30)
[2021-06-10] MEDS ORDERED: Dextrose 50% Abboject 50 ML SYRINGE SLOW IVP PRN (17:30)
[2021-06-10] MEDS ORDERED: Dextrose 5% in Water 1,000 ML IV PRN (17:30)
[2021-06-10 18:08] LABS: SARS-CoV-2 NAA Rapid Test Not Detected (NotDetected)
[2021-06-10 19:06] LABS: Hemoglobin A1c 6.1 % (4.0-6.0)
[2021-06-10 19:07] LABS: Magnesium 1.6 mg/dL (1.6-2.6); Phosphorus 3.9 mg/dL (2.3-4.7)
[2021-06-10 19:11] LABS: Troponin I 0.041 ng/mL (< 0.028)
[2021-06-10 19:13] VITALS: BMI 27.7
[2021-06-10] MEDS ORDERED: Sodium Bicarbonate Tab 325 MG TAB PO SCH (21:00)
[2021-06-10] MEDS: Pregabalin 50 MG CAP PO SCH (21:52)
[2021-06-10] MEDS: Atorvastatin Calcium 40 MG TAB PO SCH (21:52)
[2021-06-10] MEDS: Haloperidol 1 MG TAB PO SCH (21:53)
[2021-06-10] MEDS: Famotidine 20 MG TAB PO SCH (21:53)
[2021-06-10] MEDS: Aripiprazole 10 MG TAB PO SCH (21:53)
[2021-06-10] MEDS: Venlafaxine HCl XR 75 MG CAP PO SCH (21:54)
[2021-06-11 04:22] LABS: #Eosinphils 0.4 thou/uL (0.0-0.7); #Lymphocytes 3.1 thou/uL (1.20-3.40); #Monocytes 0.9 thou/uL (0.11-0.59); #Neutrophils 5.8 thou/uL (1.40-6.50); %Basophils 0.4 % (0.0-1.0); %Eosinophils 4.1 % (0.0-10.0); %Lymphocytes 30.5 % (21.0-51.0); %Monocytes 8.4 % (0.0-10.0); %Neutrophils 56.6 % (42.0-75.0); Mean Corpuscular HGB CONC 33.5 g/dL (32.0-36.0); Mean Corpuscular Hemoglobin 30.4 pg (27.0-31.0); Mean Corpuscular Volume 90.6 fL (78.0-98.0); Mean Platelet Volume 8.2 fL (7.4-10.4); Platelet Count 175 thou/uL (130-400); RBC Distribution Width 12.1 % (11.5-14.5); Red Blood Cell (RBC) Count 3.63 mill/uL (4.20-5.40); White Blood Cell (WBC) Count 10.2 thou/uL (4.8-10.8)
[2021-06-11 04:47] LABS: ALT (SGPT) 19 U/L (8-55); AST (SGOT) 19 U/L (5-34); Albumin 3.2 g/dL (3.4-4.8); Alkaline Phosphatase 102 U/L (40-110); Anion Gap 13 mmol/L (10-20); BUN (Urea Nitrogen) 16 mg/dL (9.8-20.1); Bilirubin, Total 0.6 mg/dL (0.2-1.2); Calc. Creatinine Clearance 55 mL/min (70-130); Calcium 8.9 mg/dL (7.8-10.44); Carbon Dioxide 26 mmol/L (23-31); Cardiac Risk 4.2 (Less than 4.5); Chloride 107 mmol/L (98-107); Cholesterol 130 mg/dl (< 200 Desired); Glucose 138 mg/dL (83-110); HDL Cholesterol 31 mg/dL (>60 Neg Risk); LDL Cholesterol, Calculated 64 mg/dL; Potassium 3.5 mmol/L (3.5-5.1); Protein, Total 6.2 g/dL (5.8-8.1); Sodium 142 mmol/L (136-145); Triglycerides 177 mg/dL (Less than 150)
[2021-06-11] MEDS: Levothyroxine Sodium 25 MCG TAB PO SCH (06:14)
[2021-06-11] MEDS: Venlafaxine HCl XR 75 MG CAP PO SCH ×2 (09:31→21:01)
[2021-06-11] MEDS: Fenofibrate Nanocrystallized 145 MG TAB PO SCH (09:31)
[2021-06-11] MEDS: Ferrous Sulfate 325 MG TAB PO SCH (09:31)
[2021-06-11] MEDS: Famotidine 20 MG TAB PO SCH ×2 (09:31→21:01)
[2021-06-11] MEDS: Enoxaparin Sodium 40 MG/0.4 ML SYRINGE SC SCH (09:31)
[2021-06-11] MEDS: Furosemide 40 MG/4 ML VIAL SLOW IVP SCH (09:32)
[2021-06-11] MEDS: Amlodipine 10 MG TAB PO SCH (12:37)
[2021-06-11] MEDS: HumaLOG 300 UNITS/3 ML VIAL SC PRN ×2 (12:38→17:12)
[2021-06-11] MEDS ORDERED: Potassium Chloride 20 MEQ TAB PO SCH (12:45)
[2021-06-11] MEDS ORDERED: Magnesium Oxide 400 MG TAB PO SCH ×2 (13:15→21:00)
[2021-06-11] MEDS: Atorvastatin Calcium 40 MG TAB PO SCH (21:01)
[2021-06-11] MEDS: Aripiprazole 10 MG TAB PO SCH (21:01)
[2021-06-11] MEDS: Pregabalin 50 MG CAP PO SCH (21:02)
[2021-06-11] MEDS: Haloperidol 1 MG TAB PO SCH (21:02)
[2021-06-12] MEDS: Levothyroxine Sodium 25 MCG TAB PO SCH (05:23)
[2021-06-12] MEDS: Ferrous Sulfate 325 MG TAB PO SCH (09:05)
[2021-06-12] MEDS: Famotidine 20 MG TAB PO SCH (09:05)
[2021-06-12] MEDS: Fenofibrate Nanocrystallized 145 MG TAB PO SCH (09:05)
[2021-06-12] MEDS: Amlodipine 10 MG TAB PO SCH (09:05)
[2021-06-12] MEDS: Furosemide 40 MG/4 ML VIAL SLOW IVP SCH (09:06)
[2021-06-12] MEDS: Venlafaxine HCl XR 75 MG CAP PO SCH (09:06)
[2021-06-12] MEDS: Enoxaparin Sodium 40 MG/0.4 ML SYRINGE SC SCH (09:07)
[2021-06-12 16:31] VITALS: BP 134/60; TEMP 98.2
== END 2021-06-12 17:58 | disposition home or self-care (01) | DRG 291 ==
LOC: ERS 14:36 → 2NO 16:36
PROVIDERS: ADMIT Family Medicine; ATTEND Family Medicine
DX: I11.0 Hypertensive heart disease with heart failure (principal); I50.33 Acute on chronic diastolic (congestive) heart failure; I69.951 Hemiplegia and hemiparesis following unspecified cerebrovascular disease affecting right dominant side; Z20.822 Contact with and (suspected) exposure to COVID-19; E11.9 Type 2 diabetes mellitus without complications; E78.5 Hyperlipidemia, unspecified; I25.10 Atherosclerotic heart disease of native coronary artery without angina pectoris; E03.9 Hypothyroidism, unspecified; F01.50 Vascular dementia, unspecified severity, without behavioral disturbance, psychotic disturbance, mood disturbance, and anxiety; I35.0 Nonrheumatic aortic (valve) stenosis; D50.9 Iron deficiency anemia, unspecified; K81.1 Chronic cholecystitis; Z88.8 Allergy status to other drugs, medicaments and biological substances; Z95.0 Presence of cardiac pacemaker; Z91.013 Allergy to seafood; Z91.041 Radiographic dye allergy status; Z79.899 Other long term (current) drug therapy
CPT/HCPCS: 36415; 36416; 71045; 80053; 80061; 82553; 83036; 83735; 83880; 84100; 84443; 84484; 85025; 93005; 93306; 94760; 96374; J1650; J1815; J1940; U0002